=== PATIENT | male | born 1960 | race Caucasian/White ===

== ENCOUNTER 2016-07-15 20:49 | Emergency (ER) | payer OTHER ==
[~2016-07-15 20:49] MED LIST: /AMLO25TA PO; /PANT40TA PO; COUM7.5T PO; IBUPPOW25 PO; PERC5TAB PO; TYLE325T5 PO
[2016-07-15] MEDS ORDERED: ONDANSETRON 4MG/2ML VIAL (J2405) As Ordered ONE (22:12)
[2016-07-15] MEDS ORDERED: MORPHINE 4 MG/ML 1ML SYRINGE As Ordered ONE (22:13)
[2016-07-15 22:38] LABS: BASO % 0.6 % (0.0-1.0); EOS # 0.2 K/mm3 (0.0-0.50); EOS % 1.7 % (0.0-3.0); LARGE UNSTAINED CELL # 0.2 K/mm3 (0.0-0.4); LARGE UNSTAINED CELL % 1.6 % (0.0-4.0); LYMPH # 2.8 K/mm3 (1.5-4.5); LYMPH % 31.3 % (24.0-44.0); MEAN CORPUSCULAR HGB CONC 33.8 g/dl (32.0-36.5); MEAN CORPUSCULAR VOLUME 94.5 fl (80.0-96.0); MONO # 0.4 K/mm3 (0.0-0.8); MONO % 4.5 % (0.0-5.0); NEUTROPHILS # 5.5 K/mm3 (1.8-7.7); NEUTROPHILS % 60.3 % (36.0-66.0); PLATELET COUNT, AUTOMATED 193 k/mm3 (150-450); RED CELL DISTRIBUTION WIDTH 12.4 % (11.5-14.5)
[2016-07-15 22:55] LABS: ALBUMIN 3.6 GM/DL (3.2-5.2); ALKALINE PHOSPHATASE 98 U/L (45-117); ALT/SGPT 28 U/L (12-78); AMYLASE 31 U/L (25-115); ANION GAP 8 MEQ/L (8-16); AST/SGOT 20 U/L (15-37); BILIRUBIN,DIRECT < 0.1 MG/DL (0.0-0.2); BILIRUBIN,TOTAL 0.4 MG/DL (0.2-1.0); BLOOD UREA NITROGEN 12 MG/DL (7-18); CALCIUM LEVEL 8.2 MG/DL (8.5-10.1); CARBON DIOXIDE LEVEL 27 MEQ/L (21-32); CHLORIDE LEVEL 110 MEQ/L (98-107); CREATININE FOR GFR 0.86 MG/DL (0.70-1.30); GLOMERULAR FILTRATION RATE > 60.0 (>56); GLUCOSE, FASTING 102 MG/DL (70-105); POTASSIUM SERUM 3.9 MEQ/L (3.5-5.1); SODIUM LEVEL 145 MEQ/L (136-145); TOTAL PROTEIN 7.2 GM/DL (6.4-8.2)
[2016-07-15] MEDS ORDERED: ISOVUE-370 76% 100ML VIAL (Q9967) As Ordered ONE (22:58)
--- NOTE | 2016-07-15 23:40 | REPUSA ---
CT of the abdomen and pelvis with contrast Clinical statement: Pain. Technique: Multiple axial CT images were obtained from the base of the lungs through the floor of the pelvis utilizing 5 mm axial slices after administration of nonionic intravenous contrast. Coronal an d sagittal reconstructions were also obtained. Comparison: 03/09/2012. Findings: Chest: The visualized lung bases are clear. Abdomen: The liver, spleen, pancreas, left kidney, gallbladder, and adrenal glands are unremarkable. Multiple simple cysts are seen in the right kidney. There is a small duodenal diverticulum. The aorta demonstrates mild atherosclerotic disease but is within normal limits. There is no evidence of abdom inal lymphadenopathy or ascites. Pelvis: The bowel is unremarkable, with no obstructive or inflammatory changes. The appendix is ye l. The urinary bladder is within normal limits. The other pelvic structures appear grossly intact. Th ere is no evidence of pelvic lymphadenopathy or ascites. Bones: There are no suspicious osseous abnormalities seen. Impression: 1. No acute obstructive or inflammatory bowel changes. The appendix is normal. 2. Multiple simple right renal cysts.
--- NOTE | 2016-07-16 00:42 | EDDOCDS ---
Nurse's Notes [facility] Name: Domenico Hughes Age: 56 yrs Sex: Male : 1960 Arrival Date: 07/15/2016 Time: 20:49 Bed TR8 Private MD: Scott Navarrete Diagnosis: Lower abdominal pain, unspecified Presentation: 07/15 21:04 Presenting complaint: Patient states: Right lower abdomen pain since yesterday. pain rs3 unchanged with position change. Was seen at urgent care today. said if it get worse to go to ER. denies of diarrhea,nausea, vomiting. Adult Sepsis Screening: The patient does not have new or worsening altered mentation. Patient's respiratory rate is less than 22. Systolic blood pressure is greater than 100. Patient has a qSOFA score of 0- Negative Sepsis Screen. Suicide/Homicide risk assessment- the patient denies having any suicidal and/or homicidal ideations and does not present with any other emotional, behavioral or mental health complaints. Status: Patient is not a room service attendant or dependent. Transition of care: patient was not received from another setting of care. 21:04 Acuity: LIONEL Level 3 rs3 21:04 Method Of Arrival: Walkin/Carried/Asstd rs3 Triage Assessment: 21:04 General: Appears in no apparent distress. Pain: Location: right lower quadrant. Pt rs3 Declines HIV testing. GI: Reports lower abdominal pain. Historical: - Allergies: PENICILLINS (Rash); Aspirin (Rash); - Home Meds: 1. amlodipine 5 mg Oral tab 1 tab once daily 2. Xarelto 20 mg oral tab 1 tab once daily 3. Protonix 40 mg Oral TbEC 1 tab once daily 4. atorvastatin 80 mg oral tab 1 tab once daily - PMHx: Hypercholesterolemia; GERD; Hypertension; DVT; - PSHx: none; - Social history: Smoking status: Patient uses tobacco products, light tobacco smoker. No barriers to communication noted, The patient speaks fluent Ugandan. - Family history: Not pertinent. - : The pt / caregiver states he / she is on anticoagulants: Xarelto Home medication list is obtained from the patient. - Exposure Risk Screening:: None identified. Screenin:28 Screening information is obtained from the patient. Fall risk: No risks identified. cf2 Assistance ADL's: requires no assistance with activities of daily living. Abuse/DV Screen: The patient / caregiver reports he/she is: not in a situation that causes fear, pain or injury. Nutritional screening: No deficits noted. Advance Directives: Further advance directive information is declined. home support is adequate. Assessment: 22:28 Adult Sepsis Screening: The patient does not have new or worsening altered mentation. cf2 Patient's respiratory rate is less than 22. Systolic blood pressure is greater than 100. Patient has a qSOFA score of 0- Negative Sepsis Screen. General: Appears in no apparent distress, comfortable, Behavior is appropriate for age, cooperative. Pain: Location: abdomen. Neurological: No deficits noted. EENT: No deficits noted. Cardiovascular: No deficits noted. Respiratory: No deficits noted. GI: Abdomen is flat, non- distended Bowel sounds present X 4 quads. Abd is soft Abd is tender to palpation in right lower quadrant. : No deficits noted. Derm: No deficits noted. Musculoskeletal: No deficits noted. Injury Description: No known injury. Vital Signs: 20:51 BP 152 / 80; Pulse 88; Resp 18; Temp 97.7; Pulse Ox 95% ; Weight 86.18 kg; Height 5 ft. elp 9 in. (175.26 cm); 07/16 00:40 BP 124 / 75; Pulse 79; Resp 16; Temp 97.6(T); cz 07/15 20:51 Body Mass Index 28.06 (86.18 kg, 175.26 cm) elp Vitals: 07/15 20:51 Log In Time: July 15, 2016 at 20:49. elp ED Course: 20:50 Patient visited by Lana Trujillo PCA. elp 20:50 Scott Navarrete DO is Private Physician. elp 20:50 Scott Navarrete DO is Private Physician. elp 20:50 Patient moved to Waiting elp 20:51 Patient visited by Lana Trujillo PCA. elp 20:51 Patient moved to Pre RCE elp 21:07 Triage Initiated rs3 21:40 Patient moved to Triage 3 jo3 21:46 Marcos English [facility]-C [facility]. ck7 21:46 Jose Manuel Cabrera DO is Attending Physician. ck7 21:46 Patient visited by Marcos English RPA-C. ck7 22:05 Patient moved to I2 / M2 cz 22:26 Sandy Bartholomew,RN is Primary Nurse. cf2 22:26 Patient visited by Sandy Bartholomew,VIDHI. cf2 22:27 Amylase Sent. cf2 22:27 Basic Metabolic Profile Sent. cf2 22:27 CBC with Diff Sent. cf2 22:27 Lipase Sent. cf2 22:27 Liver Profile Sent. cf2 22:27 Urinalysis Sent. cf2 22:27 Urine Culture Sent. cf2 22:28 The patient / caregiver is instructed regarding the plan of care and ED course. Patient cf2 has correct armband on for positive identification. Placed in gown. Bed in low position. Call light in reach. Side rails up X 1. Side rails up X2. Property :Personal belongings accompany Pt. Door closed. Noise minimized. Visitors limited. Lights dimmed. Moved to private room. Verbal reassurance given. Warm blanket given. Pillow given. Head of bed elevated. Diet: Patient is NPO. 22:28 Inserted saline lock: 20 gauge in left antecubital area and blood collected. The cf2 patient tolerated the procedure well. No procedures done that require assistance. 23:07 Patient visited by Marcos English RPA-C. ck7 23:19 [facility] Payment Agreement was scanned into [email or web address] and attached to record. ks 23:38 Patient visited by Marcos English RPA-C. ck7 07/16 00:06 CT ABD & PELVIS: IV Contrast Only Returned. EDMS 00:25 Patient moved to [facility] Administered Medications: 07/15 22:26 Drug: NS 0.9% 1000 ml [sodium chloride 0.9 % intravenous solution] Route: IV; Rate: cf2 bolus; Site: left antecubital; 07/16 00:39 Follow up: IV Status: Completed infusion 07/15 22:27 Drug: morphine 4 mg [morphine 4 mg/mL intravenous cartridge (1 mL)] Route: IVP; Site: cf2 left antecubital; 22:27 Drug: Ondansetron 4 mg [ondansetron HCl 2 mg/mL intravenous solution (2 mL)] Route: cf2 IVP; Site: left antecubital; Order Results: Lab Order: Amylase; SPEC'M 07/15/16 22:23 Test: AMYLASE; Value: 31; Range: 25-115; Units: U/L; Status: F Lab Order: Basic Metabolic Profile; SPEC07/15/16 22:23 Test: GLUCOSE, FASTING; Value: 102; Range: 70-105; Units: MG/DL; Status: F Test: BLOOD UREA NITROGEN; Value: 12; Range: 7-18; Units: MG/DL; Status: F Test: CREATININE FOR GFR; Value: 0.86; Range: 0.70-1.30; Units: MG/DL; Status: F Test: GLOMERULAR FILTRATION RATE; Value: > 60.0; Range: >56; Status: F Test: SODIUM LEVEL; Value: 145; Range: 136-145; Units: MEQ/L; Status: F Test: POTASSIUM SERUM; Value: 3.9; Range: 3.5-5.1; Units: MEQ/L; Status: F Test: CHLORIDE LEVEL; Value: 110; Range: 98-107; Abnormal: Above high normal; Units: MEQ/L; Status: F Test: CARBON DIOXIDE LEVEL; Value: 27; Range: 21-32; Units: MEQ/L; Status: F Test: ANION GAP; Value: 8; Range: 8-16; Units: MEQ/L; Status: F Test: CALCIUM LEVEL; Value: 8.2; Range: 8.5-10.1; Abnormal: Below low normal; Units: MG/DL; Status: F Test Note: ; Units are mL/min/1.73 m2 Chronic Kidney Disease Staging per NKF: Stage I & II GFR >=60 Normal to Mildly Decreased Stage III GFR 30-59 Moderately Decreased Stage IV GFR 15-29 Severely Decreased Stage V GFR <15 Very Little GFR Left ESRD GFR <15 on [employer]ATER [employer]PER[employer] Lab Order: CBC with Diff; SPEC07/15/16 22:23 Test: WHITE BLOOD COUNT; Value: 9.0; Range: 4.0-10.0; Units: K/mm3; Status: F Test: RED BLOOD COUNT; Value: 5.05; Range: 4.30-6.10; Units: M/mm3; Status: F Test: HEMOGLOBIN; Value: 16.2; Range: 14.0-18.0; Units: g/dl; Status: F Test: HEMATOCRIT; Value: 47.8; Range: 42.0-52.0; Units: %; Status: F Test: MEAN CORPUSCULAR VOLUME; Value: 94.5; Range: 80.0-96.0; Units: fl; Status: F Test: MEAN CORPUSCULAR HEMOGLOBIN; Value: 32.0; Range: 27.0-33.0; Units: pg; Status: F Test: MEAN CORPUSCULAR HGB CONC; Value: 33.8; Range: 32.0-36.5; Units: g/dl; Status: F Test: RED CELL DISTRIBUTION WIDTH; Value: 12.4; Range: 11.5-14.5; Units: %; Status: F Test: PLATELET COUNT, AUTOMATED; Value: 193; Range: 150-450; Units: k/mm3; Status: F Test: NEUTROPHILS %; Value: 60.3; Range: 36.0-66.0; Units: %; Status: F Test: LYMPH %; Value: 31.3; Range: 24.0-44.0; Units: %; Status: F Test: MONO %; Value: 4.5; Range: 0.0-5.0; Units: %; Status: F Test: EOS %; Value: 1.7; Range: 0.0-3.0; Units: %; Status: F Test: BASO %; Value: 0.6; Range: 0.0-1.0; Units: %; Status: F Test: LARGE UNSTAINED CELL %; Value: 1.6; Range: 0.0-4.0; Units: %; Status: F Test: NEUTROPHILS #; Value: 5.5; Range: 1.8-7.7; Units: K/mm3; Status: F Test: LYMPH #; Value: 2.8; Range: 1.5-4.5; Units: K/mm3; Status: F Test: MONO #; Value: 0.4; Range: 0.0-0.8; Units: K/mm3; Status: F Test: EOS #; Value: 0.2; Range: 0.0-0.50; Units: K/mm3; Status: F Test: BASO #; Value: 0.0; Range: 0.0-0.2; Units: K/mm3; Status: F Test: LARGE UNSTAINED CELL #; Value: 0.2; Range: 0.0-0.4; Units: K/mm3; Status: F Lab Order: Lipase; [facility] 07/15/16 22:23 Test: LIPASE; Value: 199; Range: 73-393; Units: U/L; Status: F Lab Order: Liver Profile; [facility] 07/15/16 22:23 Test: AST/SGOT; Value: 20; Range: 15-37; Units: U/L; Status: F Test: ALT/SGPT; Value: 28; Range: 12-78; Units: U/L; Status: F Test: ALKALINE PHOSPHATASE; Value: 98; Range: 45-117; Units: U/L; Status: F Test: BILIRUBIN,TOTAL; Value: 0.4; Range: 0.2-1.0; Units: MG/DL; Status: F Test: BILIRUBIN,DIRECT; Value: < 0.1; Range: 0.0-0.2; Units: MG/DL; Status: F Test: TOTAL PROTEIN; Value: 7.2; Range: 6.4-8.2; Units: GM/DL; Status: F Test: ALBUMIN; Value: 3.6; Range: 3.2-5.2; Units: GM/DL; Status: F Test: ALBUMIN/GLOBULIN RATIO; Value: 1.00; Range: 1.00-1.93; Status: F Lab Order: Urinalysis; [facility] 07/15/16 22: Test: APPEARANCE, URINE; Value: CLEAR; Range: CLEAR; Status: F Test: COLOR, URINE; Value: YELLOW; Range: YELLOW; Status: F Test: PH,URINE; Value: 5.0; Range: 5.0-9.0; Units: UNITS; Status: F Test: SPECIFIC GRAVITY URINE AUTO; Value: 1.014; Range: 1.002-1.035; Status: F Test: PROTEIN, URINE AUTO; Value: NEGATIVE; Range: NEGATIVE; Units: mg/dL; Status: F Test: GLUCOSE, URINE (UA) AUTO; Value: NEGATIVE; Range: NEGATIVE; Units: mg/dL; Status: F Test: KETONE, URINE AUTO; Value: NEGATIVE; Range: NEGATIVE; Units: mg/dL; Status: F Test: UROBILINOGEN, URINE AUTO; Value: 0.2; Range: 0.0-2.0; Units: mg/dL; Status: F Test: BILIRUBIN, URINE AUTO; Value: NEGATIVE; Range: NEGATIVE; Status: F Test: NITRITE, URINE AUTO; Value: NEGATIVE; Range: NEGATIVE; Status: F Test: LEUKOCYTE ESTERASE, URINE AUTO; Value: NEGATIVE; Range: NEGATIVE; Status: F Test: BLOOD, URINE BLOOD; Value: 2+; Range: NEGATIVE; Abnormal: Above high normal; Status: F Test: WBC, URINE AUTO; Value: 1; Range: 0-3; Units: /HPF; Status: F Test: RBC, URINE AUTO; Value: 11; Range: 0-3; Abnormal: Above high normal; Units: /HPF; Status: F Test: BACTERIA, URINE AUTO; Value: NEGATIVE; Range: NEGATIVE; Status: F Test: SQUAMOUS EPITHELIAL CELL UR AU; Value: 0; Range: 0-6; Units: /HPF; Status: F Test: MUCUS, URINE; Value: SMALL; Range: NEGATIVE; Status: F Test: HYALINE CAST, URINE AUTO; Value: 0; Range: 0-1; Units: /LPF; Status: F Radiology Order: CT ABD & PELVIS: IV Contrast Only Test: CT ABD & PELVIS: IV Contrast Only REASON FOR EXAMINATION: Appendicitis; ; CT of the abdomen and pelvis with contrast; Clinical statement: Pain.; Technique: Multiple axial CT images were obtained from the base of the lungs through the floor of the; pelvis utilizing 5 mm axial slices after administration of nonionic intravenous contrast. Coronal an; d sagittal reconstructions were also obtained.; Comparison: 03/09/2012.; Findings:; Chest: The visualized lung bases are clear.; Abdomen: The liver, spleen, pancreas, left kidney, gallbladder, and adrenal glands are unremarkable.; Multiple simple cysts are seen in the right kidney. There is a small duodenal diverticulum. The aorta; demonstrates mild atherosclerotic disease but is within normal limits. There is no evidence of abdom; inal lymphadenopathy or ascites.; Pelvis: The bowel is unremarkable, with no obstructive or inflammatory changes. The appendix is ye; l. The urinary bladder is within normal limits. The other pelvic structures appear grossly intact. Th; ere is no evidence of pelvic lymphadenopathy or ascites.; Bones: There are no suspicious osseous abnormalities seen.; Impression:; 1. No acute obstructive or inflammatory bowel changes. The appendix is normal.; 2. Multiple simple right renal cysts.; ; Outcome: 07/16 00:00 Discharge ordered by Provider. ck7 00:41 Discharge Assessment: Patient awake, alert and oriented x 3. No cognitive and/or cz functional deficits noted. Patient verbalized understanding of disposition instructions. patient administered narcotics - no. The following High Risk Discharge criteria are identified: None. Discharged to home ambulatory, with family. Condition: stable. Discharge instructions given to patient, Instructed on discharge instructions, follow up and referral plans. medication usage, Demonstrated understanding of instructions, medications, Pt was receptive of discharge instructions/ teaching. Prescriptions given X 2. CT Study completed. 00:41 Patient left the ED. cz Signatures: Dispatcher [employer] EDMS Zachariah Giordano, RN RN cz Cassia BarbaRN RN ryan3 Erin ShepherdRN RN rs3 Marcos English, RPA-C RPA-Cck7 Lana Trujillo, UTILIZATION MANAGEMENT UM NURSE UTILIZATION MANAGEMENT UM NURSE Rosemarie Johnson, Reg Reg ks16 Sandy Bartholomew,RN RN cf2 MTDD
--- NOTE | 2016-07-16 00:42 | EDDOCDS ---
Physician Documentation [facility] Name: Domenico Hughes Age: 56 yrs Sex: Male : 1960 Arrival Date: 07/15/2016 Time: 20:49 Bed TR8 Private MD: Scott Navarrete Disposition: 07/16/16 00:00 Discharged to Home/Self Care. Impression: Lower abdominal pain, unspecified. - Condition is Stable. - Discharge Instructions: Abdominal Pain, Adult. - Prescriptions for ZOFRAN ODT 4 mg - dissolve 1 tablet by ORAL route 4 times per day As needed do not chew, do not swallow whole; 10 tablet. Simethicone 80 mg - chew 1 tablet by ORAL route after meals and before bedtime chewable tablet; 30 tablet. - Medication Reconciliation, Local Pharmacy Hours form. - Follow up: Private Physician; When: 1 - 2 days; Reason: Recheck today's complaints, Continuance of care. - Problem is new. - Symptoms have improved. - Notes: USE MEDICATIONS INSTRUCTED, FOLLOW UP WITH YOUR DOCTOR, RETURN TO THE ER IF THE SYMPTOMS WORSEN OR BECOME CONCERNING Historical: - Allergies: PENICILLINS (Rash); Aspirin (Rash); - Home Meds: 1. amlodipine 5 mg Oral tab 1 tab once daily 2. Xarelto 20 mg oral tab 1 tab once daily 3. Protonix 40 mg Oral TbEC 1 tab once daily 4. atorvastatin 80 mg oral tab 1 tab once daily - PMHx: Hypercholesterolemia; GERD; Hypertension; DVT; - PSHx: none; - Social history: Smoking status: Patient uses tobacco products, light tobacco smoker. No barriers to communication noted, The patient speaks fluent Maori. - Family history: Not pertinent. - : The pt / caregiver states he / she is on anticoagulants: Xarelto Home medication list is obtained from the patient. - Exposure Risk Screening:: None identified. Vital Signs: 07/15 20:51 BP 152 / 80; Pulse 88; Resp 18; Temp 97.7; Pulse Ox 95% ; Weight 86.18 kg / 189.99 lbs; elp Height 5 ft. 9 in. (175.26 cm); 07/16 00:40 BP 124 / 75; Pulse 79; Resp 16; Temp 97.6(T); cz 07/15 20:51 Body Mass Index 28.06 (86.18 kg, 175.26 cm) elp MDM: 07/15 22:05 Undress patient appropriately for examination ordered. ck7 22:05 IV Saline Lock ordered. ck7 22:05 morphine 4 mg IVP once ordered. ck7 22:05 Ondansetron 4 mg IVP once ordered. ck7 22:05 NS 0.9% 1000 ml IV at bolus once ordered. ck7 22:06 Amylase Ordered. EDMS 22:06 Basic Metabolic Profile Ordered. EDMS 22:06 CBC with Diff Ordered. EDMS 22:06 Lipase Ordered. EDMS 22:06 Liver Profile Ordered. EDMS 22:06 Urinalysis Ordered. EDMS 22:06 Urine Culture Ordered. EDMS 22:06 NOTHING BY MOUTH+DIET ordered. EDMS 22:06 CT ABD & PELVIS: IV Contrast Only Ordered. EDMS 23:04 Financial registration complete. [email or web address] 23:08 Basic Metabolic Profile Reviewed. ck7 23:08 Urinalysis Reviewed. ck7 23:08 Amylase Reviewed. ck7 23:08 CBC with Diff Reviewed. ck7 23:08 Lipase Reviewed. ck7 23:08 Liver Profile Reviewed. ck7 23:19 [facility] Payment Agreement was scanned into [employer] and attached to record. [email or web address] Administered Medications: 22:26 Drug: NS 0.9% 1000 ml [sodium chloride 0.9 % intravenous solution] Route: IV; Rate: cf2 bolus; Site: left antecubital; 07/16 00:39 Follow up: IV Status: Completed infusion 07/15 22:27 Drug: morphine 4 mg [morphine 4 mg/mL intravenous cartridge (1 mL)] Route: IVP; Site: cf2 left antecubital; 22:27 Drug: Ondansetron 4 mg [ondansetron HCl 2 mg/mL intravenous solution (2 mL)] Route: cf2 IVP; Site: left antecubital; Signatures: Dispatcher [employer] EDMS Zachariah Giordano RN RN cz Erin Shepherd RN RN rs3 Marcos English, RPA-C RPA-Cck7 Rosemarie Barakat, Reg Reg ks16 Sandy Bartholomew,RN RN cf2 The chart was reviewed and I authenticate all verbal orders and agree with the evaluation and treatment provided.Attachments: 23:19 [facility] Payment Agreement [email or web address] MTDD
--- NOTE | 2016-07-18 01:43 | EDDOCDS ---
Physician Documentation [facility] Name: Domenico Hughes Age: 56 yrs Sex: Male : 1960 Arrival Date: 07/15/2016 Time: 20:49 Bed TR8 Private MD: Scott Navarrete Disposition: 07/16/16 00:00 Discharged to Home/Self Care. Impression: Lower abdominal pain, unspecified. - Condition is Stable. - Discharge Instructions: Abdominal Pain, Adult. - Prescriptions for ZOFRAN ODT 4 mg - dissolve 1 tablet by ORAL route 4 times per day As needed do not chew, do not swallow whole; 10 tablet. Simethicone 80 mg - chew 1 tablet by ORAL route after meals and before bedtime chewable tablet; 30 tablet. - Medication Reconciliation, Local Pharmacy Hours form. - Follow up: Private Physician; When: 1 - 2 days; Reason: Recheck today's complaints, Continuance of care. - Problem is new. - Symptoms have improved. - Notes: USE MEDICATIONS INSTRUCTED, FOLLOW UP WITH YOUR DOCTOR, RETURN TO THE ER IF THE SYMPTOMS WORSEN OR BECOME CONCERNING Historical: - Allergies: PENICILLINS (Rash); Aspirin (Rash); - Home Meds: 1. amlodipine 5 mg Oral tab 1 tab once daily 2. Xarelto 20 mg oral tab 1 tab once daily 3. Protonix 40 mg Oral TbEC 1 tab once daily 4. atorvastatin 80 mg oral tab 1 tab once daily - PMHx: Hypercholesterolemia; GERD; Hypertension; DVT; - PSHx: none; - Social history: Smoking status: Patient uses tobacco products, light tobacco smoker. No barriers to communication noted, The patient speaks fluent Macedonian. - Family history: Not pertinent. - : The pt / caregiver states he / she is on anticoagulants: Xarelto Home medication list is obtained from the patient. - Exposure Risk Screening:: None identified. Vital Signs: 07/15 20:51 BP 152 / 80; Pulse 88; Resp 18; Temp 97.7; Pulse Ox 95% ; Weight 86.18 kg / 189.99 lbs; elp Height 5 ft. 9 in. (175.26 cm); 07/16 00:40 BP 124 / 75; Pulse 79; Resp 16; Temp 97.6(T); cz 07/15 20:51 Body Mass Index 28.06 (86.18 kg, 175.26 cm) elp MDM: 07/15 22:05 Undress patient appropriately for examination ordered. ck7 22:05 IV Saline Lock ordered. ck7 22:05 morphine 4 mg IVP once ordered. ck7 22:05 Ondansetron 4 mg IVP once ordered. ck7 22:05 NS 0.9% 1000 ml IV at bolus once ordered. ck7 22:06 Amylase Ordered. EDMS 22:06 Basic Metabolic Profile Ordered. EDMS 22:06 CBC with Diff Ordered. EDMS 22:06 Lipase Ordered. EDMS 22:06 Liver Profile Ordered. EDMS 22:06 Urinalysis Ordered. EDMS 22:06 Urine Culture Ordered. EDMS 22:06 NOTHING BY MOUTH+DIET ordered. EDMS 22:06 CT ABD & PELVIS: IV Contrast Only Ordered. EDMS 23:04 Financial registration complete. [email or web address] 23:08 Basic Metabolic Profile Reviewed. ck7 23:08 Urinalysis Reviewed. ck7 23:08 Amylase Reviewed. ck7 23:08 CBC with Diff Reviewed. ck7 23:08 Lipase Reviewed. ck7 23:08 Liver Profile Reviewed. ck7 23:19 [facility] Payment Agreement was scanned into [employer] and attached to record. [facility] 07/16 09:56 T-Sheet-- Draft Copy was scanned into [employer] and attached to record. gb Administered Medications: 07/15 22:26 Drug: NS 0.9% 1000 ml [sodium chloride 0.9 % intravenous solution] Route: IV; Rate: cf2 bolus; Site: left antecubital; 07/16 00:39 Follow up: IV Status: Completed infusion 07/15 22:27 Drug: morphine 4 mg [morphine 4 mg/mL intravenous cartridge (1 mL)] Route: IVP; Site: cf2 left antecubital; 22:27 Drug: Ondansetron 4 mg [ondansetron HCl 2 mg/mL intravenous solution (2 mL)] Route: cf2 IVP; Site: left antecubital; Signatures: Dispatcher [employer] EDZachariah Borges RN RN cz Cristy Mcarthur, Reg Reg gb Erin Shepherd RN RN rs3 Marcos English, RPA-C RPA-Cck7 Rosemarie Barakat, Reg Reg ks16 Familetti-Raheel,Sandy,RN RN cf2 The chart was reviewed and I authenticate all verbal orders and agree with the evaluation and treatment provided.Attachments: 23:19 [facility] Payment Agreement [email or web address] 07/16 09:56 T-Sheet-- Draft Copy gb Chart Complete MTDD
--- NOTE | 2016-07-18 01:43 | EDDOCDS ---
Physician Documentation [facility] Name: Domenico Hughes Age: 56 yrs Sex: Male : 1960 Arrival Date: 07/15/2016 Time: 20:49 Bed TR8 Private MD: Scott Navarrete Disposition: 07/16/16 00:00 Discharged to Home/Self Care. Impression: Lower abdominal pain, unspecified. - Condition is Stable. - Discharge Instructions: Abdominal Pain, Adult. - Prescriptions for ZOFRAN ODT 4 mg - dissolve 1 tablet by ORAL route 4 times per day As needed do not chew, do not swallow whole; 10 tablet. Simethicone 80 mg - chew 1 tablet by ORAL route after meals and before bedtime chewable tablet; 30 tablet. - Medication Reconciliation, Local Pharmacy Hours form. - Follow up: Private Physician; When: 1 - 2 days; Reason: Recheck today's complaints, Continuance of care. - Problem is new. - Symptoms have improved. - Notes: USE MEDICATIONS INSTRUCTED, FOLLOW UP WITH YOUR DOCTOR, RETURN TO THE ER IF THE SYMPTOMS WORSEN OR BECOME CONCERNING Historical: - Allergies: PENICILLINS (Rash); Aspirin (Rash); - Home Meds: 1. amlodipine 5 mg Oral tab 1 tab once daily 2. Xarelto 20 mg oral tab 1 tab once daily 3. Protonix 40 mg Oral TbEC 1 tab once daily 4. atorvastatin 80 mg oral tab 1 tab once daily - PMHx: Hypercholesterolemia; GERD; Hypertension; DVT; - PSHx: none; - Social history: Smoking status: Patient uses tobacco products, light tobacco smoker. No barriers to communication noted, The patient speaks fluent Slovak. - Family history: Not pertinent. - : The pt / caregiver states he / she is on anticoagulants: Xarelto Home medication list is obtained from the patient. - Exposure Risk Screening:: None identified. Vital Signs: 07/15 20:51 BP 152 / 80; Pulse 88; Resp 18; Temp 97.7; Pulse Ox 95% ; Weight 86.18 kg / 189.99 lbs; elp Height 5 ft. 9 in. (175.26 cm); 07/16 00:40 BP 124 / 75; Pulse 79; Resp 16; Temp 97.6(T); cz 07/15 20:51 Body Mass Index 28.06 (86.18 kg, 175.26 cm) elp MDM: 07/15 22:05 Undress patient appropriately for examination ordered. ck7 22:05 IV Saline Lock ordered. ck7 22:05 morphine 4 mg IVP once ordered. ck7 22:05 Ondansetron 4 mg IVP once ordered. ck7 22:05 NS 0.9% 1000 ml IV at bolus once ordered. ck7 22:06 Amylase Ordered. EDMS 22:06 Basic Metabolic Profile Ordered. EDMS 22:06 CBC with Diff Ordered. EDMS 22:06 Lipase Ordered. EDMS 22:06 Liver Profile Ordered. EDMS 22:06 Urinalysis Ordered. EDMS 22:06 Urine Culture Ordered. EDMS 22:06 NOTHING BY MOUTH+DIET ordered. EDMS 22:06 CT ABD & PELVIS: IV Contrast Only Ordered. EDMS 23:04 Financial registration complete. ks16 23:08 Basic Metabolic Profile Reviewed. ck7 23:08 Urinalysis Reviewed. ck7 23:08 Amylase Reviewed. ck7 23:08 CBC with Diff Reviewed. ck7 23:08 Lipase Reviewed. ck7 23:08 Liver Profile Reviewed. ck7 23:19 [facility] Payment Agreement was scanned into [employer] and attached to record. [facility] 07/16 09:56 T-Sheet-- Draft Copy was scanned into [employer] and attached to record. gb Administered Medications: 07/15 22:26 Drug: NS 0.9% 1000 ml [sodium chloride 0.9 % intravenous solution] Route: IV; Rate: cf2 bolus; Site: left antecubital; 07/16 00:39 Follow up: IV Status: Completed infusion 07/15 22:27 Drug: morphine 4 mg [morphine 4 mg/mL intravenous cartridge (1 mL)] Route: IVP; Site: cf2 left antecubital; 22:27 Drug: Ondansetron 4 mg [ondansetron HCl 2 mg/mL intravenous solution (2 mL)] Route: cf2 IVP; Site: left antecubital; Signatures: Dispatcher [employer] EDZachariah Borges RN RN cz Cristy Mcarthur, Reg Reg gb Erin Shepherd RN RN rs3 Marcos English, RPA-C RPA-Cck7 Rosemarie Barakat, Reg Reg ks16 Familetti-Raheel,Sandy,RN RN cf2 The chart was reviewed and I authenticate all verbal orders and agree with the evaluation and treatment provided.Attachments: 23:19 [facility] Payment Agreement ks16 07/16 09:56 T-Sheet-- Draft Copy gb Chart Complete MTDD
--- NOTE | 2016-07-18 01:43 | EDDOCDS ---
Nurse's Notes [facility] Name: Domenico Hughes Age: 56 yrs Sex: Male : 1960 Arrival Date: 07/15/2016 Time: 20:49 Bed TR8 Private MD: Scott Navarrete Diagnosis: Lower abdominal pain, unspecified Presentation: 07/15 21:04 Presenting complaint: Patient states: Right lower abdomen pain since yesterday. pain rs3 unchanged with position change. Was seen at urgent care today. said if it get worse to go to ER. denies of diarrhea,nausea, vomiting. Adult Sepsis Screening: The patient does not have new or worsening altered mentation. Patient's respiratory rate is less than 22. Systolic blood pressure is greater than 100. Patient has a qSOFA score of 0- Negative Sepsis Screen. Suicide/Homicide risk assessment- the patient denies having any suicidal and/or homicidal ideations and does not present with any other emotional, behavioral or mental health complaints. 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 Transition of care: patient was not received from another setting of care. 21:04 Acuity: LIONEL Level 3 rs3 21:04 Method Of Arrival: Walkin/Carried/Asstd rs3 Triage Assessment: 21:04 General: Appears in no apparent distress. Pain: Location: right lower quadrant. Pt rs3 Declines HIV testing. GI: Reports lower abdominal pain. Historical: - Allergies: PENICILLINS (Rash); Aspirin (Rash); - Home Meds: 1. amlodipine 5 mg Oral tab 1 tab once daily 2. Xarelto 20 mg oral tab 1 tab once daily 3. Protonix 40 mg Oral TbEC 1 tab once daily 4. atorvastatin 80 mg oral tab 1 tab once daily - PMHx: Hypercholesterolemia; GERD; Hypertension; DVT; - PSHx: none; - Social history: Smoking status: Patient uses tobacco products, light tobacco smoker. No barriers to communication noted, The patient speaks fluent Sri Lankan. - Family history: Not pertinent. - : The pt / caregiver states he / she is on anticoagulants: Xarelto Home medication list is obtained from the patient. - Exposure Risk Screening:: None identified. Screenin:28 Screening information is obtained from the patient. Fall risk: No risks identified. cf2 Assistance ADL's: requires no assistance with activities of daily living. Abuse/DV Screen: The patient / caregiver reports he/she is: not in a situation that causes fear, pain or injury. Nutritional screening: No deficits noted. Advance Directives: Further advance directive information is declined. home support is adequate. Assessment: 22:28 Adult Sepsis Screening: The patient does not have new or worsening altered mentation. cf2 Patient's respiratory rate is less than 22. Systolic blood pressure is greater than 100. Patient has a qSOFA score of 0- Negative Sepsis Screen. General: Appears in no apparent distress, comfortable, Behavior is appropriate for age, cooperative. Pain: Location: abdomen. Neurological: No deficits noted. EENT: No deficits noted. Cardiovascular: No deficits noted. Respiratory: No deficits noted. GI: Abdomen is flat, non- distended Bowel sounds present X 4 quads. Abd is soft Abd is tender to palpation in right lower quadrant. : No deficits noted. Derm: No deficits noted. Musculoskeletal: No deficits noted. Injury Description: No known injury. Vital Signs: 20:51 BP 152 / 80; Pulse 88; Resp 18; Temp 97.7; Pulse Ox 95% ; Weight 86.18 kg; Height 5 ft. elp 9 in. (175.26 cm); 07/16 00:40 BP 124 / 75; Pulse 79; Resp 16; Temp 97.6(T); cz 07/15 20:51 Body Mass Index 28.06 (86.18 kg, 175.26 cm) elp Vitals: 07/15 20:51 Log In Time: July 15, 2016 at 20:49. elp ED Course: 20:50 Patient visited by Lana Trujillo PCA. elp 20:50 Scott Navarrete DO is Private Physician. elp 20:50 Scott Navarrete DO is Private Physician. elp 20:50 Patient moved to Waiting elp 20:51 Patient visited by Lana Trujillo PCA. elp 20:51 Patient moved to Pre RCE elp 21:07 Triage Initiated rs3 21:40 Patient moved to Triage 3 jo3 21:46 Marcos English [facility]-C [facility]. ck7 21:46 Jose Manuel Cabrera DO is Attending Physician. ck7 21:46 Patient visited by Marcos English RPA-C. ck7 22:05 Patient moved to I2 / M2 cz 22:26 Sandy Bartholomew,RN is Primary Nurse. cf2 22:26 Patient visited by Sandy Bartholomew,VIDHI. cf2 22:27 Amylase Sent. cf2 22:27 Basic Metabolic Profile Sent. cf2 22:27 CBC with Diff Sent. cf2 22:27 Lipase Sent. cf2 22:27 Liver Profile Sent. cf2 22:27 Urinalysis Sent. cf2 22:27 Urine Culture Sent. cf2 22:28 The patient / caregiver is instructed regarding the plan of care and ED course. Patient cf2 has correct armband on for positive identification. Placed in gown. Bed in low position. Call light in reach. Side rails up X 1. Side rails up X2. Property :Personal belongings accompany Pt. Door closed. Noise minimized. Visitors limited. Lights dimmed. Moved to private room. Verbal reassurance given. Warm blanket given. Pillow given. Head of bed elevated. Diet: Patient is NPO. 22:28 Inserted saline lock: 20 gauge in left antecubital area and blood collected. The cf2 patient tolerated the procedure well. No procedures done that require assistance. 23:07 Patient visited by Marcos English RPA-C. ck7 23:19 [facility] Payment Agreement was scanned into [employer] and attached to record. ks16 23:38 Patient visited by Marcos English RPA-C. ck7 07/16 00:06 CT ABD & PELVIS: IV Contrast Only Returned. EDMS 00:25 Patient moved to [facility] 09:56 T-Sheet-- Draft Copy was scanned into [employer] and attached to record. gb Administered Medications: 07/15 22:26 Drug: NS 0.9% 1000 ml [sodium chloride 0.9 % intravenous solution] Route: IV; Rate: cf2 bolus; Site: left antecubital; 07/16 00:39 Follow up: IV Status: Completed infusion 07/15 22:27 Drug: morphine 4 mg [morphine 4 mg/mL intravenous cartridge (1 mL)] Route: IVP; Site: cf2 left antecubital; 22:27 Drug: Ondansetron 4 mg [ondansetron HCl 2 mg/mL intravenous solution (2 mL)] Route: cf2 IVP; Site: left antecubital; Order Results: Lab Order: Amylase; SPEC07/15/16 22: Test: AMYLASE; Value: 31; Range: 25-115; Units: U/L; Status: F Lab Order: Basic Metabolic Profile; 07/15/16 22:23 Test: GLUCOSE, FASTING; Value: 102; Range: 70-105; Units: MG/DL; Status: F Test: BLOOD UREA NITROGEN; Value: 12; Range: 7-18; Units: MG/DL; Status: F Test: CREATININE FOR GFR; Value: 0.86; Range: 0.70-1.30; Units: MG/DL; Status: F Test: GLOMERULAR FILTRATION RATE; Value: > 60.0; Range: >56; Status: F Test: SODIUM LEVEL; Value: 145; Range: 136-145; Units: MEQ/L; Status: F Test: POTASSIUM SERUM; Value: 3.9; Range: 3.5-5.1; Units: MEQ/L; Status: F Test: CHLORIDE LEVEL; Value: 110; Range: 98-107; Abnormal: Above high normal; Units: MEQ/L; Status: F Test: CARBON DIOXIDE LEVEL; Value: 27; Range: 21-32; Units: MEQ/L; Status: F Test: ANION GAP; Value: 8; Range: 8-16; Units: MEQ/L; Status: F Test: CALCIUM LEVEL; Value: 8.2; Range: 8.5-10.1; Abnormal: Below low normal; Units: MG/DL; Status: F Test Note: ; Units are mL/min/1.73 m2 Chronic Kidney Disease Staging per NKF: Stage I & II GFR >=60 Normal to Mildly Decreased Stage III GFR 30-59 Moderately Decreased Stage IV GFR 15-29 Severely Decreased Stage V GFR <15 Very Little GFR Left ESRD GFR <15 on TRANSPORTATION PLANNING ENGINEER Lab Order: CBC with Diff; 07/15/16 22:23 Test: WHITE BLOOD COUNT; Value: 9.0; Range: 4.0-10.0; Units: K/mm3; Status: F Test: RED BLOOD COUNT; Value: 5.05; Range: 4.30-6.10; Units: M/mm3; Status: F Test: HEMOGLOBIN; Value: 16.2; Range: 14.0-18.0; Units: g/dl; Status: F Test: HEMATOCRIT; Value: 47.8; Range: 42.0-52.0; Units: %; Status: F Test: MEAN CORPUSCULAR VOLUME; Value: 94.5; Range: 80.0-96.0; Units: fl; Status: F Test: MEAN CORPUSCULAR HEMOGLOBIN; Value: 32.0; Range: 27.0-33.0; Units: pg; Status: F Test: MEAN CORPUSCULAR HGB CONC; Value: 33.8; Range: 32.0-36.5; Units: g/dl; Status: F Test: RED CELL DISTRIBUTION WIDTH; Value: 12.4; Range: 11.5-14.5; Units: %; Status: F Test: PLATELET COUNT, AUTOMATED; Value: 193; Range: 150-450; Units: k/mm3; Status: F Test: NEUTROPHILS %; Value: 60.3; Range: 36.0-66.0; Units: %; Status: F Test: LYMPH %; Value: 31.3; Range: 24.0-44.0; Units: %; Status: F Test: MONO %; Value: 4.5; Range: 0.0-5.0; Units: %; Status: F Test: EOS %; Value: 1.7; Range: 0.0-3.0; Units: %; Status: F Test: BASO %; Value: 0.6; Range: 0.0-1.0; Units: %; Status: F Test: LARGE UNSTAINED CELL %; Value: 1.6; Range: 0.0-4.0; Units: %; Status: F Test: NEUTROPHILS #; Value: 5.5; Range: 1.8-7.7; Units: K/mm3; Status: F Test: LYMPH #; Value: 2.8; Range: 1.5-4.5; Units: K/mm3; Status: F Test: MONO #; Value: 0.4; Range: 0.0-0.8; Units: K/mm3; Status: F Test: EOS #; Value: 0.2; Range: 0.0-0.50; Units: K/mm3; Status: F Test: BASO #; Value: 0.0; Range: 0.0-0.2; Units: K/mm3; Status: F Test: LARGE UNSTAINED CELL #; Value: 0.2; Range: 0.0-0.4; Units: K/mm3; Status: F Lab Order: Lipase; [facility] 07/15/16 22:23 Test: LIPASE; Value: 199; Range: 73-393; Units: U/L; Status: F Lab Order: Liver Profile; [facility] 07/15/16 22: Test: AST/SGOT; Value: 20; Range: 15-37; Units: U/L; Status: F Test: ALT/SGPT; Value: 28; Range: 12-78; Units: U/L; Status: F Test: ALKALINE PHOSPHATASE; Value: 98; Range: 45-117; Units: U/L; Status: F Test: BILIRUBIN,TOTAL; Value: 0.4; Range: 0.2-1.0; Units: MG/DL; Status: F Test: BILIRUBIN,DIRECT; Value: < 0.1; Range: 0.0-0.2; Units: MG/DL; Status: F Test: TOTAL PROTEIN; Value: 7.2; Range: 6.4-8.2; Units: GM/DL; Status: F Test: ALBUMIN; Value: 3.6; Range: 3.2-5.2; Units: GM/DL; Status: F Test: ALBUMIN/GLOBULIN RATIO; Value: 1.00; Range: 1.00-1.93; Status: F Lab Order: Urinalysis; [facility] 07/15/16 22: Test: APPEARANCE, URINE; Value: CLEAR; Range: CLEAR; Status: F Test: COLOR, URINE; Value: YELLOW; Range: YELLOW; Status: F Test: PH,URINE; Value: 5.0; Range: 5.0-9.0; Units: UNITS; Status: F Test: SPECIFIC GRAVITY URINE AUTO; Value: 1.014; Range: 1.002-1.035; Status: F Test: PROTEIN, URINE AUTO; Value: NEGATIVE; Range: NEGATIVE; Units: mg/dL; Status: F Test: GLUCOSE, URINE (UA) AUTO; Value: NEGATIVE; Range: NEGATIVE; Units: mg/dL; Status: F Test: KETONE, URINE AUTO; Value: NEGATIVE; Range: NEGATIVE; Units: mg/dL; Status: F Test: UROBILINOGEN, URINE AUTO; Value: 0.2; Range: 0.0-2.0; Units: mg/dL; Status: F Test: BILIRUBIN, URINE AUTO; Value: NEGATIVE; Range: NEGATIVE; Status: F Test: NITRITE, URINE AUTO; Value: NEGATIVE; Range: NEGATIVE; Status: F Test: LEUKOCYTE ESTERASE, URINE AUTO; Value: NEGATIVE; Range: NEGATIVE; Status: F Test: BLOOD, URINE BLOOD; Value: 2+; Range: NEGATIVE; Abnormal: Above high normal; Status: F Test: WBC, URINE AUTO; Value: 1; Range: 0-3; Units: /HPF; Status: F Test: RBC, URINE AUTO; Value: 11; Range: 0-3; Abnormal: Above high normal; Units: /HPF; Status: F Test: BACTERIA, URINE AUTO; Value: NEGATIVE; Range: NEGATIVE; Status: F Test: SQUAMOUS EPITHELIAL CELL UR AU; Value: 0; Range: 0-6; Units: /HPF; Status: F Test: MUCUS, URINE; Value: SMALL; Range: NEGATIVE; Status: F Test: HYALINE CAST, URINE AUTO; Value: 0; Range: 0-1; Units: /LPF; Status: F Lab Order: Urine Culture; SPEC'M 07/15/16 22:23 Test: URINE CULTURE; Value: <EXTERNAL COMMENT eCWMed> FULL REPORT IN LAB NOTES (eCW and Medent).; Status: F Test: URINE CULTURE; Value: URINE CULTURE RESULT NO GROWTH; Status: F Radiology Order: CT ABD & PELVIS: IV Contrast Only Test: CT ABD & PELVIS: IV Contrast Only REASON FOR EXAMINATION: Appendicitis; ; CT of the abdomen and pelvis with contrast; Clinical statement: Pain.; Technique: Multiple axial CT images were obtained from the base of the lungs through the floor of the; pelvis utilizing 5 mm axial slices after administration of nonionic intravenous contrast. Coronal an; d sagittal reconstructions were also obtained.; Comparison: 03/09/2012.; Findings:; Chest: The visualized lung bases are clear.; Abdomen: The liver, spleen, pancreas, left kidney, gallbladder, and adrenal glands are unremarkable.; Multiple simple cysts are seen in the right kidney. There is a small duodenal diverticulum. The aorta; demonstrates mild atherosclerotic disease but is within normal limits. There is no evidence of abdom; inal lymphadenopathy or ascites.; Pelvis: The bowel is unremarkable, with no obstructive or inflammatory changes. The appendix is ye; l. The urinary bladder is within normal limits. The other pelvic structures appear grossly intact. Th; ere is no evidence of pelvic lymphadenopathy or ascites.; Bones: There are no suspicious osseous abnormalities seen.; Impression:; 1. No acute obstructive or inflammatory bowel changes. The appendix is normal.; 2. Multiple simple right renal cysts.; ; Outcome: 07/16 00:00 Discharge ordered by Provider. ck7 00:41 Discharge Assessment: Patient awake, alert and oriented x 3. No cognitive and/or cz functional deficits noted. Patient verbalized understanding of disposition instructions. patient administered narcotics - no. The following High Risk Discharge criteria are identified: None. Discharged to home ambulatory, with family. Condition: stable. Discharge instructions given to patient, Instructed on discharge instructions, follow up and referral plans. medication usage, Demonstrated understanding of instructions, medications, Pt was receptive of discharge instructions/ teaching. Prescriptions given X 2. CT Study completed. 00:41 Patient left the ED. cz Signatures: Dispatcher [employer] EDMS Zachariah Giordano, VIDHI RN cz Cristy Mcarthur, Reg Reg gb Cassia Barba,RN RN Erin Chavez,RN RN rs3 Marcos English, RPA-C RPA-Cck7 Lana Trujillo, CUT PLUG PACKER CUT PLUG PACKER Rosemarie Johnson, Reg Reg ks16 Sandy Bartholomew,RN RN cf2 Chart Complete MTDD
== END 2016-07-16 00:41 | disposition home or self-care (01) ==
LOC: M ED 20:49
DX: R10.30 Lower abdominal pain, unspecified (principal); I10 Essential (primary) hypertension; E78.5 Hyperlipidemia, unspecified; K21.9 Gastro-esophageal reflux disease without esophagitis; Z86.718 Personal history of other venous thrombosis and embolism; Z79.899 Other long term (current) drug therapy; Z79.01 Long term (current) use of anticoagulants; Z88.0 Allergy status to penicillin; Z88.6 Allergy status to analgesic agent; F17.210 Nicotine dependence, cigarettes, uncomplicated
CPT/HCPCS: 36415; 74177; 80048; 80076; 81001; 82150; 83690; 85025; 87086; 96361; 96374; 96375; 99284; J2405; Q9967

== ENCOUNTER → 2017-03-22 | Outpatient (REF) | payer OTHER | LOC: M SFHCPLAZ 16:18 | PROVIDERS: ATTEND Family Medicine | DX: E78.5 Hyperlipidemia, unspecified (principal) ==

== ENCOUNTER → 2017-03-30 | Outpatient (REF) | payer OTHER | LOC: M LABDRWAD 12:12 | PROVIDERS: ATTEND Student in an Organized Health Care Education/Training Program | DX: E78.5 Hyperlipidemia, unspecified (principal) ==

== ENCOUNTER → 2017-06-23 | Outpatient (CLI) | payer OTHER | LOC: M RAD 12:31 | DX: Z12.2 Encounter for screening for malignant neoplasm of respiratory organs (principal); R91.8 Other nonspecific abnormal finding of lung field; F17.210 Nicotine dependence, cigarettes, uncomplicated | CPT/HCPCS: G0297 ==

== ENCOUNTER → 2017-06-23 | Outpatient (CLI) | payer OTHER | LOC: M RAD 12:34 | DX: I82.412 Acute embolism and thrombosis of left femoral vein (principal) | CPT/HCPCS: 93970 ==

== ENCOUNTER → 2017-06-24 | Outpatient (REF) | payer OTHER | LOC: M LAB REF 18:31 | DX: C44.311 Basal cell carcinoma of skin of nose (principal) | CPT/HCPCS: 88305 ==

== ENCOUNTER → 2017-08-01 | Outpatient (REF) | payer OTHER ==
[2017-08-01 18:07] LABS: PLATELET COUNT, AUTOMATED 205 10^3/uL (150-450)
[2017-08-01 18:18] LABS: INR 1.22; PROTHROMBIN TIME 15.6 SECONDS (12.4-14.5)
[2017-08-01 18:19] LABS: PARTIAL THROMBOPLASTIN TIME 35.1 SECONDS (26.8-37.9)
== END ==
LOC: M LAB REF 17:06
DX: Z01.812 Encounter for preprocedural laboratory examination (principal)

== ENCOUNTER → 2017-08-15 | Outpatient (CLI) | payer OTHER ==
[~2017-08-15] MED LIST changes: -/AMLO25TA PO; -/PANT40TA PO; -COUM7.5T PO; -IBUPPOW25 PO; +LIDOCAINE 1% MDV 20ML VIAL As Ordered; -PERC5TAB PO; -TYLE325T5 PO
== END ==
LOC: M RADPRO 08:50
DX: R91.8 Other nonspecific abnormal finding of lung field (principal); C34.90 Malignant neoplasm of unspecified part of unspecified bronchus or lung; Z88.8 Allergy status to other drugs, medicaments and biological substances; Z88.0 Allergy status to penicillin; Z79.01 Long term (current) use of anticoagulants; Z79.899 Other long term (current) drug therapy
CPT/HCPCS: 32405

== ENCOUNTER → 2017-08-24 | Outpatient (REF) | payer OTHER ==
[2017-08-24 14:56] LABS: INR 1.28; PROTHROMBIN TIME 16.3 SECONDS (12.4-14.5)
[2017-08-24 14:57] LABS: PARTIAL THROMBOPLASTIN TIME 38.4 SECONDS (26.8-37.9)
== END ==
LOC: M LAB REF 14:36
DX: C34.90 Malignant neoplasm of unspecified part of unspecified bronchus or lung (principal)

== ENCOUNTER → 2017-08-30 | Outpatient (CLI) | payer OTHER | LOC: M PLARAD 08:55 | DX: C34.12 Malignant neoplasm of upper lobe, left bronchus or lung (principal); D43.4 Neoplasm of uncertain behavior of spinal cord; R91.8 Other nonspecific abnormal finding of lung field | CPT/HCPCS: 78815 ==

== ENCOUNTER 2017-09-19 08:41 | Outpatient (RCR) | payer OTHER | END 2017-10-03 | LOC: M ONCR 08:41 | DX: C34.11 Malignant neoplasm of upper lobe, right bronchus or lung (principal) | CPT/HCPCS: 77300 ==

== ENCOUNTER 2017-10-04 09:00 | Outpatient (RCR) | payer OTHER | END 2017-11-03 | LOC: M ONCR 09:00 | DX: C34.11 Malignant neoplasm of upper lobe, right bronchus or lung (principal) | CPT/HCPCS: 77336 ==

== ENCOUNTER → 2017-10-11 | Outpatient (REF) | payer OTHER ==
[2017-10-11 14:20] LABS: FREE T4 1.14 NG/DL (0.76-1.46); THYROID STIMULATING HORMONE 0.659 uIU/ML (0.358-3.740)
== END ==
LOC: M LAB REF 13:28
DX: Z79.899 Other long term (current) drug therapy (principal); C34.90 Malignant neoplasm of unspecified part of unspecified bronchus or lung

== ENCOUNTER → 2017-11-08 | Outpatient (REF) | payer OTHER ==
[2017-11-08 16:27] LABS: FREE T4 1.11 NG/DL (0.76-1.46); THYROID STIMULATING HORMONE 0.212 uIU/ML (0.358-3.740)
== END ==
LOC: M LAB REF 15:27
DX: Z79.899 Other long term (current) drug therapy (principal); C34.12 Malignant neoplasm of upper lobe, left bronchus or lung; C79.51 Secondary malignant neoplasm of bone
CPT/HCPCS: 84443

== ENCOUNTER → 2017-11-10 | Outpatient (CLI) | payer OTHER ==
[~2017-11-10] MED LIST changes: +GASTROGRAFIN SOLUTION 30ML (Q9963) As Ordered; +ISOVUE-370 76% 100ML VIAL (Q9967) As Ordered; -LIDOCAINE 1% MDV 20ML VIAL As Ordered
== END ==
LOC: M RAD 14:14
DX: C34.90 Malignant neoplasm of unspecified part of unspecified bronchus or lung (principal)
CPT/HCPCS: Q9963

== ENCOUNTER → 2017-11-29 | Outpatient (REF) | payer OTHER ==
[2017-11-29 20:04] LABS: FREE T4 1.06 NG/DL (0.76-1.46)
== END ==
LOC: M LAB REF 17:19
DX: Z79.899 Other long term (current) drug therapy (principal); C34.12 Malignant neoplasm of upper lobe, left bronchus or lung; C79.51 Secondary malignant neoplasm of bone

== ENCOUNTER → 2017-11-30 | Outpatient (CLI) | payer OTHER | LOC: M ONCR 14:40 | DX: C34.11 Malignant neoplasm of upper lobe, right bronchus or lung (principal) | CPT/HCPCS: 99211 ==

== ENCOUNTER → 2018-01-10 | Outpatient (REF) | payer OTHER ==
[2018-01-10 19:37] LABS: FREE T4 0.78 NG/DL (0.76-1.46); THYROID STIMULATING HORMONE 0.556 uIU/ML (0.358-3.740)
== END ==
LOC: M LAB REF 17:01
DX: Z79.899 Other long term (current) drug therapy (principal)

== ENCOUNTER 2018-02-17 13:40 | Emergency (ER) | payer OTHER ==
[2018-02-17 14:57] LABS: BASO # 0.1 10^3/uL (0.0-0.2); EOS # 0.3 10^3/uL (0.0-0.50); EOS % 5.2 % (0.0-3.0); HEMATOCRIT 40.8 % (42.0-52.0); HEMOGLOBIN 14.2 g/dl (13.5-17.5); IMMATURE GRANULOCYTE % 0.3 % (0-3.0); LYMPH # 1.5 10^3/uL (1.5-4.5); MEAN CORPUSCULAR HEMOGLOBIN 32.7 pg (27.0-33.0); MEAN CORPUSCULAR HGB CONC 34.8 g/dl (32.0-36.5); MONO # 0.6 10^3/uL (0.0-0.8); MONO % 9.6 % (0.0-5.0); NEUTROPHILS # 3.6 10^3/uL (1.8-7.7); NEUTROPHILS % 58.9 % (36.0-66.0); PLATELET COUNT, AUTOMATED 192 10^3/uL (150-450); RED BLOOD COUNT 4.34 10^6/uL (4.30-6.10); RED CELL DISTRIBUTION WIDTH 12.7 % (11.5-14.5); WHITE BLOOD COUNT 6.2 10^3/uL (4.0-10.0)
[2018-02-17 15:08] LABS: PROTHROMBIN TIME 20.3 SECONDS (12.1-14.4)
[2018-02-17] MEDS: ONDANSETRON 4MG/2ML VIAL (J2405) IV (15:08)
[2018-02-17] MEDS: NS 1,000 ML IV (15:08)
[2018-02-17 15:18] LABS: LACTIC ACID SEPSIS PROTOCOL 0.9 MMOL/L (0.4-2.0)
[2018-02-17 15:56] LABS: ALBUMIN 3.8 GM/DL (3.2-5.2); ALBUMIN/GLOBULIN RATIO 1.31 (1.00-1.93); ALKALINE PHOSPHATASE 73 U/L (45-117); ALT/SGPT 37 U/L (12-78); AMYLASE 19 U/L (25-115); ANION GAP 8 MEQ/L (8-16); AST/SGOT 33 U/L (7-37); BILIRUBIN,DIRECT 0.3 MG/DL (0.0-0.2); BILIRUBIN,TOTAL 0.9 MG/DL (0.2-1.0); BLOOD UREA NITROGEN 16 MG/DL (7-18); CARBON DIOXIDE LEVEL 22 MEQ/L (21-32); CHLORIDE LEVEL 104 MEQ/L (98-107); CPK CREATINE PHOSPHOKINASE 542 U/L (39-308); GLOMERULAR FILTRATION RATE > 60.0 (>56); GLUCOSE, FASTING 93 MG/DL (70-100); LIPASE 137 U/L (73-393); POTASSIUM SERUM 3.8 MEQ/L (3.5-5.1); SODIUM LEVEL 134 MEQ/L (136-145); TOTAL PROTEIN 6.7 GM/DL (6.4-8.2); TROPONIN I < 0.02 NG/ML (< 0.10)
[2018-02-17] MEDS ORDERED: ISOVUE-370 76% 100ML VIAL (Q9967) As Ordered (16:00)
[2018-02-17 17:28] LABS: KETONE, URINE AUTO RFX 1+ mg/dL (NEGATIVE); LEUKOCYTE ESTERASE UR AUTO RFX NEGATIVE (NEGATIVE); MUCUS, URINE RFX SMALL (NEGATIVE); NITRITE, URINE AUTO RFX NEGATIVE (NEGATIVE); RBC, URINE AUTO RFX 2 /HPF (0-3); SPECIFIC GRAVITY UR AUTO RFX 1.035 (1.002-1.035); SQUAM EPITHELIAL CELL UR AURFX 0 /HPF (0-6); WBC, URINE AUTO RFX 1 /HPF (0-3)
== END 2018-02-17 18:31 | disposition home or self-care (01) ==
LOC: M ED 13:40
DX: K52.9 Noninfective gastroenteritis and colitis, unspecified (principal); I10 Essential (primary) hypertension; E78.5 Hyperlipidemia, unspecified; C34.92 Malignant neoplasm of unspecified part of left bronchus or lung; Z86.718 Personal history of other venous thrombosis and embolism; F17.200 Nicotine dependence, unspecified, uncomplicated; Z82.49 Family history of ischemic heart disease and other diseases of the circulatory system; Z88.0 Allergy status to penicillin; Z88.6 Allergy status to analgesic agent
CPT/HCPCS: J2405

== ENCOUNTER → 2018-02-21 | Outpatient (REF) | payer OTHER ==
[2018-02-21 19:19] LABS: FREE T4 0.89 NG/DL (0.76-1.46)
== END ==
LOC: M LAB REF 17:28
DX: Z51.81 Encounter for therapeutic drug level monitoring (principal); Z79.899 Other long term (current) drug therapy; C34.12 Malignant neoplasm of upper lobe, left bronchus or lung; C79.51 Secondary malignant neoplasm of bone
CPT/HCPCS: 84443

== ENCOUNTER 2018-02-27 09:38 | Observation (INO) | payer OTHER ==
[2018-02-27] MEDS: NS 1,000 ML IV ×3 (10:45→16:21)
[2018-02-27] MEDS: ONDANSETRON 4MG/2ML VIAL (J2405) IV ×2 (10:45→14:00)
[2018-02-27 10:49] LABS: BASO # 0.1 10^3/uL (0.0-0.2); BASO % 1.2 % (0.0-1.0); EOS # 0.6 10^3/uL (0.0-0.50); EOS % 8.8 % (0.0-3.0); HEMATOCRIT 43.1 % (42.0-52.0); IMMATURE GRANULOCYTE % 0.3 % (0-3.0); LYMPH # 1.8 10^3/uL (1.5-4.5); LYMPH % 27.1 % (24.0-44.0); MEAN CORPUSCULAR HEMOGLOBIN 32.8 pg (27.0-33.0); MEAN CORPUSCULAR HGB CONC 34.8 g/dl (32.0-36.5); MEAN CORPUSCULAR VOLUME 94.1 fl (80.0-96.0); MONO # 0.6 10^3/uL (0.0-0.8); NEUTROPHILS # 3.5 10^3/uL (1.8-7.7); NEUTROPHILS % 53.6 % (36.0-66.0); PLATELET COUNT, AUTOMATED 254 10^3/uL (150-450); RED BLOOD COUNT 4.58 10^6/uL (4.30-6.10); RED CELL DISTRIBUTION WIDTH 12.8 % (11.5-14.5); WHITE BLOOD COUNT 6.6 10^3/uL (4.0-10.0)
[2018-02-27 10:56] LABS: INR 1.55; PARTIAL THROMBOPLASTIN TIME 39.8 SECONDS (25.4-37.6); PROTHROMBIN TIME 18.8 SECONDS (12.1-14.4)
[2018-02-27 11:01] LABS: LACTIC ACID SEPSIS PROTOCOL 1.3 MMOL/L (0.4-2.0)
[2018-02-27 11:03] LABS: ALBUMIN 3.6 GM/DL (3.2-5.2); ALBUMIN/GLOBULIN RATIO 0.97 (1.00-1.93); ALKALINE PHOSPHATASE 77 U/L (45-117); ALT/SGPT 39 U/L (12-78); ANION GAP 9 MEQ/L (8-16); AST/SGOT 34 U/L (7-37); BILIRUBIN,DIRECT 0.2 MG/DL (0.0-0.2); BILIRUBIN,TOTAL 0.7 MG/DL (0.2-1.0); BLOOD UREA NITROGEN 10 MG/DL (7-18); CALCIUM LEVEL 8.3 MG/DL (8.5-10.1); CARBON DIOXIDE LEVEL 24 MEQ/L (21-32); CHLORIDE LEVEL 105 MEQ/L (98-107); CPK CREATINE PHOSPHOKINASE 290 U/L (39-308); CREATININE FOR GFR 0.72 MG/DL (0.70-1.30); GLOMERULAR FILTRATION RATE > 60.0 (>56); GLUCOSE, FASTING 88 MG/DL (70-100); LIPASE 121 U/L (73-393); MB/CK RELATIVE INDEX 0.38 (< OR =4); POTASSIUM SERUM 3.6 MEQ/L (3.5-5.1); SODIUM LEVEL 138 MEQ/L (136-145); TOTAL PROTEIN 7.3 GM/DL (6.4-8.2); TROPONIN I < 0.02 NG/ML (< 0.10)
[2018-02-27] MEDS ORDERED: ISOVUE-370 76% 100ML VIAL (Q9967) As Ordered (12:05)
[2018-02-27] MEDS ORDERED: ACETAMINOPHEN TAB 650MG DOSE (2X325MG) PO (14:45)
[2018-02-27] MEDS ORDERED: ONDANSETRON 4MG/2ML VIAL (J2405) IV (14:45)
[2018-02-27] MEDS: PANTOPRAZOLE 40MG INJ (PROTONIX) (C9113) IV (16:21)
[2018-02-27] MEDS: metroNIDAZOLE 500 MG in APPROPRIATE DILUENT 1 EA IV (16:21)
[2018-02-27] MEDS: predniSONE 20 MG TAB PO (18:02)
[2018-02-28] MEDS: metroNIDAZOLE 500 MG in APPROPRIATE DILUENT 1 EA IV ×2 (00:12→08:53)
[2018-02-28] MEDS: NS 1,000 ML IV (06:19)
[2018-02-28 06:37] LABS: HEMATOCRIT 37.3 % (42.0-52.0); HEMOGLOBIN 13.1 g/dl (13.5-17.5); MEAN CORPUSCULAR HEMOGLOBIN 32.7 pg (27.0-33.0); MEAN CORPUSCULAR HGB CONC 35.1 g/dl (32.0-36.5); PLATELET COUNT, AUTOMATED 227 10^3/uL (150-450); RED BLOOD COUNT 4.01 10^6/uL (4.30-6.10); RED CELL DISTRIBUTION WIDTH 12.4 % (11.5-14.5)
[2018-02-28 07:03] LABS: ANION GAP 9 MEQ/L (8-16); BLOOD UREA NITROGEN 7 MG/DL (7-18); CALCIUM LEVEL 7.8 MG/DL (8.5-10.1); CARBON DIOXIDE LEVEL 21 MEQ/L (21-32); CHLORIDE LEVEL 110 MEQ/L (98-107); CREATININE FOR GFR 0.61 MG/DL (0.70-1.30); GLOMERULAR FILTRATION RATE > 60.0 (>56); GLUCOSE, FASTING 122 MG/DL (70-100); POTASSIUM SERUM 3.8 MEQ/L (3.5-5.1); SODIUM LEVEL 140 MEQ/L (136-145)
[2018-02-28] MEDS: PANTOPRAZOLE 40MG INJ (PROTONIX) (C9113) IV (08:53)
[2018-02-28] MEDS: predniSONE 20 MG TAB PO (08:53)
== END 2018-02-28 10:35 | disposition home or self-care (01) ==
LOC: M ED 09:38 → M ED INP 14:40 → M MSPAV 21:29
DX: A07.1 Giardiasis [lambliasis] (principal); R42 Dizziness and giddiness; E86.0 Dehydration; J70.0 Acute pulmonary manifestations due to radiation; C34.92 Malignant neoplasm of unspecified part of left bronchus or lung; C79.51 Secondary malignant neoplasm of bone; Z86.73 Personal history of transient ischemic attack (TIA), and cerebral infarction without residual deficits; Z79.02 Long term (current) use of antithrombotics/antiplatelets; Z79.899 Other long term (current) drug therapy; Z88.0 Allergy status to penicillin; Z88.8 Allergy status to other drugs, medicaments and biological substances; F17.210 Nicotine dependence, cigarettes, uncomplicated
CPT/HCPCS: C9113

== ENCOUNTER → 2018-03-08 | Outpatient (REF) | payer OTHER ==
[2018-03-08 11:04] LABS: BASO # 0.1 10^3/uL (0.0-0.2); BASO % 1.1 % (0.0-1.0); EOS # 0.9 10^3/uL (0.0-0.50); EOS % 9.4 % (0.0-3.0); HEMATOCRIT 43.2 % (42.0-52.0); IMMATURE GRANULOCYTE % 0.4 % (0-3.0); LYMPH # 2.4 10^3/uL (1.5-4.5); LYMPH % 25.1 % (24.0-44.0); MEAN CORPUSCULAR HEMOGLOBIN 32.6 pg (27.0-33.0); MEAN CORPUSCULAR HGB CONC 34.7 g/dl (32.0-36.5); MEAN CORPUSCULAR VOLUME 93.9 fl (80.0-96.0); MONO # 1.1 10^3/uL (0.0-0.8); MONO % 11.2 % (0.0-5.0); NEUTROPHILS % 52.8 % (36.0-66.0); PLATELET COUNT, AUTOMATED 281 10^3/uL (150-450); RED CELL DISTRIBUTION WIDTH 12.8 % (11.5-14.5); WHITE BLOOD COUNT 9.4 10^3/uL (4.0-10.0)
== END ==
LOC: M SFHCPLAZ 09:23
DX: A07.1 Giardiasis [lambliasis] (principal)

== ENCOUNTER 2018-03-10 18:08 | Inpatient (IN) | payer OTHER ==
[2018-03-10 19:52] LABS: BASO # 0.1 10^3/uL (0.0-0.2); BASO % 0.9 % (0.0-1.0); EOS # 0.7 10^3/uL (0.0-0.50); EOS % 9.4 % (0.0-3.0); HEMATOCRIT 43.1 % (42.0-52.0); HEMOGLOBIN 14.9 g/dl (13.5-17.5); IMMATURE GRANULOCYTE % 0.3 % (0-3.0); LYMPH # 1.7 10^3/uL (1.5-4.5); LYMPH % 23.2 % (24.0-44.0); MEAN CORPUSCULAR HEMOGLOBIN 32.5 pg (27.0-33.0); MEAN CORPUSCULAR HGB CONC 34.6 g/dl (32.0-36.5); MEAN CORPUSCULAR VOLUME 93.9 fl (80.0-96.0); MONO # 0.7 10^3/uL (0.0-0.8); NEUTROPHILS # 4.2 10^3/uL (1.8-7.7); NEUTROPHILS % 56.2 % (36.0-66.0); PLATELET COUNT, AUTOMATED 218 10^3/uL (150-450); RED BLOOD COUNT 4.59 10^6/uL (4.30-6.10); RED CELL DISTRIBUTION WIDTH 12.7 % (11.5-14.5); WHITE BLOOD COUNT 7.4 10^3/uL (4.0-10.0)
[2018-03-10] MEDS: NS 500 ML IV ×2 (20:05→21:53)
[2018-03-10 20:41] LABS: ALBUMIN 3.5 GM/DL (3.2-5.2); ALBUMIN/GLOBULIN RATIO 1.25 (1.00-1.93); ALKALINE PHOSPHATASE 51 U/L (45-117); ALT/SGPT 30 U/L (12-78); ANION GAP 12 MEQ/L (8-16); AST/SGOT 28 U/L (7-37); BILIRUBIN,DIRECT 0.2 MG/DL (0.0-0.2); BILIRUBIN,TOTAL 0.7 MG/DL (0.2-1.0); BLOOD UREA NITROGEN 31 MG/DL (7-18); CALCIUM LEVEL 7.8 MG/DL (8.5-10.1); CARBON DIOXIDE LEVEL 24 MEQ/L (21-32); CHLORIDE LEVEL 100 MEQ/L (98-107); CREATININE FOR GFR 0.91 MG/DL (0.70-1.30); GLOMERULAR FILTRATION RATE > 60.0 (>56); GLUCOSE, FASTING 87 MG/DL (70-100); LIPASE 132 U/L (73-393); POTASSIUM SERUM 3.9 MEQ/L (3.5-5.1); SODIUM LEVEL 136 MEQ/L (136-145); TOTAL PROTEIN 6.3 GM/DL (6.4-8.2)
[2018-03-10] MEDS ORDERED: ONDANSETRON 4MG/2ML VIAL (J2405) IV (22:30)
[2018-03-11] MEDS: NS 1,000 ML IV ×4 (00:10→17:19)
[2018-03-11] MEDS: NYSTATIN 500,000 U/5 ML SUSP UDC PO ×5 (01:33→20:15)
[2018-03-11] MEDS: RIVAROXABAN 20 MG TAB (XARELTO) PO ×2 (01:33→20:15)
[2018-03-11] MEDS: PANTOPRAZOLE 40MG INJ (PROTONIX) (C9113) IV ×2 (01:34→20:15)
[2018-03-11 04:34] LABS: APPEARANCE, URINE CLEAR (CLEAR); BACTERIA, URINE AUTO NEGATIVE (NEGATIVE); BILIRUBIN, URINE AUTO NEGATIVE (NEGATIVE); BLOOD, URINE BLOOD 1+ (NEGATIVE); COLOR, URINE YELLOW (YELLOW); GLUCOSE, URINE (UA) AUTO NEGATIVE (NEGATIVE); KETONE, URINE AUTO 2+ mg/dL (NEGATIVE); LEUKOCYTE ESTERASE, URINE AUTO TRACE (NEGATIVE); NITRITE, URINE AUTO NEGATIVE (NEGATIVE); PROTEIN, URINE AUTO 1+ mg/dL (NEGATIVE); RBC, URINE AUTO 4 /HPF (0-3); SPECIFIC GRAVITY URINE AUTO 1.014 (1.002-1.035); SQUAMOUS EPITHELIAL CELL UR AU 0 /HPF (0-6); UROBILINOGEN, URINE AUTO 0.2 mg/dL (0.0-2.0); WBC, URINE AUTO 2 /HPF (0-3)
[2018-03-11 10:19] LABS: HEMATOCRIT 36.8 % (42.0-52.0); MEAN CORPUSCULAR HEMOGLOBIN 32.3 pg (27.0-33.0); MEAN CORPUSCULAR VOLUME 95.1 fl (80.0-96.0); PLATELET COUNT, AUTOMATED 194 10^3/uL (150-450); RED BLOOD COUNT 3.87 10^6/uL (4.30-6.10); RED CELL DISTRIBUTION WIDTH 12.8 % (11.5-14.5); WHITE BLOOD COUNT 5.7 10^3/uL (4.0-10.0)
[2018-03-11 10:26] LABS: HEMOGLOBIN 12.5 g/dl (13.5-17.5)
[2018-03-11 10:49] LABS: ANION GAP 9 MEQ/L (8-16); BLOOD UREA NITROGEN 17 MG/DL (7-18); CALCIUM LEVEL 7.2 MG/DL (8.5-10.1); CARBON DIOXIDE LEVEL 24 MEQ/L (21-32); CHLORIDE LEVEL 106 MEQ/L (98-107); GLOMERULAR FILTRATION RATE > 60.0 (>56); GLUCOSE, FASTING 97 MG/DL (70-100); POTASSIUM SERUM 3.6 MEQ/L (3.5-5.1); SODIUM LEVEL 139 MEQ/L (136-145)
[2018-03-11] MEDS: ACETAMINOPHEN TAB 650MG DOSE (2X325MG) PO (21:52)
[2018-03-11 23:21] LABS: ALBUMIN 2.6 GM/DL (3.2-5.2); ALBUMIN/GLOBULIN RATIO 1.08 (1.00-1.93); ALKALINE PHOSPHATASE 42 U/L (45-117); ALT/SGPT 25 U/L (12-78); ANION GAP 9 MEQ/L (8-16); AST/SGOT 26 U/L (7-37); BILIRUBIN,TOTAL 0.3 MG/DL (0.2-1.0); BLOOD UREA NITROGEN 11 MG/DL (7-18); CALCIUM LEVEL 7.5 MG/DL (8.5-10.1); CARBON DIOXIDE LEVEL 23 MEQ/L (21-32); CHLORIDE LEVEL 109 MEQ/L (98-107); CREATININE FOR GFR 0.64 MG/DL (0.70-1.30); GLOMERULAR FILTRATION RATE > 60.0 (>56); GLUCOSE, FASTING 123 MG/DL (70-100); POTASSIUM SERUM 3.6 MEQ/L (3.5-5.1); SODIUM LEVEL 141 MEQ/L (136-145)
[2018-03-12] MEDS: NS 1,000 ML IV (05:04)
[2018-03-12 05:59] LABS: HEMATOCRIT 34.8 % (42.0-52.0); HEMOGLOBIN 12.3 g/dl (13.5-17.5); MEAN CORPUSCULAR HGB CONC 35.3 g/dl (32.0-36.5); MEAN CORPUSCULAR VOLUME 93.3 fl (80.0-96.0); PLATELET COUNT, AUTOMATED 182 10^3/uL (150-450); RED BLOOD COUNT 3.73 10^6/uL (4.30-6.10); RED CELL DISTRIBUTION WIDTH 12.7 % (11.5-14.5); WHITE BLOOD COUNT 4.9 10^3/uL (4.0-10.0)
[2018-03-12 06:26] LABS: ANION GAP 6 MEQ/L (8-16); BLOOD UREA NITROGEN 9 MG/DL (7-18); CALCIUM LEVEL 7.5 MG/DL (8.5-10.1); CARBON DIOXIDE LEVEL 25 MEQ/L (21-32); CHLORIDE LEVEL 110 MEQ/L (98-107); CREATININE FOR GFR 0.57 MG/DL (0.70-1.30); GLOMERULAR FILTRATION RATE > 60.0 (>56); GLUCOSE, FASTING 100 MG/DL (70-100); POTASSIUM SERUM 3.7 MEQ/L (3.5-5.1); SODIUM LEVEL 141 MEQ/L (136-145)
[2018-03-13 10:55] LABS: CORTISOL BASELINE 1.6 UG/DL (4.3-22.4)
== END 2018-03-12 09:49 | disposition home or self-care (01) | DRG 861 ==
LOC: M MSPAV 03-11 00:48 → M ED 18:08 → M ED INP 22:29
DX: R53.81 Other malaise (principal); B37.0 Candidal stomatitis; C79.51 Secondary malignant neoplasm of bone; C78.2 Secondary malignant neoplasm of pleura; C34.92 Malignant neoplasm of unspecified part of left bronchus or lung; F17.210 Nicotine dependence, cigarettes, uncomplicated; I10 Essential (primary) hypertension; K21.9 Gastro-esophageal reflux disease without esophagitis; Z66 Do not resuscitate; Z79.01 Long term (current) use of anticoagulants; Z88.0 Allergy status to penicillin; Z88.6 Allergy status to analgesic agent; Z86.718 Personal history of other venous thrombosis and embolism; Z92.3 Personal history of irradiation; Z92.21 Personal history of antineoplastic chemotherapy; R53.1 Weakness

== ENCOUNTER → 2018-03-22 | Outpatient (CLI) | payer OTHER ==
[2018-03-22 10:11] LABS: CORTISOL AM < 0.5 UG/DL (4.3-22.4)
== END ==
LOC: M LAB 06:04
DX: Z51.81 Encounter for therapeutic drug level monitoring (principal); Z79.899 Other long term (current) drug therapy
CPT/HCPCS: 82533

== ENCOUNTER → 2018-04-03 | Outpatient (CLI) | payer OTHER ==
[2018-04-06 00:06] LABS: ADRENOCORTICOTROPHIC HORMONE < 1.1 pg/mL (7.2-63.3)
== END ==
LOC: M LAB 15:56
DX: E27.49 Other adrenocortical insufficiency (principal)
CPT/HCPCS: 82024

== ENCOUNTER → 2018-06-12 | Outpatient (CLI) | payer OTHER ==
[~2018-06-12] MED LIST changes: +/AMLO25TA PO; +/PANT40TA PO; +AMLO10TA5 PO; +ATOR80TA59 PO; +COUM7.5T PO; +FLAG500T PO; +FOLI1TAB11 PO; -GASTROGRAFIN SOLUTION 30ML (Q9963) As Ordered; +GASTROGRAFIN SOLUTION 30ML (Q9963) As Ordered ONE; +HYDR2.5C54 TOP; +IBUP1TAB7 PO; +IBUPPOW25 PO; -ISOVUE-370 76% 100ML VIAL (Q9967) As Ordered; +ISOVUE-370 76% 100ML VIAL (Q9967) As Ordered ONE; +KEYT1INJ IV; +LISI40TA PO; +NORCOTAB PO; +PANT40TA3 PO; +PERC5TAB PO; +PRED5PAK PO; +TYLE325T5 PO; +XARE20TA PO; +XGEVINJ SC; +ZOFR4TAB14 SL
--- NOTE | 2018-06-14 08:07 | REP ---
Clinical: History of lung cancer for follow up. Technique: Axial contrast enhanced images from the thoracic inlet to the upper abdomen with coronal and sagittal re-formations using 100 ml Isovue 370 intravenous contrast material. Comparison: 02/27/2018. Findings: Chronic emphysematous changes with scattered scarring and interstitial disease as well as few scattered nodules remains stable. Small areas of opacity intermingled with chronic post radiation type changes along the anterior left upper lung zone has improved / decreased. No new acute consolidation, significant nodule or mass lesion appreciated. No effusion. No pneumothorax. Tracheobronchial tree is patent. No obvious axillary, hilar, or mediastinal adenopathy. Mediastinum demonstrates stable thoracic aorta, pulmonary vasculature and heart/pericardium. No evidence for aortic aneurysm/dissection, cardiomegaly or pericardial effusion. Atherosclerotic changes to the coronary arteries again identified. Surrounding musculoskeletal structures including nonacute left rib fractures are unchanged. Limited evaluation of the upper abdomen again demonstrates renal hypodensities (right greater than left) which may reflect cysts and/or hydronephrosis. Normal bilateral adrenal glands identified. 2.5 cm cyst in the lateral left hepatic lobe remains stable. Impression: 1. Chronic changes as described above including postradiation scarring along the anterior subpleural left upper lung zone. Small areas of opacity intermingled with the post radiation type changes are again noted but decreased compared to prior examination. 2. No new acute mediastinal or pleuroparenchymal process appreciated. Electronically Signed by Clay Gómez MD 06/14/2018 07:59 A
--- NOTE | 2018-06-14 08:11 | REP ---
Clinical: Lung cancer for follow up. Technique: Axial contrast enhanced images through the abdomen with coronal and sagittal re-formations as well as delayed images of the abdomen. Comparison: 02/27/2018. Findings: Lung bases demonstrate stable changes. Visualized heart and pericardium normal. Liver includes stable 2.5 cm hepatic cyst in the lateral segment left lobe. Spleen, pancreas, gallbladder, and bilateral adrenal glands are normal. Kidneys demonstrate stable bilateral cysts (right greater than left) including right peripelvic cyst measuring approximately 6.5 cm diameter. No obvious ascites. No free air. No adenopathy. Atherosclerotic changes of the aorta noted without aneurysm or dissection. Musculoskeletal structures without focal osseous abnormality identified. Impression: 1. Stable hepatic and renal cysts. 2. No acute abdominal pathology otherwise appreciated. Electronically Signed by Clay Gómez MD 06/14/2018 08:03 A
== END ==
LOC: M RAD 10:52
PROVIDERS: ATTEND Internal Medicine Medical Oncology
DX: C34.90 Malignant neoplasm of unspecified part of unspecified bronchus or lung (principal)
CPT/HCPCS: 71260; 74160; Q9963; Q9967

== ENCOUNTER 2018-06-29 08:00 | Day surgery (SDC) | payer OTHER ==
[~2018-06-29] VITALS: Ht 177.8 cm; Wt 79.8 kg
[~2018-06-29 08:00] MED LIST changes: -GASTROGRAFIN SOLUTION 30ML (Q9963) As Ordered ONE; -ISOVUE-370 76% 100ML VIAL (Q9967) As Ordered ONE; +LIDOCAINE 2% INJ 100 MG/5 ML SDV (FOR ANES.) As Ordered ONE; +PROPOFOL 200 MG/20 ML VIAL As Ordered ONE
[2018-06-29] MEDS ORDERED: NS 1,000 ML IV ONE (08:30)
--- NOTE | 2018-06-29 09:20 | ROOR ---
Patient Name: Domenico Hughes Procedure Date: 06/29/2018 8:54 AM Date of : 1960 Age: 58 Room: [facility] Gender: Male Note Status: Finalized Procedure: Colonoscopy Indications: Surveillance: Piecemeal removal of large sessile adenoma last colonoscopy (< 3 yrs) Providers: Duong JOVEL MD Referring MD: [facility] MANDY Ian [facility] Kian Requesting Provider: Medicines: Monitored Anesthesia Care Complications: No immediate complications. Procedure: Pre-Anesthesia Assessment: - The heart rate, respiratory rate, oxygen saturations, blood pressure, adequacy of pulmonary ventilation, and response to care were monitored throughout the procedure. The Colonoscope was introduced through the anus and advanced to the cecum, identified by appendiceal orifice and ileocecal valve. The colonoscopy was performed without difficulty. The patient tolerated the procedure well. The quality of the bowel preparation was good. Findings: The perianal and digital rectal examinations were normal. A diminutive polyp was found in the splenic flexure. The polyp was sessile. The polyp was removed with a cold snare. Resection and retrieval were complete. Multiple small-mouthed diverticula were found in the sigmoid colon. Small Internal Hemorrhoids. A tattoo was seen in the recto-sigmoid colon. A post-polypectomy scar was found at the tattoo site. There was no evidence of residual polyp tissue. The exam was otherwise without abnormality on direct and retroflexion views. A post polypectomy scar was found at the ileocecal valve. There was no residual polypoid tissue. Impression: - One diminutive polyp at the splenic flexure, removed with a cold snare. Resected and retrieved. - Diverticulosis in the sigmoid colon. - Small Internal Hemorrhoids. - A post polypectomy scar was found at the ileocecal valve. There was no residual polypoid tissue - A post polypectomy tattoo/scar was seen in the recto-sigmoid colon. There was no evidence of residual polyp tissue. - The examination was otherwise normal on direct and retroflexion views. Recommendation: - Repeat colonoscopy in 3 years for surveillance. - (depending on health status) Duong Jovel MD Duong JOVEL MD 06/29/2018 9:19:37 AM This report has been signed electronically. Number of Addenda: 0 Note Initiated On: 06/29/2018 8:54 AM Estimated Blood Loss: Estimated blood loss: none. Estimated blood loss: none.
[2018-06-29 09:47] VITALS: BP 117/69
== END 2018-06-29 10:45 | disposition home or self-care (01) ==
LOC: M OPP 08:00
PROVIDERS: ATTEND Internal Medicine Gastroenterology
DX: Z86.010 Personal history of colon polyps (principal); D12.3 Benign neoplasm of transverse colon; K57.30 Diverticulosis of large intestine without perforation or abscess without bleeding; Z09 Encounter for follow-up examination after completed treatment for conditions other than malignant neoplasm; Z79.899 Other long term (current) drug therapy; F17.210 Nicotine dependence, cigarettes, uncomplicated; Z88.6 Allergy status to analgesic agent; Z88.0 Allergy status to penicillin; Z85.118 Personal history of other malignant neoplasm of bronchus and lung; Z86.718 Personal history of other venous thrombosis and embolism

== ENCOUNTER → 2018-09-25 | Outpatient (CLI) | payer OTHER ==
[~2018-09-25] MED LIST changes: -/AMLO25TA PO; -/PANT40TA PO; +GASTROGRAFIN SOLUTION 30ML (Q9963) As Ordered ONE; +HYDR-3715 PO; +ISOVUE-370 76% 100ML VIAL (Q9967) As Ordered ONE; -LIDOCAINE 2% INJ 100 MG/5 ML SDV (FOR ANES.) As Ordered ONE; -NORCOTAB PO; +NORV2TAB PO; -PROPOFOL 200 MG/20 ML VIAL As Ordered ONE; +PROT1TAB2 PO
--- NOTE | 2018-09-25 17:50 | REP ---
CT chest with IV contrast: History: Restaging left upper lobe adenocarcinoma . Comparison CT study June 12, 2018. CT contrast dose: 100 ml of intravenous Isovue [address] findings: Emphysematous changes are noted in the upper lobes bilaterally. There is focal subpleural or pleuroparenchymal scarring in the left upper lobe anteriorly unchanged from the June 12, 2018 study. No acute infiltrate is noted. There are stable peripheral tiny nodular opacities in the right upper lobe posteriorly. On today's CT study, there is a subtle infiltrate in the superior segment left lower lobe consistent with inflammatory change. There is similar ground-glass opacity densities in the right lower lobe superior segment only less pronounced. There is a 5 mm nodular opacity in the right lower lobe on page 78 of 122 in series 204 today's exam. This appears to be unchanged. In addition, there is a stable carol fissural nodule measuring 9 mm in diameter along the minor fissure on the right also unchanged. There is a stable 5 mm nodule in the right upper lobe on page 49. These nodules are unchanged from comparison CT study June 23, 2017. Impression: Postradiation changes left anterior chest as before. Ground-glass opacities are seen in the superior segments of both lower lobes today which may be inflammatory changes. Otherwise no acute disease. Electronically Signed by Kendall Mireles MD 09/26/2018 08:57 A
--- NOTE | 2018-09-25 17:57 | REP ---
CT abdomen pelvis with IV and oral contrast: History: Restaging left upper lobe carcinoma. Comparison studies are reviewed. The most recent is from June 12, 2018. The most remote is from August 30, 2017. CT contrast dose: 100 ml of intravenous Isovue 370. CT findings: There is a stable cyst in the left lobe of the liver measuring 2.6 cm in greatest diameter. No other focal liver lesion is appreciated. The adrenal glands are normal bilaterally. No pancreatic lesion is seen. A descending duodenal diverticulum containing air is noted. No abnormality is noted in the pancreas. There are parapelvic and cortical cysts affecting the right kidney. The largest of these is a parapelvic cyst measuring 6.7 x 5.9 x 4.7 cm. No hydronephrosis is seen. Small cysts are noted affecting the left kidney. The right renal artery is duplicated. Vascular calcification is noted in a normal caliber aorta. Normal appendix is seen. Small and large intestinal bowel loops are normal in the upper abdomen. No retroperitoneal mass or adenopathy is seen. Seminal vesicles, prostate, and urinary bladder are unremarkable. Impression: Stable hepatic and renal cysts. No active intra-abdominal disease. Electronically Signed by Kendall Mireles MD 09/26/2018 08:57 A
== END ==
LOC: M RAD 13:56
PROVIDERS: ATTEND Nurse Practitioner Family
DX: C34.90 Malignant neoplasm of unspecified part of unspecified bronchus or lung (principal); N28.1 Cyst of kidney, acquired
CPT/HCPCS: 71260; 74177; Q9963; Q9967

== ENCOUNTER → 2018-11-06 | Outpatient (CLI) | payer OTHER ==
[~2018-11-06] MED LIST changes: +B-12100011 SL; -GASTROGRAFIN SOLUTION 30ML (Q9963) As Ordered ONE; -ISOVUE-370 76% 100ML VIAL (Q9967) As Ordered ONE
--- NOTE | 2018-11-06 18:30 | REP ---
WHOLE BODY BONE SCAN: Following the intravenous administration of 21.8 millicuries of technetium 99M MDP, patient's whole body was imaged in the anterior and posterior projections. Additional oblique and lateral views were obtained. Focal increased uptake is seen in the anterior left 2nd, 4th, and 5th ribs at the site of prior chest wall surgery. Focal increased uptake is seen on the distal right humerus which is of uncertain significance. There is focal increased uptake in the left transverse process of T10 at the site of prior increased uptake on PET scan 08/30/2017. No other significant abnormal uptake is seen in the axial appendicular skeleton. Dilated right renal pelvis as seen on prior CT exams. Bladder activity is seen. IMPRESSION: Focal increased uptake in the distal right humerus. Recommend correlation with plain films. There is postsurgical uptake in the anterior left ribs, specifically the left 2nd, 4th and 5th ribs. There is increased uptake in the left transverse process of T10 as seen on prior PET scan 08/30/2017. Electronically Signed by Robson Mancuso MD 11/07/2018 12:28 P
--- NOTE | 2018-11-07 03:15 | REP ---
Clinical: Follow up infiltrates. Technique: PA and lateral. Comparison: 03/10/2018. Findings: Cardiac silhouette is normal. The lung juan demonstrate diffuse chronic interstitial changes. Subtle alveolar infiltrates involving the left mid to lower lung zone cannot be excluded. No effusion. No pneumothorax. Skeletal structures intact. Impression: Chronic interstitial changes. Very subtle superimposed left mid to lower lung zone infiltrates are suspected. Electronically Signed by Clay Gómez MD 11/07/2018 03:07 A
== END ==
LOC: M RAD 07:32
PROVIDERS: ATTEND Nurse Practitioner Family
DX: C34.12 Malignant neoplasm of upper lobe, left bronchus or lung (principal); M89.9 Disorder of bone, unspecified
CPT/HCPCS: 71046; 78306; A9503

== ENCOUNTER → 2018-11-15 | Outpatient (CLI) | payer OTHER ==
[~2018-11-15] MED LIST changes: +ISOVUE-370 76% 100ML VIAL (Q9967) As Ordered ONE
--- NOTE | 2018-11-15 10:37 | REP ---
CT CHEST WITH IV CONTRAST: TECHNIQUE: Axial contrast enhanced images from the thoracic inlet to the upper abdomen using 100 mL Isovue 370 intravenous contrast material with multiplanar reformations. COMPARISON: 09/25/2018 There is stable emphysematous changes bilaterally as well as scattered fibroatelectatic changes. Scattered ill-defined nodular opacities are stable. There is focal parenchymal opacity anteriorly in the left upper lobe representing focal post radiation fibrosis, unchanged. No new abnormal opacities are seen. Mild ground-glass opacities in the superior segments of both lower lobes are improved with very mild residual ground-glass opacity remaining. Stable subcentimeter mediastinal and hilar lymph nodes are noted. The heart is normal in size. There is no pleural or pericardial effusion. Cysts are again seen in the left lobe of the liver and in the right kidney. IMPRESSION: Improvement of mild patchy ground-glass opacities in the superior segment of lower lobes particularly on the left, with very mild residual. Examination is otherwise stable compared to a prior study of 09/25/2108. Electronically Signed by Robson Mancuso MD 11/15/2018 04:49 P
== END ==
LOC: M RAD 09:24
PROVIDERS: ATTEND Nurse Practitioner Family
DX: R91.8 Other nonspecific abnormal finding of lung field (principal)
CPT/HCPCS: 71260; Q9967

== ENCOUNTER → 2018-11-29 | Outpatient (CLI) | payer OTHER ==
[~2018-11-29] MED LIST changes: -ISOVUE-370 76% 100ML VIAL (Q9967) As Ordered ONE; +PROHANCE 279.3MG/ML 15ML VIAL (A9576) As Ordered ONE; +PROHANCE 279.3MG/ML 5ML VIAL (A9576) As Ordered ONE
--- NOTE | 2018-11-29 09:44 | REP ---
MRI thoracic spine without and with intravenous contrast: History: Lung carcinoma with metastasis. Increased uptake at T10. Abnormal bone scan. Comparison bone scan study November 06, 2018. Comparison chest CT study November 15, 2018. Technique: Sagittal and axial T1 and T2-weighted scans are acquired in the usual fashion with and without fat saturation. Sequences include spin echo, turbo spin-echo, and STIR imaging sequences. The contrast enhancement dose is 16 ml of intravenous ProHance MRI findings: There is a 14 mm lesion in the left transverse process at the T10 vertebral body level corresponding with the previous PET CT and bone scan images. This is characterized by increased signal intensity on STIR, decreased signal intensity on T1-weighted scans and some decreased signal intensity on T2-weighted images. There is contrast enhancement. It is compatible with a small metastatic site. No visible bone destruction is seen on recent chest CT in this region. The possibility of a benign but metabolically active lesion is not excluded. No other skeletal metastatic sites are appreciated on MR. There is a small hemangioma in the T10 vertebral body. There is no evidence of cord compression or intraspinal epidural metastasis. Thoracic cord is normal in coarse caliber and signal intensity. There is diffuse mild degenerative disc disease in the thoracic spine. There is a small right paracentral focal disc protrusion at T7-8 indenting the ventral margin of the thecal sac but not compressing the cord. No other thoracic disc herniation is appreciated. No paravertebral soft-tissue mass is appreciated. There are parapelvic cysts suspected at the bottom of the imaging field of view in both kidneys. Impression: Focal lesion in the left transverse process at T10 shows low T1 signal intensity and contrast enhancement consistent with, although not specific for, a skeletal metastatic site. Electronically Signed by Kendall Mireles MD 11/29/2018 09:36 A
--- NOTE | 2018-11-29 11:24 | REP ---
Clinical: Lung cancer with increased area of uptake on nuclear medicine bone scan. Technique: AP and lateral views of the right humerus. Findings: The right humerus appears normal by radiographic evaluation. No focal obvious abnormalities appreciated at the site of increased radiotracer uptake from recent nuclear medicine scan. No acute fracture dislocation. No periosteal reaction. Joint spaces are intact and normal. Impression: No obvious abnormality by radiographic evaluation. Electronically Signed by Clay Gómez MD 11/29/2018 09:25 A
== END ==
LOC: M RAD 08:01
PROVIDERS: ATTEND Nurse Practitioner Family
DX: R93.7 Abnormal findings on diagnostic imaging of other parts of musculoskeletal system (principal); C34.90 Malignant neoplasm of unspecified part of unspecified bronchus or lung
CPT/HCPCS: 72157; 73060; A9576

== ENCOUNTER 2018-12-29 11:07 | Emergency (ER) | payer OTHER ==
[~2018-12-29] VITALS: Ht 182.9 cm; Wt 82.0 kg
[~2018-12-29 11:07] MED LIST changes: -PROHANCE 279.3MG/ML 15ML VIAL (A9576) As Ordered ONE; -PROHANCE 279.3MG/ML 5ML VIAL (A9576) As Ordered ONE
[2018-12-29] MEDS ORDERED: NS 500 ML IV ONE (11:30)
[2018-12-29 11:42] LABS: BASO % 0.6 % (0.0-1.0); EOS # 0.1 10^3/uL (0.0-0.50); EOS % 1.3 % (0.0-3.0); HEMATOCRIT 41.1 % (42.0-52.0); LYMPH # 1.1 10^3/uL (1.5-4.5); LYMPH % 16.9 % (24.0-44.0); MEAN CORPUSCULAR HEMOGLOBIN 31.5 pg (27.0-33.0); MEAN CORPUSCULAR HGB CONC 34.1 g/dl (32.0-36.5); MEAN CORPUSCULAR VOLUME 92.6 fl (80.0-96.0); MONO # 0.3 10^3/uL (0.0-0.8); MONO % 5.5 % (0.0-5.0); NEUTROPHILS # 4.7 10^3/uL (1.8-7.7); NEUTROPHILS % 75.4 % (36.0-66.0); PLATELET COUNT, AUTOMATED 189 10^3/uL (150-450); RED BLOOD COUNT 4.44 10^6/uL (4.30-6.10); WHITE BLOOD COUNT 6.2 10^3/uL (4.0-10.0)
--- NOTE | 2018-12-29 12:00 | REP ---
CHEST, SINGLE VIEW: Single view of the chest is performed. COMPARISON: 11/06/2018 as well as other prior exams. Bibasilar fibroatelectatic changes are again noted. No consolidating infiltrate is seen. The heart is normal in size. Mediastinal silhouette is unchanged. Electronically Signed by Robson Mancuso MD 01/02/2019 05:26 P
[2018-12-29 12:07] LABS: BLOOD UREA NITROGEN 11 MG/DL (7-18); CALCIUM LEVEL 8.6 MG/DL (8.5-10.1); CARBON DIOXIDE LEVEL 25 MEQ/L (21-32); CHLORIDE LEVEL 107 MEQ/L (98-107); CK-MB VALUE MASS 1.5 NG/ML (<3.6); CPK CREATINE PHOSPHOKINASE 171 U/L (39-308); CREATININE FOR GFR 0.76 MG/DL (0.70-1.30); GLOMERULAR FILTRATION RATE > 60.0 (>56); GLUCOSE, FASTING 112 MG/DL (70-100); MB/CK RELATIVE INDEX 0.88 (< OR =4); POTASSIUM SERUM 3.8 MEQ/L (3.5-5.1); SODIUM LEVEL 138 MEQ/L (136-145); TROPONIN I < 0.02 NG/ML (< 0.10)
[2018-12-29] MEDS ORDERED: ISOVUE-370 76% 100ML VIAL (Q9967) As Ordered ONE (12:22)
--- NOTE | 2018-12-29 14:02 | REP ---
REASON FOR EXAM: History of lung carcinoma now having shortness of breath. COMPARISON EXAMINATIONS: 06/12/2018, 09/25/2018, and 11/15/2018, all standard contrast enhanced exams, while today's exam is a CT angio chest to rule out pulmonary embolus. There is excellent visualization of the pulmonary arterial vasculature. There are no focal filling defects present that would be considered consistent with pulmonary emboli. There are no pleural or pericardial effusions. The mediastinum and pulmonary hilar are unchanged. No mass or adenopathy has developed since the last exam. The imaged upper abdomen and imaged osseous structures are unchanged. Evaluation of the lung juan again shows lung field hyperexpansion and emphysematous changes status quo. Scattered parenchymal nodules are again noted status quo. Small pleural blebs and parenchymal bulla are noted with biapical predominance status quo. No new abnormal nodules, masses, or opacities have developed since the last prior exam. Chronic post radiation changes are again seen in the left lung status quo. IMPRESSION: 1. There is no evidence of a pulmonary embolus. 2. There is no evidence of acute disease. There are chronic changes which appear stable as described above. Electronically Signed by Iglesia Hernandez DO 12/29/2018 02:15 P
[2018-12-29 17:11] LABS: CK-MB VALUE MASS 1.5 NG/ML (<3.6); CPK CREATINE PHOSPHOKINASE 166 U/L (39-308); TROPONIN I < 0.02 NG/ML (< 0.10)
[2018-12-29 17:30] VITALS: BP 136/70
--- NOTE | 2018-12-30 09:31 | ECGEPIP ---
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
--- NOTE | 2018-12-30 09:36 | ECGEPIP ---
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
== END 2018-12-29 17:49 | disposition home or self-care (01) ==
LOC: M ED 11:07
DX: C34.90 Malignant neoplasm of unspecified part of unspecified bronchus or lung (principal); C79.51 Secondary malignant neoplasm of bone; I10 Essential (primary) hypertension; E78.5 Hyperlipidemia, unspecified; Z86.718 Personal history of other venous thrombosis and embolism; Z79.899 Other long term (current) drug therapy; Z79.01 Long term (current) use of anticoagulants; Z88.0 Allergy status to penicillin; Z88.8 Allergy status to other drugs, medicaments and biological substances; F17.210 Nicotine dependence, cigarettes, uncomplicated
CPT/HCPCS: 36415; 71045; 71275; 80048; 82550; 82553; 85025; 93005; 93041; 94760; 96360; 96361; 99285; Q9967

== ENCOUNTER → 2019-07-04 | Outpatient (CLI) | payer OTHER ==
[~2019-07-04] MED LIST changes: +FLUC10TA PO; +GASTROGRAFIN SOLUTION 30ML (Q9963) As Ordered ONE; +ISOVUE-370 76% 100ML VIAL (Q9967) As Ordered ONE
--- NOTE | 2019-07-05 05:59 | REP ---
Clinical: Lung cancer. Restaging. Technique: Axial contrast enhanced images from the lung bases to the pubic symphysis using oral (per protocol) and 100 ml Isovue 370 intravenous contrast material with coronal and sagittal re-formations. Delayed images obtained. Comparison: 09/25/2018 Findings: Stable 2 cm hepatic cyst in the left lateral segment and stable bilateral renal cysts again noted. Liver, spleen, pancreas, gallbladder, and bilateral adrenal glands are otherwise normal. The enteric system is without obstruction or acute inflammatory process. Normal terminal ileum and appendix are identified in the right lower quadrant. Few scattered sigmoid diverticula noted without acute diverticulitis. Pelvis demonstrates normal bladder and mildly prominent heterogeneous prostate gland measuring approximately 5.3 cm maximal transverse diameter. No ascites. No free air. No adenopathy. Atherosclerotic changes to the aorta and vasculature noted without aneurysm or dissection. Osseous structures demonstrate age-related changes without focal abnormality. Impression: 1. Stable hepatic and renal cysts. 2. No acute abdominopelvic pathology appreciated. No evidence for metastatic disease. Electronically Signed by Clay Gómez MD 07/05/2019 05:50 A
--- NOTE | 2019-07-06 07:03 | REP ---
Clinical: Lung cancer. Restaging. Technique: Axial contrast enhanced images from the thoracic inlet to the upper abdomen with coronal and sagittal re-formations using 100 ml Isovue 370 intravenous contrast material. Comparison: 11/15/2018. Findings: Enlarged pathologic prevascular mediastinal lymph nodes measure up to 4 cm maximal diameter. The lung juan themselves demonstrate chronic emphysematous changes along with subpleural fibrosis and mild irregular opacities along the anterior left upper lobe which appear essentially unchanged. There is a 6 mm stable density inseparable from the right minor fissure (image 63). No new acute consolidation or pulmonary mass is appreciated. No effusion. No pneumothorax. Thoracic aorta, pulmonary vasculature and heart/pericardium appear relatively normal / stable. Surrounding musculoskeletal structures are intact without focal abnormality. Impression: 1. Enlarged pathologic prevascular mediastinal lymph nodes measure up to 4 cm and represent an obvious change as compared to 12/29/2018. Electronically Signed by Clay Gómez MD 07/06/2019 06:56 A
== END ==
LOC: M RAD 08:07
PROVIDERS: ATTEND Internal Medicine Medical Oncology
DX: R59.0 Localized enlarged lymph nodes (principal); N28.1 Cyst of kidney, acquired; K76.89 Other specified diseases of liver; C34.92 Malignant neoplasm of unspecified part of left bronchus or lung
CPT/HCPCS: 71260; 74177; Q9963; Q9967

== ENCOUNTER → 2019-07-16 | Outpatient (REF) | payer OTHER ==
[~2019-07-16] MED LIST changes: -GASTROGRAFIN SOLUTION 30ML (Q9963) As Ordered ONE; -ISOVUE-370 76% 100ML VIAL (Q9967) As Ordered ONE
== END ==
LOC: M SFHCPLAZ 14:45
PROVIDERS: ATTEND Family Medicine
DX: Z13.1 Encounter for screening for diabetes mellitus (principal)

== ENCOUNTER → 2019-07-31 | Outpatient (CLI) | payer OTHER ==
[~2019-07-31] MED LIST changes: +ONDA8TAB10 PO; +PROC10TA4 PO
--- NOTE | 2019-07-31 17:57 | REP ---
Whole body PET CT scan for restaging lung carcinoma: Comparison is 12/26/2018. Whole-body scanning is performed from skull base to the upper thighs. Neck and supraclavicular areas: There are no hypermetabolic foci. This is unchanged. Chest: On the prior study there was an hypermetabolic focus in the left hilus. This has increased in size and uptake. Standard uptake value today is 14.5, previously it was 6.0. In addition, there are at least two other foci in the left hilus, not present previously with a standard uptake values of 13.1 and 12.1. Additionally, there is a new small focus in the anterior mediastinum with a standard uptake value of 9.4. There are no other foci in the chest. Abdomen, pelvis and upper thighs: There are no hypermetabolic foci. This is unchanged. Specifically there are no adrenal or hepatic foci. Impression: The single hypermetabolic focus identified in the left lung hilus previously has increased in size and uptake. In addition, there are two new foci in the left hilus and a single new focus in the anterior mediastinum. The study is performed with 8.89 mCi of F 18 FDG. Electronically Signed by Robson Chase MD 07/31/2019 05:48 P
== END ==
LOC: M PLARAD 14:02
PROVIDERS: ATTEND Internal Medicine Medical Oncology
DX: C34.12 Malignant neoplasm of upper lobe, left bronchus or lung (principal)
CPT/HCPCS: 78815; A9552

== ENCOUNTER → 2019-08-14 | Outpatient (CLI) | payer OTHER ==
[~2019-08-14] MED LIST changes: +PROHANCE 279.3MG/ML 15ML VIAL (A9576) As Ordered ONE; +PROHANCE 279.3MG/ML 5ML VIAL (A9576) As Ordered ONE
--- NOTE | 2019-08-14 13:18 | REPVR ---
PROCEDURE INFORMATION: Exam: MR Head Without and With Contrast Exam date and time: 08/14/2019 12:53 PM Age: 59 years old Clinical indication: Pain and condition or disease; Primary brain cancer; Headache not specified; Additional info: [facility] eval mets TECHNIQUE: Imaging protocol: MR of the head without and with intravenous contrast. Contrast material: PROHANCE; Contrast volume: 16 ml; Contrast route: 22G; COMPARISON: MRI-Brain without Contrast 02/27/2018 3:37 PM The report from the previous exam was not immediately available. FINDINGS: Brain: No restricted diffusion is seen to suggest acute infarction. There is no acute intracranial hemorrhage, cerebral edema, or midline shift. Numerous small foci of increased T2 and FLAIR signal within the periventricular and subcortical white matter are again noted. This is nonspecific but could represent early chronic microangiopathic ischemic changes, the sequela of migraine headaches, demyelinating disease, prior trauma, vasculitis, or Lyme disease. Clinical correlation is recommended. No enhancing lesions were identified after the administration of contrast. Ventricles: No hydrocephalus. Bones/joints: Unremarkable. Soft tissues: Unremarkable. Sinuses: There is mild mucosal thickening noted within the paranasal sinuses. Mastoid air cells: The mastoid air cells are clear. Orbits: Unremarkable. IMPRESSION: 1. No acute intracranial abnormality. 2. Chronic findings as discussed above. Electronically signed by: Pelon Fonseca On 08/14/2019 13:18:07 PM
== END ==
LOC: M RAD 10:45
PROVIDERS: ATTEND Internal Medicine Medical Oncology
DX: C34.90 Malignant neoplasm of unspecified part of unspecified bronchus or lung (principal)
CPT/HCPCS: 70553; A9576

== ENCOUNTER 2019-08-25 10:49 | Emergency (ER) | payer OTHER ==
[~2019-08-25] VITALS: Ht 182.9 cm; Wt 83.3 kg
[~2019-08-25 10:49] MED LIST changes: -PROHANCE 279.3MG/ML 15ML VIAL (A9576) As Ordered ONE; -PROHANCE 279.3MG/ML 5ML VIAL (A9576) As Ordered ONE
[2019-08-25 11:45] LABS: BASO % 0.5 % (0.0-1.0); EOS % 0.5 % (0.0-3.0); HEMATOCRIT 39.2 % (42.0-52.0); HEMOGLOBIN 13.3 g/dl (13.5-17.5); LYMPH # 0.9 10^3/uL (1.5-5.0); MEAN CORPUSCULAR HEMOGLOBIN 31.4 pg (27.0-33.0); MEAN CORPUSCULAR HGB CONC 33.9 g/dl (32.0-36.5); MEAN CORPUSCULAR VOLUME 92.5 fl (80.0-96.0); MONO # 0.5 10^3/uL (0.0-0.8); NEUTROPHILS # 2.8 10^3/uL (1.5-8.5); NEUTROPHILS % 66.5 % (36.0-66.0); RED BLOOD COUNT 4.24 10^6/uL (4.30-6.10); WHITE BLOOD COUNT 4.2 10^3/uL (4.0-10.0)
[2019-08-25 12:08] LABS: PLATELET COUNT, AUTOMATED 99 10^3/uL (150-450)
[2019-08-25] MEDS ORDERED: KETO2CR TOP (12:24)
[2019-08-25] MEDS ORDERED: KETOCONAZOLE 2% CREAM TOP STA (12:49)
[2019-08-25 13:26] VITALS: BP 140/69
== END 2019-08-25 13:31 | disposition home or self-care (01) ==
LOC: M ED 10:49
DX: B35.6 Tinea cruris (principal); I10 Essential (primary) hypertension; K21.9 Gastro-esophageal reflux disease without esophagitis; C34.90 Malignant neoplasm of unspecified part of unspecified bronchus or lung; C79.51 Secondary malignant neoplasm of bone; K76.0 Fatty (change of) liver, not elsewhere classified; Z87.442 Personal history of urinary calculi; Z85.828 Personal history of other malignant neoplasm of skin; Z87.891 Personal history of nicotine dependence; Z79.02 Long term (current) use of antithrombotics/antiplatelets; Z79.899 Other long term (current) drug therapy; Z88.0 Allergy status to penicillin; Z88.8 Allergy status to other drugs, medicaments and biological substances

== ENCOUNTER 2019-10-01 11:14 | Inpatient (IN) | payer OTHER ==
[~2019-10-01] VITALS: Ht 175.3 cm; Wt 82.0 kg
[~2019-10-01 11:14] MED LIST changes: +KETO2CR TOP
[2019-10-01] MEDS ORDERED: CALC-218 PO (11:37)
[2019-10-01] MEDS ORDERED: NS 1,000 ML IV ONE ×2 (12:00→14:00)
[2019-10-01 12:24] LABS: HEMATOCRIT 38.1 % (42.0-52.0); HEMOGLOBIN 13.3 g/dl (13.5-17.5); MEAN CORPUSCULAR HEMOGLOBIN 32.8 pg (27.0-33.0); MEAN CORPUSCULAR HGB CONC 34.9 g/dl (32.0-36.5); MEAN CORPUSCULAR VOLUME 94.1 fl (80.0-96.0); RED BLOOD COUNT 4.05 10^6/uL (4.30-6.10)
[2019-10-01 12:46] LABS: ALBUMIN 3.6 GM/DL (3.2-5.2); ALT/SGPT 29 U/L (12-78); BILIRUBIN,DIRECT 0.5 MG/DL (0.0-0.2); BILIRUBIN,TOTAL 1.3 MG/DL (0.2-1.0); BLOOD UREA NITROGEN 20 MG/DL (7-18); CALCIUM LEVEL 7.6 MG/DL (8.5-10.1); CARBON DIOXIDE LEVEL 26 MEQ/L (21-32); CHLORIDE LEVEL 98 MEQ/L (98-107); GLOMERULAR FILTRATION RATE > 60.0 (>56); GLUCOSE, FASTING 100 MG/DL (70-100); POTASSIUM SERUM 3.1 MEQ/L (3.5-5.1); SODIUM LEVEL 133 MEQ/L (136-145); TOTAL PROTEIN 6.8 GM/DL (6.4-8.2)
[2019-10-01 12:49] LABS: PLATELET COUNT, AUTOMATED 75 10^3/uL (150-450)
[2019-10-01 13:09] LABS: ATYPICAL LYMPH 5 % (0-5); BASOPHILS 1 % (0-1); EOSINOPHILS 2 % (0-3); LYMPHOCYTES 14 % (16-44); MONOCYTES 3 % (0-5); NEUTROPHILS 74 % (28-66)
[2019-10-01 13:10] LABS: ANISOCYTOSIS 1+; PLATELET ESTIMATE DECREASED (NORMAL)
[2019-10-01] MEDS ORDERED: POTASSIUM CHLORIDE 10 MEQ SR TABLET PO ONE (13:30)
--- NOTE | 2019-10-01 15:40 | REP ---
REASON FOR EXAM: History of carcinoma of the lung with weakness. The technique utilized in obtaining the radiograph has magnified the cardiac silhouette and accentuated the interstitial markings. There has been no significant change from the prior exam. Chronic fibrotic changes, status quo. No acute patchy parenchymal opacities or pleural effusions have developed. The cardiac silhouette is magnified by technique, however, there is no evidence of cardiomegaly. There is no significant change in appearance of the imaged osseous structures. Stable-appearing chronic changes without evidence of acute cardiopulmonary disease. Electronically Signed by Iglesia Hernandez DO 10/01/2019 04:01 P
[2019-10-01] MEDS ORDERED: ISOVUE-370 76% 100ML VIAL As Ordered ONE (16:59)
--- NOTE | 2019-10-01 17:31 | REPVR ---
PROCEDURE INFORMATION: Exam: CT Abdomen And Pelvis With Contrast Exam date and time: 10/01/2019 5:05 PM Age: 59 years old Clinical indication: Abdominal pain; Additional info: Persistent vomiting TECHNIQUE: Imaging protocol: Computed tomography of the abdomen and pelvis with intravenous contrast. Radiation optimization: All CT scans at this facility use at least one of these dose optimization techniques: automated exposure control; mA and/or kV adjustment per patient size (includes targeted exams where dose is matched to clinical indication); or iterative reconstruction. Contrast material: ISO 370; Contrast volume: 100 ml; Contrast route: IV; COMPARISON: CT ABD PELVIS WITH CONTRAST 07/04/2019 9:42 AM FINDINGS: Lungs: Stable small nodules in the lung bases, largest on the right measuring 0.4 cm, to which no further follow-up is necessary (Rabia et al., Fleischner Society, 2017). Liver: 2.3 cm fluid density cyst in the left hepatic lobe. Gallbladder and bile ducts: Unremarkable. No ductal dilation. Pancreas: Unremarkable. No ductal dilation. Spleen: Unremarkable. Adrenals: Unremarkable. Kidneys and ureters: Multiple large fluid density cyst throughout the kidneys, largest parapelvic cyst in the right kidney measuring 5.9 cm, to which no further follow-up is necessary. No hydronephrosis or stones. Stomach and bowel: Stomach is unremarkable. No small bowel obstruction. Large bowel is unremarkable. Appendix: No evidence of appendicitis. Intraperitoneal space: No pneumoperitoneum. No significant fluid collection. Vasculature: Atherosclerotic calcifications of the aorta and major branches. Lymph nodes: No enlarged lymph nodes. Bladder: Unremarkable. Reproductive: Mild enlargement of the prostate gland. Bones/joints: Multilevel mild degenerative changes of the visualized spine. No acute osseous lesion or fracture. Soft tissues: Unremarkable. IMPRESSION: 1. No acute intra-abdominal findings. 2. Other chronic findings, as above. Electronically signed by: Umang Colon On 10/01/2019 17:30:46 PM
[2019-10-01] MEDS ORDERED: ONDA4TAB6 PO (18:47)
[2019-10-01] MEDS ORDERED: METOCLOPRAMIDE INJ 10MG/2ML VIAL (J2765 PER 1) As Ordered ONE (20:11)
[2019-10-01] MEDS ORDERED: METOCLOPRAMIDE INJ 10MG/2ML VIAL (J2765 PER 1) IV ONE (20:15)
[2019-10-01 20:23] LABS: LIPASE 83 U/L (73-393)
[2019-10-01] MEDS ORDERED: B-12100021 PO (20:31)
[2019-10-01] MEDS ORDERED: FOLI1TAB11 PO (20:31)
--- NOTE | 2019-10-01 20:31 | HPEPDOC ---
[facility] Medical History & Physical History and Physical CHIEF COMPLAINT: HISTORY OF PRESENT ILLNESS: PAST MEDICAL HISTORY: 1. . 2. . 3. . PAST SURGICAL HISTORY: 1. . 2. . 3. . SOCIAL HISTORY: Marital status: . Resides in: Children: Employment: Tobacco use: ETOH: Illicit drug use: Tattoos done unprofessionally: . IV drug use: Other relevant social factors: FAMILY HISTORY: Father: Mother: Siblings: Children: Hereditary Diseases: Unexpected deaths due to medical reasons: ALLERGIES: Please see below. REVIEW OF SYSTEMS: CONSTITUTIONAL: . HEENT: . CARDIOVASCULAR: . RESPIRATORY: . GASTROINTESTINAL: . GENITOURINARY: . SKIN: . MUSCULOSKELETAL: . NEUROLOGICAL: . PSYCHIATRIC: . ENDOCRINE: . HEMATOLOGIC/LYMPHATIC: . HOME MEDICATIONS: Please see below. PHYSICAL EXAMINATION: VITAL SIGNS: Temperature , pulse , respiratory rate , blood pressure , pulse oximetry % on room air. GENERAL APPEARANCE: . HEENT: . CARDIOVASCULAR: . LUNGS: . ABDOMEN: . MUSCULOSKELETAL: . EXTREMITIES: . NEUROLOGICAL: . PSYCHIATRIC: . LABORATORY DATA: See below. IMAGING: MICROBIOLOGY: Please see below. ASSESSMENT: . . PLAN: 1. . Vital Signs Vital Signs Date Time Temp Pulse Resp B/P (MAP) Pulse Ox O2 Delivery O2 Flow Rate FiO2 10/01/19 20:15 127 18 135/72 (93) 96 10/01/19 16:31 Room Air 10/01/19 11:31 97.6 Laboratory Data Labs 24H Laboratory Tests 2 10/01/19 12:02: Neutrophils (%) (Auto) , Nucleated Red Blood Cells % (auto) 0.0, Neutrophils 74H, Band Neutrophils 1, Lymphocytes (Manual) 14L, Monocytes (Manual) 3, Eosinophils (Manual) 2, Basophils (Manual) 1, Atypical Lymphocytes 5, Anisocytosis 1+, Platelet Estimate DECREASED, Immature Platelet Fraction 2.6, Anion Gap 9, Glomerular Filtration Rate > 60.0, Lactic Acid Level 1.7, Calcium Level 7.6L, Total Bilirubin 1.3H, Direct Bilirubin 0.5H, Aspartate Amino Transf (AST/SGOT) 24, Alanine Aminotransferase (ALT/SGPT) 29, Alkaline Phosphatase 111, Total Protein 6.8, Albumin 3.6, Albumin/Globulin Ratio 1.13, Lipase 83 10/01/19 15:35: Urine Color YELLOW, Urine Appearance CLEAR, Urine pH 6.0, Urine Specific [place] 1.013, Urine Protein 1+H, Urine Glucose (UA) NEGATIVE, Urine Ketones 1+H, Urine Blood 1+H, Urine Nitrite NEGATIVE, Urine Bilirubin NEGATIVE, Urine Urobilinogen 4.0H, Urine Leukocyte Esterase NEGATIVE, Urine WBC (Auto) 0, Urine RBC (Auto) 9H, Urine Hyaline Casts (Auto) 0, Urine Bacteria (Auto) NEGATIVE, Urine Squamous Epithelial Cells 0, Urine Mucus (Auto) SMALL, Urine Sperm (Auto) CBC/BMP Laboratory Tests 10/01/19 12:02 Microbiology Microbiology 10/01/19 Blood Culture, Received Pending 10/01/19 Blood Culture, Received Pending Home Medications Scheduled Amlodipine Besylate (Amlodipine Besylate) 10 Mg Tab, 10 MG PO DAILY Atorvastatin Calcium (Atorvastatin Calcium) 80 Mg Tab, 80 MG PO QHS Calcium Carb, Citrate/Vit D3 (Calcium + D3 ER Tablet) 1 Each Tablet.er, 2 TAB PO DAILY Cyanocobalamin (Vitamin B-12) (B-12) 1,000 Mcg Tablet, 1,000 MCG PO DAILY Folic Acid (Folic Acid) 1 Mg Tablet, 1 MG PO DAILY Hydrocortisone (Hydrocortisone) 2.5 % Cre, 1 APLCT TOP BID Ketoconazole (Ketoconazole) 15 Gm Cream..g., 1 APLCT TOP DAILY apply to affected area(s) Lisinopril (Lisinopril) 40 Mg Tab, 40 MG PO DAILY Pantoprazole Sodium (Pantoprazole Sodium) 40 Mg Tab, 40 MG PO DAILY Rivaroxaban (Xarelto) 20 Mg Tab, 20 MG PO QHS Scheduled PRN Ondansetron (Ondansetron Odt) 4 Mg Tab.rapdis, 1 TAB PO Q6-8HP PRN for nausea/vomiting Ondansetron HCl (Ondansetron HCl) 8 Mg Tablet, 8 MG PO Q6H PRN for NAUSEA OR VOMITING Prochlorperazine Maleate (Prochlorperazine Maleate) 10 Mg Tablet, 10 MG PO Q8HP PRN for NAUSEA OR VOMITING Miscellaneous Medications Prednisone (Prednisone) 5 Mg Theo, 5 MG PO Allergies Coded Allergies: Penicillins (Verified Allergy, Intermediate, RASH, 10/01/19) aspirin (Verified Allergy, Unknown, 10/01/19) RAIZA BERGERON MD Oct 01, 2019 20:31
[2019-10-01] MEDS ORDERED: KETO2CR TOP (20:33)
[2019-10-01] MEDS ORDERED: HYDR25OI TOP (20:33)
[2019-10-01] MEDS ORDERED: ONDA8TAB10 PO (20:37)
[2019-10-01] MEDS ORDERED: PRED5TA PO (20:37)
[2019-10-01] MEDS ORDERED: PROC10TA4 PO (20:38)
[2019-10-01] MEDS ORDERED: ACETAMINOPHEN TAB 650MG DOSE (2X325MG) PO PRN (21:15)
[2019-10-01] MEDS ORDERED: MOM 30ML SUSPENSION UDC PO PRN (21:15)
[2019-10-01] MEDS ORDERED: KCL 20MEQ in NS 1000ML 1,000 ML IV SCH (21:15)
[2019-10-01] MEDS ORDERED: ONDANSETRON 4MG/2ML VIAL IV PRN (21:15)
[2019-10-01] MEDS ORDERED: METOCLOPRAMIDE INJ 10MG/2ML VIAL (J2765 PER 1) IV PRN (21:15)
--- NOTE | 2019-10-01 21:47 | HPEPDOC ---
[facility] Medical History & Physical Date of Admission Oct 01, 2019 Date of Service: Oct 01, 2019 History and Physical CHIEF COMPLAINT: Persistent vomiting HISTORY OF PRESENT ILLNESS: This is a 59-year-old male with a pertinent past medical history of metastatic adenocarcinoma of the lungs currently on chemotherapy and chronic left lower leg DVT on long-term anticoagulation medication presenting here for persistent vomiting for the last 3 days. He was brought in via EMS. He states he is unable to tolerate anything by mouth including liquids. He describes the vomiting as bilious non-bloody that occurs at random times. He denies food stuck in his throat, nausea, diarrhea, abdominal pain, fevers, chills, night sweats, or worsening weight loss. He endorses he is currently on chemotherapy for his adenocarcinoma of the lungs and his drug regimen was changed a couple months prior for he was having persistent neutropenia. He does endorse his last chemotherapy was 1 week prior and had Pegfilgrastim on 09/27 and noticed the symptoms started right after. He has no other complaints at this time, and did not want to talk anymore during the exam. PAST MEDICAL HISTORY: 1. Metastatic PD-L1 high adenocarcinoma with skeletal involvement on palliative single agent checkpoint inhibitor now with progression 2. Chronic left lower leg DVT on long term care social worker anticoagulation (Xarelto) 3. Basal carcinoma the right nose s/p fully resected 06/2017 4. Adrenal insufficiency on chronic prednisone (5mg daily) 5. Peripheral vascular disease PAST SURGICAL HISTORY: 1. Basal carcinoma the right nose resection HOME MEDICATIONS: Please see below. ALLERGIES: Please see below SOCIAL HISTORY: Lives with: in [place],Employment: Disabled, Tobacco use: Current Smoker 5 ciggs daily. ETOH: Denies, Illicit drug use: Denies, CODE STATUS: [place] of CPR with NO intubation FAMILY HISTORY: Reviewed. Mother: [place], siblings: Brother: cardiac, PVD, DVT Sister: miscarriages, Sister: Aneurysm REVIEW OF SYSTEMS: 10 systems reviewed. Constitutional: Denies fever, chills, night sweats, weight loss HEENT: Denies headache, dysphagia Skin: Denies any rashes or lesions Pulmonary: Denies dyspnea, cough, wheezing Cardiac: Denies chest pain, palpitations, orthopnea, PND, edema, lightheadedness GI: Denies nausea, abdominal pain, diarrhea, constipation, melena, hematochezia. Admits bilious non bloody vomiting, : Denies dysuria, hematuria, retention MSK: Denies new pains or weakness Neurologic: Denies new numbness/tingling PHYSICAL EXAMINATION: VITAL SIGNS: See below GENERAL: Pleasant 59 year old male laying up in bed awake alert oriented speaking in complete sentences no acute distress. HEENT: Atraumatic normocephalic, moist mucous membranes, No JVD CARDIOVASCULAR: S1 S2 regular no additional heart sounds appreciated. RESPIRATORY: Clear to auscultation bilaterally, highly diminished breath sounds in the left side with no dullness to percussion no wheezing rhonchi or rales. ABDOMINAL: Soft abdomen non-tender positive bowel sounds in all 4 quadrants EXTREMITIES: No calf tenderness no lower extremity edema noted. Chronic left lower leg DVT NEUROLOGICAL: No gross focal deficits appreciated PSYCHOLOGICAL: Appropriate LABORATORY DATA: See below. MICROBIOLOGY: Please see below. IMAGIN10/01/2019 CXR There has been no significant change from the prior exam. Chronic fibrotic changes, status quo. No acute patchy parenchymal opacities or pleural effusions have developed. The cardiac silhouette is magnified by technique, however, there is no evidence of cardiomegaly. There is no significant change in appearance of the imaged osseous structures. Stable-appearing chronic changes without evidence of acute cardiopulmonary disease. Gallbladder U/S Official report pending CT abdomen/Pelvis with IV contrast only IMPRESSION: 1. No acute intra-abdominal findings. 2. Other chronic findings, as above. ASSESSMENT & PLAN: This is a This is a 59-year-old male with a pertinent past medical history of metastatic adenocarcinoma of the lungs currently on chemotherapy and chronic left lower leg DVT on long-term anticoagulation medication presenting here for persistent vomiting. PROBLEMS: 1. Persistent vomiting with hypokalemia. Possibly, secondary to Pegfilgrastim given on 09/28/2019. Symptoms started after this was given. No nausea, abdominal pain, fevers. CT of the abdomen was negative for any acute abdominal changes. He does have some tachycardia, increased RR, with normotensive blood pressure, highly elevated BUN and hypokalemia. s/p 2L NS in the ER. Zofran and Reglan on board PRN for nausea and vomiting. Does no appear infectious so no antibiotics. c/w 75CC/hr 20mEq KCl with NS for 1L and reassess PO tolerance. 2. Adenocarcinoma of the lungs with metastases- currently in chemotherapy, second-line carboplatin/pemetrexed/bevacizumab b q. 21 days, day 1, 08/15/2019 with reduced Pegfilgrastim last given on 09/28/2019 due to persistent grade [address] Bonilla, follow up as scheduled. 3. Chronic lower extremity DVT. Continue with Xarelto as prescribed. 4. Hyperlipidemia. c/w atorvastatin 5. Hypertension c/w amlodipine and lisinopril 6.GERD c/w pantoprazole 7. Adrenal insufficiency. Compliant and blood pressure is adequate . C/w prednisone 5mg DVT PROPHYLAXIS: Xarelto DISPOSITION: Admit to [facility] expect 2 midnight Vital Signs Vital Signs Date Time Temp Pulse Resp B/P (MAP) Pulse Ox O2 Delivery O2 Flow Rate FiO2 10/01/19 20:15 127 18 135/72 (93) 96 10/01/19 16:31 Room Air 10/01/19 11:31 97.6 Laboratory Data Labs 24H Laboratory Tests 2 10/01/19 12:02: Neutrophils (%) (Auto) , Nucleated Red Blood Cells % (auto) 0.0, Neutrophils 74H, Band Neutrophils 1, Lymphocytes (Manual) 14L, Monocytes (Manual) 3, Eosinophils (Manual) 2, Basophils (Manual) 1, Atypical Lymphocytes 5, Anisocytosis 1+, Platelet Estimate DECREASED, Immature Platelet Fraction 2.6, Anion Gap 9, Glomerular Filtration Rate > 60.0, Lactic Acid Level 1.7, Calcium Level 7.6L, Total Bilirubin 1.3H, Direct Bilirubin 0.5H, Aspartate Amino Transf (AST/SGOT) 24, Alanine Aminotransferase (ALT/SGPT) 29, Alkaline Phosphatase 111, Total Protein 6.8, Albumin 3.6, Albumin/Globulin Ratio 1.13, Lipase 83 10/01/19 15:35: Urine Color YELLOW, Urine Appearance CLEAR, Urine pH 6.0, Urine Specific [place] 1.013, Urine Protein 1+H, Urine Glucose (UA) NEGATIVE, Urine Ketones 1+H, Urine Blood 1+H, Urine Nitrite NEGATIVE, Urine Bilirubin NEGATIVE, Urine Urobilinogen 4.0H, Urine Leukocyte Esterase NEGATIVE, Urine WBC (Auto) 0, Urine RBC (Auto) 9H, Urine Hyaline Casts (Auto) 0, Urine Bacteria (Auto) NEGATIVE, Urine Squamous Epithelial Cells 0, Urine Mucus (Auto) SMALL, Urine Sperm (Auto) CBC/BMP Laboratory Tests 10/01/19 12:02 Microbiology Microbiology 10/01/19 Blood Culture, Received Pending 10/01/19 Blood Culture, Received Pending Home Medications Scheduled Amlodipine Besylate (Amlodipine Besylate) 10 Mg Tab, 10 MG PO DAILY Atorvastatin Calcium (Atorvastatin Calcium) 80 Mg Tab, 80 MG PO QHS Calcium Carb, Citrate/Vit D3 (Calcium + D3 ER Tablet) 1 Each Tablet.er, 2 TAB PO DAILY Cyanocobalamin (Vitamin B-12) (B-12) 1,000 Mcg Tablet, 1,000 MCG PO DAILY Folic Acid (Folic Acid) 1 Mg Tablet, 1 MG PO DAILY Hydrocortisone (Hydrocortisone 2.5%) 28.35 Gm Oint...g., 1 APLCT TOP BID Ketoconazole (Ketoconazole) 15 Gm Cream..g., 1 APLCT TOP DAILY Lisinopril (Lisinopril) 40 Mg Tab, 40 MG PO DAILY Pantoprazole Sodium (Pantoprazole Sodium) 40 Mg Tab, 40 MG PO DAILY Prednisone (Prednisone) 5 Mg Tablet, 5 MG PO ASDIRECTED TAKE ONE AND ONE-HALF TABS PO FOR ADRENAL INSUFFICIENCY. MAY DOUBLE FOR ACUTE ILLNESS. Rivaroxaban (Xarelto) 20 Mg Tab, 20 MG PO QHS Scheduled PRN Ondansetron HCl (Ondansetron HCl) 8 Mg Tablet, 8 MG PO Q6H PRN for NAUSEA OR VOMITING Prochlorperazine Maleate (Prochlorperazine Maleate) 10 Mg Tablet, 10 MG PO Q8H PRN for NAUSEA OR VOMITING Allergies Coded Allergies: Penicillins (Verified Allergy, Intermediate, RASH, 10/01/19) aspirin (Verified Allergy, Unknown, 10/01/19) GME ATTESTATION GME ATTESTATION My faculty preceptor for this patient encounter was physically present during the encounter and was fully available. All aspects of the patient interview, examination, medical decision making process, and medical care plan development were reviewed and approved by the faculty preceptor. The faculty preceptor is aware and concurs with the plan as stated in the body of this note and will attest to such by his/her cosignature. ATTENDING NOTE Time of service 900PM I reviewed the note and agree with the findings as documented by Dr.Jacob- Lo. EUGENE MACHADO DO Oct 01, 2019 21:47 RAIZA BERGERON MD Oct 01, 2019 23:33
[2019-10-01 22:10] VITALS: BP 115/79
[2019-10-01] MEDS: RIVAROXABAN 20 MG TAB (XARELTO) PO SCH (22:32)
[2019-10-01] MEDS: ATORVASTATIN 20 MG TAB PO SCH (22:33)
[2019-10-02] MEDS ORDERED: KETOCONAZOLE 2% CREAM TOP PRN
[2019-10-02 00:55] LABS: MAGNESIUM LEVEL 2.1 MG/DL (1.8-2.4)
--- NOTE | 2019-10-02 01:41 | REP ---
REASON FOR EXAM: Nausea and vomiting. There are no prior ultrasound examinations for comparison. Prior CT obtained 3 months ago showed renal cysts and a hepatic cyst. The gallbladder is normal. The common bile duct measures 4 mm. There is a cyst in the liver, seen on the prior CT. The hepatic parenchymal echo pattern is otherwise normal. There is no intrahepatic ductal dilatation. There is no solid mass. The imaged portion of right kidney shows right renal cysts, known by CT. There is also a large right renal pelvis, also known and unchanged when compared to the CT. No free fluid is seen in the abdomen. IMPRESSION: Hepatic and renal cysts with dilated right renal pelvis, all known by prior CT. There is no gallbladder abnormality. There is no ductal dilatation. Electronically Signed by Iglesia Hernandez DO 10/02/2019 07:58 A
[2019-10-02 05:55] LABS: HEMATOCRIT 34.1 % (42.0-52.0); HEMOGLOBIN 11.8 g/dl (13.5-17.5); MEAN CORPUSCULAR HGB CONC 34.6 g/dl (32.0-36.5); MEAN CORPUSCULAR VOLUME 95.3 fl (80.0-96.0); RED BLOOD COUNT 3.58 10^6/uL (4.30-6.10); WHITE BLOOD COUNT 7.1 10^3/uL (4.0-10.0)
[2019-10-02 06:00] VITALS: BP 112/77
[2019-10-02 06:15] LABS: PLATELET COUNT, AUTOMATED 56 10^3/uL (150-450)
[2019-10-02 06:16] LABS: ALBUMIN 3.2 GM/DL (3.2-5.2); ALT/SGPT 29 U/L (12-78); BILIRUBIN,TOTAL 0.9 MG/DL (0.2-1.0); BLOOD UREA NITROGEN 13 MG/DL (7-18); CALCIUM LEVEL 6.8 MG/DL (8.5-10.1); CARBON DIOXIDE LEVEL 23 MEQ/L (21-32); CHLORIDE LEVEL 104 MEQ/L (98-107); CREATININE FOR GFR 0.74 MG/DL (0.70-1.30); GLOMERULAR FILTRATION RATE > 60.0 (>56); GLUCOSE, FASTING 109 MG/DL (70-100); MAGNESIUM LEVEL 2.1 MG/DL (1.8-2.4); POTASSIUM SERUM 3.4 MEQ/L (3.5-5.1); SODIUM LEVEL 135 MEQ/L (136-145); TOTAL PROTEIN 6.1 GM/DL (6.4-8.2)
[2019-10-02] MEDS: predniSONE 2.5 MG TAB PO SCH (08:37)
[2019-10-02] MEDS: PANTOPRAZOLE 40MG TAB (PROTONIX) PO SCH (08:37)
[2019-10-02] MEDS: FOLIC ACID 1 MG TAB PO SCH (08:37)
[2019-10-02] MEDS: KCL 10MEQ/100ML SWI (KRUN) 10 MEQ in IV 1 EA IV SCH ×2 (08:38→10:11)
[2019-10-02] MEDS: lisinopriL 40 MG TAB PO SCH (08:39)
[2019-10-02] MEDS: amLODIPine 10 MG TAB PO SCH (08:40)
--- NOTE | 2019-10-02 12:58 | IPNPDOC ---
Subjective Date Seen The patient was seen on 10/02/19. Subjective Chief Complaint/HPI Patient feeling much better. He is hungry now, which is to eat General: Denies: ROS Unobtainable, Chills, Night Sweats, Fatigue, Malaise, Normal Appetite, Other Symptoms Constitutional: Denies: Chills, Fever, Malaise, Night Sweats, Weakness, Fatigue, Weight Loss, Lethargy, Other Pulmonary: Denies: Dyspnea, Cough, Pleuritic Chest Pain, Other Symptoms Cardiovascular: Denies: Chest Pain, Palpitations, Orthopnea, Paroxysmal Noc. Dyspnea, Edema, Lt Headedness, Other Symptoms Musculoskeletal: Denies: Neck Pain, Back Pain, Shoulder Pain, Arm Pain, Hand Pain, Leg Pain, Foot Pain, Joint Pain, Muscle Pain, Spasms, Other Symptoms Neurological: Denies: Weakness, Numbness, Change in speech, Confusion Objective Physical Examination General Exam: Positive: Alert, Cooperative Eye Exam: Positive: PERRLA, Conjunctiva & lids normal ENT Exam: Positive: Atraumatic Neck Exam: Positive: Supple Chest Exam: Positive: Clear to auscultation, Normal air movement Heart Exam: Positive: Rate Normal, Normal S1, Normal S2 Abdomen Exam: Positive: Normal bowel sounds, Soft Extremity Exam: Positive: Normal pulses Skin Exam: Positive: Nl turgor and temperature Neuro Exam: Positive: Strength at 5/5 X4 ext, Cranial Nerves 3-12 NL Psych Exam: Positive: Mood NL, Oriented x 3 Assessment /Plan Problems (1) Nausea and vomiting Status: Acute Problem Text: Patient admitted with the diagnosis of intractable nausea, vomiting and hypokalemia, most likely secondary to chemotherapy. Patient was started on normal saline. Potassium supplement. Zofran and Reglan which he has responded very well so far. His nausea, vomiting has completely resolved and he is requesting food Will restart feeding him again as tolerated and hopefully will discharge home tomorrow (2) Hypokalemia Status: Acute Problem Text: Secondary to intractable vomiting Potassium has been supplemented again this morning. Repeat levels in a.m. (3) Lung cancer metastatic to bone Status: Acute Problem Text: Adenocarcinoma of lung with distant metastases by history. He is currently receiving chemotherapy Follow with Dr. Bonilla as an outpatient Plan/VTE VTE Prophylaxis Ordered?: Yes VS, I&O, 24H, Fishbone Vital Signs/I&O Vital Signs Date Time Temp Pulse Resp B/P (MAP) Pulse Ox O2 Delivery O2 Flow Rate FiO2 10/02/19 08:40 97 119/78 10/02/19 06:00 99.0 19 96 Room Air I&O- Last 24 Hours up to 6 AM 10/02/19 05:59 Intake Total 2180 ml Output Total 550 ml Balance 1630 ml Laboratory Data 24H LABS Laboratory Tests 2 10/01/19 15:35: Urine Color YELLOW, Urine Appearance CLEAR, Urine pH 6.0, Urine Specific [place] 1.013, Urine Protein 1+H, Urine Glucose (UA) NEGATIVE, Urine Ketones 1+H, Urine Blood 1+H, Urine Nitrite NEGATIVE, Urine Bilirubin NEGATIVE, Urine Urobilinogen 4.0H, Urine Leukocyte Esterase NEGATIVE, Urine WBC (Auto) 0, Urine RBC (Auto) 9H, Urine Hyaline Casts (Auto) 0, Urine Bacteria (Auto) NEGATIVE, Urine Squamous Epithelial Cells 0, Urine Mucus (Auto) SMALL, Urine Sperm (Auto) 10/02/19 05:25: Nucleated Red Blood Cells % (auto) 0.0, Anion Gap 8, Glomerular Filtration Rate > 60.0, Calcium Level 6.8L, Magnesium Level 2.1, Total Bilirubin 0.9, Aspartate Amino Transf (AST/SGOT) 27, Alanine Aminotransferase (ALT/SGPT) 29, Alkaline Phosphatase 110, Total Protein 6.1L, Albumin 3.2, Albumin/Globulin Ratio 1.10 CBC/BMP Laboratory Tests 10/02/19 05:25 Microbiology Microbiology 10/01/19 Blood Culture - Preliminary, Resulted No growth after 24 hours . All specim... 10/01/19 Blood Culture - Preliminary, Resulted No growth after 24 hours . All specim... JAIRON RINALDI MD Oct 02, 2019 12:58
[2019-10-02 14:00] VITALS: BP 118/79
[2019-10-02] MEDS: RIVAROXABAN 20 MG TAB (XARELTO) PO SCH (21:01)
[2019-10-02] MEDS: ATORVASTATIN 20 MG TAB PO SCH (21:01)
[2019-10-02 22:00] VITALS: BP 115/68
[2019-10-03 06:00] VITALS: BP 116/66
[2019-10-03 06:14] LABS: HEMATOCRIT 31.6 % (42.0-52.0); HEMOGLOBIN 10.9 g/dl (13.5-17.5); MEAN CORPUSCULAR HEMOGLOBIN 32.9 pg (27.0-33.0); MEAN CORPUSCULAR HGB CONC 34.5 g/dl (32.0-36.5); MEAN CORPUSCULAR VOLUME 95.5 fl (80.0-96.0); RED BLOOD COUNT 3.31 10^6/uL (4.30-6.10); WHITE BLOOD COUNT 5.8 10^3/uL (4.0-10.0)
[2019-10-03 06:35] LABS: ALT/SGPT 26 U/L (12-78); BILIRUBIN,TOTAL 0.6 MG/DL (0.2-1.0); BLOOD UREA NITROGEN 12 MG/DL (7-18); CALCIUM LEVEL 7.1 MG/DL (8.5-10.1); CARBON DIOXIDE LEVEL 26 MEQ/L (21-32); CHLORIDE LEVEL 103 MEQ/L (98-107); GLOMERULAR FILTRATION RATE > 60.0 (>56); GLUCOSE, FASTING 99 MG/DL (70-100); MAGNESIUM LEVEL 2.1 MG/DL (1.8-2.4); POTASSIUM SERUM 3.2 MEQ/L (3.5-5.1); SODIUM LEVEL 135 MEQ/L (136-145)
[2019-10-03 07:05] LABS: PLATELET COUNT, AUTOMATED 46 10^3/uL (150-450)
[2019-10-03] MEDS ORDERED: POTASSIUM CHLORIDE 10 MEQ SR TABLET PO ONE (08:00)
[2019-10-03 08:26] VITALS: BP 118/67
[2019-10-03] MEDS: FOLIC ACID 1 MG TAB PO SCH (08:26)
[2019-10-03] MEDS: amLODIPine 10 MG TAB PO SCH (08:26)
[2019-10-03] MEDS: lisinopriL 40 MG TAB PO SCH (08:26)
[2019-10-03] MEDS: predniSONE 2.5 MG TAB PO SCH (08:26)
[2019-10-03] MEDS: PANTOPRAZOLE 40MG TAB (PROTONIX) PO SCH (08:27)
[2019-10-03] MEDS ORDERED: POTA10TA16 PO (11:11)
--- NOTE | 2019-10-03 17:02 | DS.PDOC ---
Discharge Summary General Date of Admission Oct 01, 2019 at 20:28 Date of Discharge 10/03/19 Discharge Summary PROCEDURES PERFORMED DURING STAY: None. ADMITTING DIAGNOSES: 1. Hypokalemia, nausea and vomiting. DISCHARGE DIAGNOSES: 1. Hypokalemia, nausea and vomiting, metastatic adenocarcinoma of lungs, DVT. COMPLICATIONS/CHIEF COMPLAINT: Hypokalemia,Nausea And Vomiting,Sirs. HISTORY OF PRESENT ILLNESS: This is a 59-year-old male with a pertinent past medical history of metastatic adenocarcinoma of the lungs currently on chemotherapy and chronic left lower leg DVT on long-term anticoagulation medic ation presenting here for persistent vomiting for the last 3 days. He was brought in via EMS. He states he is unable to tolerate anything by mouth including liquids. He describes the vomiting as bilious non-bloody that occurs at random times. He denies food stuck in his throat, nausea, diarrhea, abdominal pain, fevers, chills, night sweats, or worsening weight loss. He endorses he is currently on chemotherapy for his adenocarcinoma of the lungs and his drug regimen was changed a couple months prior for he was having persistent neutropenia. He does endorse his last chemotherapy was 1 week prior and had Pegfilgrastim on 09/27 and noticed the symptoms started right after. He has no other complaints at this time, and did not want to talk anymore during the exam. HOSPITAL COURSE: Patient admitted with the diagnosis of intractable nausea, vomiting and hypokalemia, most likely secondary to chemotherapy. Patient was started on normal saline. Potassium supplement. Zofran and Reglan which he has responded very well so far. His nausea, vomiting has completely resolved and he is requesting food Patient was restarted feeding. He tolerated very well. His repeat laboratory work also came out within normal range and he will be discharged home today Patient also was found to hypokalemia Secondary to intractable vomiting POTASSIUM supplements were given with correction of his potassium also. He is been prescribed KCl 10 mg by mouth daily for 7 days Regarding lung cancer. Patient will follow-up with Dr. Bonilla for chemotherapy . DISCHARGE MEDICATIONS: Please see below. ALLERGIES: Please see below. PHYSICAL EXAMINATION ON DISCHARGE: VITAL SIGNS: Please see below. GENERAL: Within normal limits HEENT: PERRLA, extraocular muscles intact NECK: Supple CARDIOVASCULAR EXAMINATION: S1, S2, regular RESPIRATORY EXAMINATION: Clear to A&P ABDOMINAL EXAMINATION: Benign EXTREMITIES: No clubbing, cyanosis, edema SKIN: Normal NEUROLOGICAL EXAMINATION: . No focal motor sensory deficit PSYCHIATRIC EXAMINATION: Normal LABORATORY DATA: Please see below. IMAGING: CT abdomen and pelvis: IMPRESSION: 1. No acute intra-abdominal findings. 2. Other chronic findings, as above. PROGNOSIS: Unknown ACTIVITY: As tolerated. DIET: As tolerated DISCHARGE PLAN: Discharge home DISPOSITION: 01 Home, Self-Care. DISCHARGE INSTRUCTIONS: 1. As per discharge instruction. ITEMS TO FOLLOWUP ON ON OUTPATIENT: 1. Follow with oncology as an outpatient. DISCHARGE CONDITION: Stable. TIME SPENT ON DISCHARGE: 35 minutes. Vital Signs/I&Os Vital Signs Date Time Temp Pulse Resp B/P (MAP) Pulse Ox O2 Delivery O2 Flow Rate FiO2 10/03/19 08:26 90 118/67 10/03/19 06:00 98.2 17 95 Room Air I&O- Last 24 Hours up to 6 AM 10/03/19 06:00 Intake Total 2855 ml Output Total 0 ml Balance 2855 ml Laboratory Data Labs 24H Laboratory Tests 2 10/03/19 05:39: Nucleated Red Blood Cells % (auto) 0.0, Immature Platelet Fraction 2.7, Anion Gap 6L, Glomerular Filtration Rate > 60.0, Calcium Level 7.1L, Magnesium Level 2.1, Total Bilirubin 0.6, Aspartate Amino Transf (AST/SGOT) 22, Alanine Aminotransferase (ALT/SGPT) 26, Alkaline Phosphatase 94, Total Protein 6.0L, Albumin 3.0L, Albumin/Globulin Ratio 1.00 CBC/BMP Laboratory Tests 10/03/19 05:39 Microbiology Microbiology 10/01/19 Blood Culture - Preliminary, Resulted No Growth after 48 hours. All Specime... 10/01/19 Blood Culture - Preliminary, Resulted No Growth after 48 hours. All Specime... Discharge Medications Scheduled Amlodipine Besylate (Amlodipine Besylate) 10 Mg Tab, 10 MG PO DAILY, (Reported) Atorvastatin Calcium (Atorvastatin Calcium) 80 Mg Tab, 80 MG PO QHS, (Reported) Calcium Carb, Citrate/Vit D3 (Calcium + D3 ER Tablet) 1 Each Tablet.er, 2 TAB PO DAILY, (Reported) Cyanocobalamin (Vitamin B-12) (B-12) 1,000 Mcg Tablet, 1,000 MCG PO DAILY, (Reported) Folic Acid (Folic Acid) 1 Mg Tablet, 1 MG PO DAILY, (Reported) Hydrocortisone (Hydrocortisone 2.5%) 28.35 Gm Oint...g., 1 APLCT TOP BID, (Reported) Ketoconazole (Ketoconazole) 15 Gm Cream..g., 1 APLCT TOP DAILY, (Reported) Lisinopril (Lisinopril) 40 Mg Tab, 40 MG PO DAILY, (Reported) Pantoprazole Sodium (Pantoprazole Sodium) 40 Mg Tab, 40 MG PO DAILY, (Reported) Potassium Chloride (Potassium Chloride) 10 Meq Tab.er.prt, 10 MEQ PO DAILY Prednisone (Prednisone) 5 Mg Tablet, 5 MG PO ASDIRECTED, (Reported) TAKE ONE AND ONE-HALF TABS PO FOR ADRENAL INSUFFICIENCY. MAY DOUBLE FOR ACUTE ILLNESS. Rivaroxaban (Xarelto) 20 Mg Tab, 20 MG PO QHS, (Reported) Scheduled PRN Ondansetron HCl (Ondansetron HCl) 8 Mg Tablet, 8 MG PO Q6H PRN for NAUSEA OR VOMITING, (Reported) Prochlorperazine Maleate (Prochlorperazine Maleate) 10 Mg Tablet, 10 MG PO Q8H PRN for NAUSEA OR VOMITING, (Reported) Allergies Coded Allergies: Penicillins (Verified Allergy, Intermediate, RASH, 10/01/19) aspirin (Verified Allergy, Unknown, 10/01/19) JAIRON RINALDI MD Oct 03, 2019 17:02
== END 2019-10-03 13:29 | disposition home or self-care (01) | DRG 249 ==
LOC: EDBD 11:14 → M ED 11:14 → M ED INP 20:28 → ENRESERV 21:17 → M MSPAV 22:09
PROVIDERS: ADMIT Internal Medicine; ATTEND Internal Medicine
DX: R11.15 Cyclical vomiting syndrome unrelated to migraine (principal); C79.51 Secondary malignant neoplasm of bone; C34.90 Malignant neoplasm of unspecified part of unspecified bronchus or lung; E27.40 Unspecified adrenocortical insufficiency; I82.509 Chronic embolism and thrombosis of unspecified deep veins of unspecified lower extremity; I10 Essential (primary) hypertension; K21.9 Gastro-esophageal reflux disease without esophagitis; I73.9 Peripheral vascular disease, unspecified; E78.5 Hyperlipidemia, unspecified; F17.210 Nicotine dependence, cigarettes, uncomplicated; T45.1X5A Adverse effect of antineoplastic and immunosuppressive drugs, initial encounter; E87.6 Hypokalemia; Z79.52 Long term (current) use of systemic steroids; Z79.899 Other long term (current) drug therapy; Z79.01 Long term (current) use of anticoagulants; Z85.828 Personal history of other malignant neoplasm of skin

== ENCOUNTER → 2019-10-09 | Outpatient (REF) | payer OTHER ==
[~2019-10-09] MED LIST changes: +B-12100021 PO; +CALC-218 PO; +HYDR25OI TOP; +ONDA4TAB6 PO; +POTA10TA16 PO; +PRED5TA PO
[2019-10-09 14:49] LABS: BLOOD UREA NITROGEN 21 MG/DL (7-18); CALCIUM LEVEL 9.1 MG/DL (8.5-10.1); CARBON DIOXIDE LEVEL 27 MEQ/L (21-32); CHLORIDE LEVEL 102 MEQ/L (98-107); CREATININE FOR GFR 0.92 MG/DL (0.70-1.30); GLOMERULAR FILTRATION RATE > 60.0 (>56); GLUCOSE, FASTING 109 MG/DL (70-100); MAGNESIUM LEVEL 1.1 MG/DL (1.8-2.4); POTASSIUM SERUM 4.4 MEQ/L (3.5-5.1); SODIUM LEVEL 137 MEQ/L (136-145)
== END ==
LOC: M SFHCPLAZ 11:41
PROVIDERS: ATTEND Internal Medicine
DX: E87.6 Hypokalemia (principal); R11.14 Bilious vomiting

== ENCOUNTER → 2019-11-02 | Outpatient (CLI) | payer OTHER ==
[~2019-11-02] MED LIST changes: +GASTROGRAFIN SOLUTION 30ML (Q9963) As Ordered ONE; +ISOVUE-370 76% 100ML VIAL As Ordered ONE; +MAGN250T7 PO
--- NOTE | 2019-11-03 08:54 | REP ---
CT CHEST WITH IV CONTRAST: TECHNIQUE: Axial contrast-enhanced images from the thoracic inlet to the upper abdomen using 100 mL Isovue-370 intravenous contrast material with multiplanar reformations. COMPARISON: 07/04/2019 Diffuse fibrotic changes in the lungs are stable. There is some mild thickening along the right minor fissure which is stable. There is some parenchymal fibrosis and mild pleural thickening anterolaterally on the left, which is stable. There are adjacent old nondisplaced left rib fractures. No new pulmonary nodule is seen. No axillary adenopathy is seen. No significantly enlarged hilar lymph nodes are seen. 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 It now measures about 2.7 x 1.5 cm. Another lymph node more anteriorly has decreased in size, measuring 1.4 x 1.1 cm. However, an intervening lymph node at this location has mildly increased in size, measuring 2.0 x 1.3 cm. A more anterior-superior lymph node along the anterior aspect of the aortic arch has mildly increased in size measuring 1.4 x 1.3 cm. This is bilobed. There is a new superior mediastinal lymph node to the right of midline 1.3 cm in diameter best seen on image 22. Other adjacent small superior mediastinal lymph nodes appear stable. Heart is normal in size. There is no pleural or pericardial effusion. There are mild degenerative changes of the spine. 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 However, there is one lymph node in this region which has increased in size. Another lymph node more superiorly at the anterior margin of the aortic arch has mildly increased in size. There is a new mildly enlarged lymph node in the superior mediastinum. Electronically Signed by Robson Mancuso MD 11/03/2019 09:33 P
--- NOTE | 2019-11-03 08:57 | REP ---
CT ABDOMEN AND PELVIS WITH ORAL AND IV CONTRAST: TECHNIQUE: Axial contrast-enhanced images from the lung bases to the pubic symphysis using 100 mL Isovue-370 intravenous contrast material with multiplanar reformations. COMPARISON STUDIES: 10/01/2019 and 07/04/2019. Stable cyst is seen in the left lobe of the liver. The spleen demonstrates no abnormality. The adrenal glands are normal. Pancreas demonstrates no mass. There is no pancreatic duct dilatation. Gallbladder is grossly unremarkable. Bilateral renal cysts are benign and stable. Largest is in the mid right kidney and has a maximum diameter of 6 cm. There is moderate atherosclerotic calcification of the abdominal aorta without aneurysm. There is no evidence of lymphadenopathy in the abdomen or pelvis. There is no free air or free fluid. There is no bowel thickening. The appendix is normal. Urinary bladder is mildly distended and grossly unremarkable. Prostate is mildly enlarged. There are degenerative changes of the spine. IMPRESSION: Stable liver cyst. Stable renal cysts. No adenopathy or suspicious mass. No acute abnormalities. Electronically Signed by Robson Mancuso MD 11/03/2019 09:33 P
== END ==
LOC: M RAD 12:54
PROVIDERS: ATTEND Internal Medicine Medical Oncology
DX: C34.92 Malignant neoplasm of unspecified part of left bronchus or lung (principal); J84.10 Pulmonary fibrosis, unspecified; R59.0 Localized enlarged lymph nodes
CPT/HCPCS: 71260; 74177; Q9963; Q9967

== ENCOUNTER → 2019-11-06 | Outpatient (CLI) | payer OTHER ==
[~2019-11-06] MED LIST changes: -GASTROGRAFIN SOLUTION 30ML (Q9963) As Ordered ONE; -ISOVUE-370 76% 100ML VIAL As Ordered ONE
== END ==
LOC: M LABSMTC 11:02
PROVIDERS: ATTEND Anesthesiology
DX: Z01.818 Encounter for other preprocedural examination (principal); Z11.59 Encounter for screening for other viral diseases
CPT/HCPCS: C9803; U0003

== ENCOUNTER 2019-11-09 09:59 | Day surgery (SDC) | payer OTHER ==
[~2019-11-09] VITALS: Ht 175.3 cm; Wt 73.0 kg
[~2019-11-09 09:59] MED LIST changes: +NS 1,000 ML IV ONE; -POTA10TA16
[2019-11-09 10:53] LABS: HEMATOCRIT 32.4 % (42.0-52.0); HEMOGLOBIN 11.1 g/dl (13.5-17.5); MEAN CORPUSCULAR HEMOGLOBIN 35.8 pg (27.0-33.0); MEAN CORPUSCULAR HGB CONC 34.3 g/dl (32.0-36.5); MEAN CORPUSCULAR VOLUME 104.5 fl (80.0-96.0); WHITE BLOOD COUNT 5.3 10^3/uL (4.0-10.0)
[2019-11-09 10:54] LABS: PLATELET COUNT, AUTOMATED 73 10^3/uL (150-450)
[2019-11-09] MEDS ORDERED: LIDOCAINE 2% 100MG/5ML SDV (FOR ANES.) As Ordered ONE (11:12)
[2019-11-09] MEDS ORDERED: propofoL 200 MG/20 ML VIAL As Ordered ONE ×3 (11:12→12:24)
--- NOTE | 2019-11-09 11:40 | ROOR ---
Patient Name: Domenico Hughes Procedure Date: 11/09/2019 11:24 AM Date of : 1960 Age: 59 Room: [facility] Gender: Male Note Status: Finalized Procedure: Upper GI endoscopy Indications: Iron deficiency anemia Providers: Duong JOVEL MD Referring MD: Yudy Bonilla MD, [facility] [place] Requesting Provider: Medicines: Monitored Anesthesia Care Complications: No immediate complications. Procedure: Pre-Anesthesia Assessment: - The heart rate, respiratory rate, oxygen saturations, blood pressure, adequacy of pulmonary ventilation, and response to care were monitored throughout the procedure. The Endoscope was introduced through the mouth, and advanced to the second part of duodenum. The upper GI endoscopy was accomplished without difficulty. The patient tolerated the procedure well. Findings: The esophagus was normal. The stomach was normal. with a very small hiatal hernia The examined duodenum was normal. Impression: - Normal esophagus. - Normal stomach with a small hiatal hernia. - Normal examined duodenum. - No specimens collected. Recommendation: - Observe patient's clinical course. - Return to referring physician as previously scheduled. Duong Jovel MD Duong JOVEL MD 11/09/2019 11:40:02 AM Electronically signed by Duong JOVEL MD Number of Addenda: 0 Note Initiated On: 11/09/2019 11:24 AM Estimated Blood Loss: Estimated blood loss: none.
--- NOTE | 2019-11-09 11:57 | ROOR ---
Patient Name: Domenico Hughes Procedure Date: 11/09/2019 11:26 AM Date of : 1960 Age: 59 Room: [facility] Gender: Male Note Status: Finalized Procedure: Colonoscopy Indications: Hematochezia Providers: Duong JOVEL MD Referring MD: [facility] MANDY [facility] Yudy Langston Md Requesting Provider: Medicines: Monitored Anesthesia Care Complications: No immediate complications. Procedure: Pre-Anesthesia Assessment: - The heart rate, respiratory rate, oxygen saturations, blood pressure, adequacy of pulmonary ventilation, and response to care were monitored throughout the procedure. The Colonoscope was introduced through the anus and advanced to the cecum, identified by appendiceal orifice and ileocecal valve. The colonoscopy was performed without difficulty. The patient tolerated the procedure well. The quality of the bowel preparation was adequate. Findings: The perianal and digital rectal examinations were normal. Internal hemorrhoids were found during retroflexion. The hemorrhoids were small. Multiple medium-mouthed diverticula were found in the sigmoid colon. A tattoo was seen in the recto-sigmoid colon. A post-polypectomy scar was found at the tattoo site. There was no evidence of residual polyp tissue. The exam was otherwise without abnormality on direct and retroflexion views. Impression: - Internal hemorrhoids. - Diverticulosis in the sigmoid colon. - A tattoo was seen in the recto-sigmoid colon. A post-polypectomy scar was found at the tattoo site. There was no evidence of residual polyp tissue. - The colon examination was otherwise normal on direct and retroflexion views. - No specimens collected. Recommendation: - Repeat colonoscopy in 3 years for surveillance. - (as previously scheduled for previous adenoma surveillance) Duong Jovel MD Duong JOVEL MD 11/09/2019 11:57:09 AM Electronically signed by Duong JOVEL MD Number of Addenda: 0 Note Initiated On: 11/09/2019 11:26 AM Estimated Blood Loss: Estimated blood loss: none.
[2019-11-09 12:20] VITALS: BP 115/58
[2019-11-09] MEDS ORDERED: ePHEDrine SULFATE 25 MG/5 ML(5MG/ML) SYRINGE As Ordered ONE (12:27)
== END 2019-11-09 12:21 | disposition home or self-care (01) ==
LOC: M OPP 09:59
PROVIDERS: ATTEND Internal Medicine Gastroenterology
DX: K64.8 Other hemorrhoids (principal); K92.1 Melena; K57.30 Diverticulosis of large intestine without perforation or abscess without bleeding; D50.9 Iron deficiency anemia, unspecified; Z79.899 Other long term (current) drug therapy; Z88.0 Allergy status to penicillin; Z88.6 Allergy status to analgesic agent

== ENCOUNTER → 2019-11-09 | Outpatient (REF) | payer OTHER ==
[~2019-11-09] MED LIST changes: +POTA10TA16
[2019-11-09 18:38] LABS: BLOOD UREA NITROGEN 12 MG/DL (7-18); CALCIUM LEVEL 7.9 MG/DL (8.5-10.1); CARBON DIOXIDE LEVEL 23 MEQ/L (21-32); CHLORIDE LEVEL 102 MEQ/L (98-107); CREATININE FOR GFR 0.71 MG/DL (0.70-1.30); GLOMERULAR FILTRATION RATE > 60.0 (>56); GLUCOSE, FASTING 123 MG/DL (70-100); POTASSIUM SERUM 3.6 MEQ/L (3.5-5.1); SODIUM LEVEL 134 MEQ/L (136-145)
== END ==
LOC: M LABDRWAD 17:13
PROVIDERS: ATTEND Nurse Practitioner Family
DX: E27.49 Other adrenocortical insufficiency (principal)

== ENCOUNTER 2019-11-17 08:17 | Emergency (ER) | payer OTHER ==
[~2019-11-17] VITALS: Ht 175.3 cm; Wt 70.8 kg
[~2019-11-17 08:17] MED LIST changes: -NS 1,000 ML IV ONE
[2019-11-17] MEDS ORDERED: ONDANSETRON 4MG/2ML VIAL IV ONE (09:00)
[2019-11-17] MEDS ORDERED: NS 1,000 ML IV ONE ×2 (09:00→11:00)
[2019-11-17 09:38] LABS: BASO % 0.6 % (0.0-1.0); EOS # 0.1 10^3/uL (0.0-0.5); EOS % 2.6 % (0.0-3.0); HEMATOCRIT 32.4 % (42.0-52.0); HEMOGLOBIN 11.1 g/dl (13.5-17.5); LYMPH # 0.9 10^3/uL (1.5-5.0); MEAN CORPUSCULAR HEMOGLOBIN 35.2 pg (27.0-33.0); MEAN CORPUSCULAR HGB CONC 34.3 g/dl (32.0-36.5); MEAN CORPUSCULAR VOLUME 102.9 fl (80.0-96.0); MONO # 0.6 10^3/uL (0.0-0.8); MONO % 12.6 % (0.0-5.0); NEUTROPHILS # 3.2 10^3/uL (1.5-8.5); RED BLOOD COUNT 3.15 10^6/uL (4.30-6.10)
[2019-11-17 09:40] LABS: PLATELET COUNT, AUTOMATED 80 10^3/uL (150-450)
[2019-11-17 10:14] LABS: ALBUMIN 3.5 GM/DL (3.2-5.2); BILIRUBIN,DIRECT 0.4 MG/DL (0.0-0.2); BILIRUBIN,TOTAL 1.3 MG/DL (0.2-1.0); MAGNESIUM LEVEL 1.7 MG/DL (1.8-2.4); TOTAL PROTEIN 7.4 GM/DL (6.4-8.2)
[2019-11-17 12:00] VITALS: BP 127/77
--- NOTE | 2019-11-17 15:33 | REP ---
Single view chest: 11/17/2019. Indication: Emesis. Comparison: 10/01/2019. Findings: Chronic pleuroparenchymal changes are redemonstrated. The lungs are free of consolidation. There is no pleural effusion or pneumothorax. The cardiac silhouette is normal in size. Impression: Clear lungs. Stable chronic fibrotic changes. Electronically Signed by Leonid Camara DO 11/17/2019 03:25 P
--- NOTE | 2019-11-18 16:00 | ECGEPIP ---
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
== END 2019-11-17 12:34 | disposition home or self-care (01) ==
LOC: M ED 08:17
DX: R11.10 Vomiting, unspecified (principal); R00.0 Tachycardia, unspecified; C34.90 Malignant neoplasm of unspecified part of unspecified bronchus or lung; C79.49 Secondary malignant neoplasm of other parts of nervous system; I10 Essential (primary) hypertension; K21.9 Gastro-esophageal reflux disease without esophagitis; E78.9 Disorder of lipoprotein metabolism, unspecified; Z86.19 Personal history of other infectious and parasitic diseases; Z87.891 Personal history of nicotine dependence; Z88.0 Allergy status to penicillin; Z88.6 Allergy status to analgesic agent; Z79.899 Other long term (current) drug therapy; Z79.01 Long term (current) use of anticoagulants; Z79.52 Long term (current) use of systemic steroids
CPT/HCPCS: 71045; 80047; 80076; 83605; 83690; 83735; 85025; 85049; 85055; 87040; 93005; 93041; 96361; 96374; 99284; J2405

== ENCOUNTER 2019-11-19 10:49 | Emergency (ER) | payer OTHER ==
[~2019-11-19] VITALS: Ht 175.3 cm; Wt 75.0 kg
[~2019-11-19 10:49] MED LIST changes: -AMLO10TA5 PO; +AMLO1TAB25 PO; +PANT40TA29 PO; -PANT40TA3 PO
[2019-11-19] MEDS ORDERED: POTA10TA16 (11:06)
[2019-11-19] MEDS ORDERED: ONDANSETRON 4MG/2ML VIAL IV ONE (11:30)
[2019-11-19] MEDS ORDERED: NS 1,000 ML IV ONE (11:30)
[2019-11-19 12:02] LABS: BASO % 0.5 % (0.0-1.0); EOS # 0.1 10^3/uL (0.0-0.5); EOS % 2.2 % (0.0-3.0); HEMATOCRIT 27.5 % (42.0-52.0); HEMOGLOBIN 9.5 g/dl (13.5-17.5); LYMPH # 0.7 10^3/uL (1.5-5.0); LYMPH % 15.7 % (24.0-44.0); MEAN CORPUSCULAR HEMOGLOBIN 35.3 pg (27.0-33.0); MEAN CORPUSCULAR HGB CONC 34.5 g/dl (32.0-36.5); MEAN CORPUSCULAR VOLUME 102.2 fl (80.0-96.0); MONO # 0.4 10^3/uL (0.0-0.8); MONO % 10.4 % (0.0-5.0); NEUTROPHILS # 2.9 10^3/uL (1.5-8.5); NEUTROPHILS % 69.3 % (36.0-66.0); RED BLOOD COUNT 2.69 10^6/uL (4.30-6.10); WHITE BLOOD COUNT 4.1 10^3/uL (4.0-10.0)
[2019-11-19 12:03] LABS: PLATELET COUNT, AUTOMATED 78 10^3/uL (150-450)
[2019-11-19 12:28] LABS: BLOOD UREA NITROGEN 13 MG/DL (7-18); CARBON DIOXIDE LEVEL 21 MEQ/L (21-32); CHLORIDE LEVEL 109 MEQ/L (98-107); CREATININE FOR GFR 0.49 MG/DL (0.70-1.30); GLOMERULAR FILTRATION RATE > 60.0 (>56); GLUCOSE, FASTING 91 MG/DL (70-100); POTASSIUM SERUM 2.7 MEQ/L (3.5-5.1); SODIUM LEVEL 139 MEQ/L (136-145)
[2019-11-19] MEDS ORDERED: ISOVUE-370 76% 100ML VIAL As Ordered ONE (12:47)
[2019-11-19] MEDS ORDERED: KCL 10MEQ/100ML SWI (KRUN) 10 MEQ in IV 1 EA IV ONE (13:15)
[2019-11-19] MEDS ORDERED: POTASSIUM CHLORIDE 10 MEQ SR TABLET PO ONE (13:15)
--- NOTE | 2019-11-19 13:21 | REPVR ---
PROCEDURE INFORMATION: Exam: CT Head Without And With Contrast Exam date and time: 11/19/2019 12:53 PM Age: 59 years old Clinical indication: Pain; Headache; Additional info: Vomiting, headache, met lung CA, R/O brain mets TECHNIQUE: Imaging protocol: Computed tomography of the head without and with intravenous contrast. Radiation optimization: All CT scans at this facility use at least one of these dose optimization techniques: automated exposure control; mA and/or kV adjustment per patient size (includes targeted exams where dose is matched to clinical indication); or iterative reconstruction. Contrast material: ISOVUE 370; Contrast volume: 75 ml; Contrast route: IV; COMPARISON: CT Head without contrast 02/17/2018 4:06 PM FINDINGS: Brain: There is no acute intracranial hemorrhage, cerebral edema, or midline shift. No enhancing lesions were identified after the administration of contrast. Ventricles: Normal. No ventriculomegaly. Bones/joints: Unremarkable. No acute fracture. Sinuses: Visualized sinuses are unremarkable. No fluid levels. Mastoid air cells: Visualized mastoid air cells are well aerated. Soft tissues: Unremarkable. IMPRESSION: No acute intracranial abnormality. Electronically signed by: Pelon Fonseca On 11/19/2019 13:21:31 PM
[2019-11-19 14:03] LABS: ALBUMIN 2.6 GM/DL (3.2-5.2); ALT/SGPT 40 U/L (12-78); BILIRUBIN,DIRECT 0.4 MG/DL (0.0-0.2); MAGNESIUM LEVEL 1.4 MG/DL (1.8-2.4); TOTAL PROTEIN 5.3 GM/DL (6.4-8.2)
[2019-11-19 14:11] LABS: APPEARANCE, URINE CLEAR (CLEAR); BACTERIA, URINE AUTO NEGATIVE (NEGATIVE); BILIRUBIN, URINE AUTO NEGATIVE (NEGATIVE); BLOOD, URINE BLOOD 1+ (NEGATIVE); COLOR, URINE YELLOW (YELLOW); GLUCOSE, URINE (UA) AUTO NEGATIVE (NEGATIVE); KETONE, URINE AUTO 1+ mg/dL (NEGATIVE); LEUKOCYTE ESTERASE, URINE AUTO NEGATIVE (NEGATIVE); MUCUS, URINE SMALL (NEGATIVE); NITRITE, URINE AUTO NEGATIVE (NEGATIVE); PROTEIN, URINE AUTO NEGATIVE (NEGATIVE); RBC, URINE AUTO 1 /HPF (0-3); SPECIFIC GRAVITY URINE AUTO 1.048 (1.002-1.035); SQUAMOUS EPITHELIAL CELL UR AU 0 /HPF (0-6); WBC, URINE AUTO 1 /HPF (0-3)
[2019-11-19] MEDS ORDERED: methylPREDNISolone 125MG 2ML VIAL IV ONE (15:00)
[2019-11-19 16:11] VITALS: BP 110/56
--- NOTE | 2019-11-19 21:41 | ECGEPIP ---
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 Order Number: [id number] Reading MD: Leonardo Chavez Measurements Intervals [place] Rate: 85 P: 63 HI: 192 QRS: 60 QRSD: 109 T: 44 QT: 361 QTc: 431 Interpretive Statements SINUS RHYTHM NSTTW ABNORMALITIES SIMILAR TO 11/17/19 Electronically Signed on 11-19-2019 21:40:43 EDT by Leonardo Chavez
== END 2019-11-19 16:50 | disposition home or self-care (01) ==
LOC: EDBD 10:49 → M ED 10:49
DX: R11.2 Nausea with vomiting, unspecified (principal); E87.6 Hypokalemia; E27.40 Unspecified adrenocortical insufficiency; C34.90 Malignant neoplasm of unspecified part of unspecified bronchus or lung; K76.0 Fatty (change of) liver, not elsewhere classified; Z86.718 Personal history of other venous thrombosis and embolism; Z88.0 Allergy status to penicillin; Z88.6 Allergy status to analgesic agent; Z79.899 Other long term (current) drug therapy; Z79.01 Long term (current) use of anticoagulants; Z79.52 Long term (current) use of systemic steroids
CPT/HCPCS: 36415; 70470; 80048; 80076; 81001; 83735; 85025; 85049; 85055; 93005; 96361; 96365; 96375; 99284; J2405; J2930; Q9967

== ENCOUNTER 2019-11-28 09:15 | Inpatient (IN) | payer OTHER ==
[~2019-11-28] VITALS: Ht 175.3 cm; Wt 65.8 kg
[~2019-11-28 09:15] MED LIST changes: +AMLO10TA5 PO; -AMLO1TAB25 PO; -PANT40TA29 PO; +PANT40TA3 PO; +POTA10TA16
[2019-11-28] MEDS ORDERED: NS 1,000 ML IV ONE ×2 (09:45)
[2019-11-28] MEDS ORDERED: HYDROCORTISONE 100 MG/2 ML VIAL (J1720 PER 1) IV ONE (10:00)
[2019-11-28] MEDS ORDERED: ONDA4TAB6 PO (10:29)
--- NOTE | 2019-11-28 10:44 | REP ---
CHEST, SINGLE VIEW: Single view of the chest is performed and compared to a prior study of 11/17/2019. There are chronic fibrotic changes bilaterally which are stable. There is no acute infiltrate. The heart and mediastinum are unchanged. IMPRESSION: Stable chronic changes with no superimposed acute infiltrate. Electronically Signed by Robson Mancuso MD 11/28/2019 07:33 P
[2019-11-28] MEDS ORDERED: ISOVUE-370 76% 100ML VIAL As Ordered ONE (10:47)
--- NOTE | 2019-11-28 11:38 | HPEPDOC ---
[facility] Medical History & Physical Date of Admission Nov 28, 2019 Date of Service: Nov 28, 2019 History and Physical CHIEF COMPLAINT: WEAKNESS HISTORY OF PRESENT ILLNESS: Patient is 59 year old male with metastatic adenocarcinoma of the lung, LLE DVT on Xarelto, PVD, and chronic adrenal insufficiency and daily prednisone was sent in from Oncolgist Dr. Mack's office for persistent weakness and hypercalcemia of malignancy. He was reportedly quite lethargic when he came in but improved after receiving 2L IVF boluses. He states that he has not been able to keep anything down for the past one week and feels weak with lack of appetite. Otherwise denies any other complaints including any pain/discomfort, fever, chills, chest pain or SOB. Found to have a serum Ca 14.4 in ER, corrected 14.8. Received a stress dose steroids in additional to 2L IVF bolus. PAST MEDICAL HISTORY: Refer to HPI PAST SURGICAL HISTORY: Basal cell ca of the nose resection SOCIAL HISTORY: Former smoker. Denies alcohol or drug use. FAMILY HISTORY: Reviewed and noncontributory. ALLERGIES: Please see below. REVIEW OF SYSTEMS: 10 point review of system negative except as stated in HPI HOME MEDICATIONS: Please see below. PHYSICAL EXAMINATION: General: cachectic, severe lethargy but improving Eyes: Normal sclera, EOMI HENT: Atraumatic Cardiovascular: Normal rate Pulmonary: Clear to auscultation b/l, no wheezing GI: Soft, nontender, nondistended Skin: Warm and dry Neuro: CN grossly intact. No focal deficits. Generalized weakness. Psych: oriented x 3 LABORATORY DATA: See below. IMAGING: CT chest-Pending CT abdomen/pelvis- Pending MICROBIOLOGY: Please see below. ASSESSMENT AND PLAN: 1. Hypercalcemia of malignancy - In setting of lung adenocarcinoma. - Ca initial corrected 14.8 with increased lethargy. s/p 2L IVF bolus, to continue with maintenance at 200cc/hr for now. - Calcitonin and zoledronic acid trial initiated. - Repeat and monitor BMPs. 2. Adenocarcinoma of the lung with metastasis - Follows with Dr. Yudy Bonilla and undergoing treatment. - Repeating CTs for staging per Onc's request. 3. LLE DVT - Will resume home dose Xarelto. 4. PVD - c/w statin. 5. Adrenal insufficiency - Received stress dose steroids in ER. - Would continue daily home dose from here on. DVT ppx: JENNIFER and on Xarelto Code status: DNR/DNI Vital Signs Vital Signs Date Time Temp Pulse Resp B/P (MAP) Pulse Ox O2 Delivery O2 Flow Rate FiO2 11/28/19 10:30 98 131/73 (92) 97 Room Air 11/28/19 09:32 26 11/28/19 09:19 96.8 Home Medications Scheduled Amlodipine Besylate (Amlodipine Besylate) 10 Mg Tab, 10 MG PO QHS Atorvastatin Calcium (Atorvastatin Calcium) 80 Mg Tab, 80 MG PO QHS Cyanocobalamin (Vitamin B-12) (B-12) 1,000 Mcg Tablet, 1,000 MCG PO DAILY Folic Acid (Folic Acid) 1 Mg Tablet, 1 MG PO QHS Pantoprazole Sodium (Pantoprazole Sodium) 40 Mg Tab, 40 MG PO DAILY Prednisone (Prednisone) 5 Mg Tablet, 10 MG PO QAM FOR ADRENAL INSUFFICIENCY. MAY DOUBLE FOR ACUTE ILLNESS. Rivaroxaban (Xarelto) 20 Mg Tab, 20 MG PO QHS Scheduled PRN Ondansetron (Ondansetron Odt) 4 Mg Tab.rapdis, 4 MG PO Q6H PRN for NAUSEA OR VOMITING Allergies Coded Allergies: Penicillins (Verified Allergy, Intermediate, RASH, 11/02/19) aspirin (Verified Allergy, Intermediate, RASH, 11/02/19) A-FIB/CHADSVASC A-FIB History Current/History of A-Fib/PAF?: No ROSIBEL MARIA MD Nov 28, 2019 11:38
--- NOTE | 2019-11-28 12:05 | REP ---
CT CHEST WITH IV CONTRAST: TECHNIQUE: Axial contrast-enhanced images from the thoracic inlet to the upper abdomen using 100 mL Isovue-370 intravenous contrast material with multiplanar reformations. COMPARISON: 11/02/2019 There are a few small superior mediastinal lymph nodes, which are unchanged. There are faviola masses along the lateral aspect of the aortic arch and in the aortopulmonic window, which are unchanged. No new adenopathy is seen. Pleural and parenchymal fibrotic changes are seen anteriorly on the left with other scattered fibrotic changes noted diffusely bilaterally. There is no change since the prior study. There are mild diffuse degenerative changes of the spine. There are multiple old left rib fractures again noted. There is no pleural or pericardial effusion. IMPRESSION: Stable adenopathy in the left mediastinal region and superior mediastinum. No change since the prior study of 11/02/2019. Electronically Signed by Rosbon Mancuso MD 11/28/2019 07:34 P
--- NOTE | 2019-11-28 12:09 | REP ---
CT ABDOMEN AND PELVIS WITH IV CONTRAST: TECHNIQUE: Axial contrast-enhanced images from the lung bases to the pubic symphysis using 100 mL Isovue-370 intravenous contrast material with multiplanar reformations. COMPARISON: 11/02/2019 There is no change in the cyst in the left lobe of the liver. The spleen is unremarkable. The adrenals and pancreas demonstrate no mass. There are bilateral renal cysts unchanged. There is no new adenopathy in the abdomen or pelvis. There is no free air or free fluid. There is no bowel wall thickening. The appendix is normal. There is no pelvic mass. Urinary bladder is mildly distended and grossly unremarkable. There are degenerative changes of the spine. IMPRESSION: No change since the prior study 11/02/2019. No new mass or adenopathy. Electronically Signed by Robson Mancuso MD 11/28/2019 07:34 P
[2019-11-28 12:20] VITALS: BP 139/76
[2019-11-28] MEDS ORDERED: ONDANSETRON 4MG/2ML VIAL IV PRN (12:30)
[2019-11-28] MEDS: PANTOPRAZOLE 40MG TAB (PROTONIX) PO SCH (13:09)
[2019-11-28] MEDS: NS 1,000 ML IV SCH ×4 (13:10→23:58)
[2019-11-28 13:44] LABS: ALBUMIN 2.9 GM/DL (3.2-5.2); ALT/SGPT 28 U/L (12-78); BILIRUBIN,TOTAL 1.1 MG/DL (0.2-1.0); BLOOD UREA NITROGEN 33 MG/DL (7-18); CALCIUM LEVEL 13.2 MG/DL (8.5-10.1); CARBON DIOXIDE LEVEL 25 MEQ/L (21-32); CHLORIDE LEVEL 99 MEQ/L (98-107); GLOMERULAR FILTRATION RATE > 60.0 (>56); GLUCOSE, FASTING 119 MG/DL (70-100); POTASSIUM SERUM 3.6 MEQ/L (3.5-5.1); SODIUM LEVEL 133 MEQ/L (136-145); TOTAL PROTEIN 7.2 GM/DL (6.4-8.2)
[2019-11-28] MEDS ORDERED: ZOLEDRONIC ACID 4 MG in IV 1 EA IV ONE (14:00)
[2019-11-28] MEDS: CALCITONIN SALMON (MIACALCIN) 400INTERNATIONAL UNITS/2ML INJ (J0630) SQ SCH ×2 (15:09→23:03)
[2019-11-28] MEDS: RIVAROXABAN 20 MG TAB (XARELTO) PO SCH (17:29)
[2019-11-28 17:30] LABS: ALBUMIN 2.8 GM/DL (3.2-5.2); ALT/SGPT 28 U/L (12-78); BLOOD UREA NITROGEN 29 MG/DL (7-18); CALCIUM LEVEL 12.4 MG/DL (8.5-10.1); CARBON DIOXIDE LEVEL 25 MEQ/L (21-32); CHLORIDE LEVEL 101 MEQ/L (98-107); CREATININE FOR GFR 0.65 MG/DL (0.70-1.30); GLOMERULAR FILTRATION RATE > 60.0 (>56); GLUCOSE, FASTING 124 MG/DL (70-100); POTASSIUM SERUM 3.7 MEQ/L (3.5-5.1); SODIUM LEVEL 132 MEQ/L (136-145); TOTAL PROTEIN 6.2 GM/DL (6.4-8.2)
--- NOTE | 2019-11-28 20:21 | ECGEPIP ---
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
[2019-11-28] MEDS: ATORVASTATIN 20 MG TAB PO SCH (20:23)
[2019-11-28] MEDS: FOLIC ACID 1 MG TAB PO SCH (20:23)
[2019-11-28] MEDS: amLODIPine 10 MG TAB PO SCH (20:24)
[2019-11-28 21:50] LABS: ALBUMIN 2.6 GM/DL (3.2-5.2); ALT/SGPT 26 U/L (12-78); BILIRUBIN,TOTAL 0.8 MG/DL (0.2-1.0); BLOOD UREA NITROGEN 25 MG/DL (7-18); CALCIUM LEVEL 11.3 MG/DL (8.5-10.1); CARBON DIOXIDE LEVEL 25 MEQ/L (21-32); CHLORIDE LEVEL 104 MEQ/L (98-107); GLOMERULAR FILTRATION RATE > 60.0 (>56); GLUCOSE, FASTING 112 MG/DL (70-100); POTASSIUM SERUM 3.2 MEQ/L (3.5-5.1); SODIUM LEVEL 138 MEQ/L (136-145); TOTAL PROTEIN 5.9 GM/DL (6.4-8.2)
[2019-11-28 22:00] VITALS: BP 105/63
[2019-11-29 06:00] VITALS: BP 124/66
[2019-11-29 06:08] LABS: HEMATOCRIT 28.7 % (42.0-52.0); MEAN CORPUSCULAR HGB CONC 33.4 g/dl (32.0-36.5); MEAN CORPUSCULAR VOLUME 101.8 fl (80.0-96.0); RED BLOOD COUNT 2.82 10^6/uL (4.30-6.10); WHITE BLOOD COUNT 6.9 10^3/uL (4.0-10.0)
[2019-11-29 06:12] LABS: HEMOGLOBIN 9.6 g/dl (13.5-17.5); PLATELET COUNT, AUTOMATED 91 10^3/uL (150-450)
[2019-11-29 06:34] LABS: ALBUMIN 2.6 GM/DL (3.2-5.2); ALT/SGPT 26 U/L (12-78); BILIRUBIN,TOTAL 0.9 MG/DL (0.2-1.0); BLOOD UREA NITROGEN 17 MG/DL (7-18); CALCIUM LEVEL 11.2 MG/DL (8.5-10.1); CARBON DIOXIDE LEVEL 24 MEQ/L (21-32); CHLORIDE LEVEL 106 MEQ/L (98-107); CREATININE FOR GFR 0.54 MG/DL (0.70-1.30); GLOMERULAR FILTRATION RATE > 60.0 (>56); GLUCOSE, FASTING 86 MG/DL (70-100); SODIUM LEVEL 139 MEQ/L (136-145); TOTAL PROTEIN 6.4 GM/DL (6.4-8.2)
--- NOTE | 2019-11-29 07:34 | IPNPDOC ---
Subjective Date Seen The patient was seen on 11/29/19. Subjective Chief Complaint/HPI Patient is examined at bedside. He denies any abdominal pain, fever, chills, confusion, nausea, vomiting. It was noted that patient does not have any confusion. Pt can answer his own name and place but is unable to answer the year. Reported mild abdominal pain in RLQ which had resolved after BM. Pt is noted to have incontinent stooling while in the exam room. Pt said last BM was 2-3 days ago but is unable to answer if he usually has constipation/incontinence problem. Pt is a poor historian and seems to think that he is here for the lawson's disease. He is unable to report much detail/avoidant about talking his lung malignancy treatment. Pt answers questions incoherently. It was noted that patient had mild/questionable disorientation at times without delirium, agitation, or combative behavior. Pt is A&O to name and place only General: Denies: Chills Pulmonary: Denies: Dyspnea Cardiovascular: Denies: Chest Pain, Palpitations Gastrointestinal: Reports: Other Symptoms (stool incontinence); Denies: Nausea, Vomiting, Abdominal Pain, Constipation Neurological: Reports: Confusion (reported mild/questionable disoriented at times) Objective Physical Examination General Exam: Positive: Alert, Mild Distress, Other (tired, layon preethi bed) Eye Exam: Positive: Conjunctiva & lids normal ENT Exam: Positive: Atraumatic, Mucous membr. moist/pink Chest Exam: Positive: Clear to auscultation, Normal air movement; Negative: Wheezing Heart Exam: Positive: Tachycardic, Regular Rhythm; Negative: Murmurs Abdomen Exam: Positive: Normal bowel sounds, Soft; Negative: Tenderness Extremity Exam: Negative: Edema, Swelling Skin Exam: Positive: Nl turgor and temperature Neuro Exam: Negative: Normal Speech (incoherent speech at times/tangential thought process vs disorientation) Psych Exam: Negative: Anxiety, Oriented x 3 (A&O to name and place only) Assessment /Plan Assessment 1. Moderate hypercalcemia 2/2 lung adenocarcinoma, improving. In setting of lung adenocarcinoma. Current Ca level 11.2 this morning with corrected Ca 12.3. Ca initial was noted to be 14.8 with increased lethargy. Currently A&OX2 with mild disorientation. s/p 2L IVF bolus, IV NS 200cc/hr, zoledronic acid. On Calcitonin. Per group discussion pt will be on IV NS at rate of 150ml/hr. Cont to monitor BMP 2. Adenocarcinoma of the lung with metastasis. Pt follows with Dr. Yudy Bonilla outpt and undergoing treatment. Repeating CTs for staging per Oncology's request showed stable adenopathy in the left mediastinal region and superior mediastinum 3. LLE DVT. Cont home dose Xarelto 4. PVD. Continue with statin 5. Chronic adrenal insufficiency. Received stress dose steroids in ER. Continue daily home dose 10mg daily from here on. 6. Anemia, macrocytic, likely 2/2 hemodilution vs B12/folate deficiency. Hg 9.6 compared to 12.3 on 11/28/2019. Cont to trend CBC. B12, folate level ordered. Pt did not report GI bleed but as pt only A&OX2 now will order occult blood. Cont home med folic acid. 7. Hypokalemia. K 3.0 this morning likely 2/2 hemodilution vs steroid use. total 60meq ordered for this morning. Mag level ordered. DVT ppx: JENNIFER and on Xarelto Code status: DNR/DNI Plan/VTE VTE Prophylaxis Ordered?: Yes VS, I&O, 24H, Fishbone Vital Signs/I&O Vital Signs Date Time Temp Pulse Resp B/P (MAP) Pulse Ox O2 Delivery O2 Flow Rate FiO2 11/29/19 06:00 99.8 106 20 124/66 (85) 97 Room Air I&O- Last 24 Hours up to 6 AM 11/29/19 05:59 Intake Total 5570 ml Output Total 1650 ml Balance 3920 ml Laboratory Data 24H LABS Laboratory Tests 2 11/28/19 11:58: Urine Color STRAW, Urine Appearance CLEAR, Urine pH 6.0, Urine Specific Crowder 1.019, Urine Protein NEGATIVE, Urine Glucose (UA) NEGATIVE, Urine Ketones NEGATIVE, Urine Blood NEGATIVE, Urine Nitrite NEGATIVE, Urine Bilirubin NEGATIVE, Urine Urobilinogen 0.2, Urine Leukocyte Esterase NEGATIVE, Urine WBC (Auto) 1, Urine RBC (Auto) 1, Urine Hyaline Casts (Auto) 2, Urine Bacteria (Auto) NEGATIVE, Urine Squamous Epithelial Cells 0, Urine Mucus (Auto) SMALL, Urine Sperm (Auto) 11/28/19 13:01: Anion Gap 9, Glomerular Filtration Rate > 60.0, Calcium Level 13.2H, Total Bilirubin 1.1H, Aspartate Amino Transf (AST/SGOT) 55H, Alanine Aminotransferase (ALT/SGPT) 28, Alkaline Phosphatase 79, Total Protein 7.2, Albumin 2.9L, Albumin/Globulin Ratio 0.7 11/28/19 16:41: Anion Gap 6L, Glomerular Filtration Rate > 60.0, Calcium Level 12.4H, Total Bilirubin 1.0, Aspartate Amino Transf (AST/SGOT) 56H, Alanine Aminotransferase (ALT/SGPT) 28, Alkaline Phosphatase 73, Total Protein 6.2L, Albumin 2.8L, Albumin/Globulin Ratio 0.8 11/28/19 21:07: Anion Gap 9, Glomerular Filtration Rate > 60.0, Calcium Level 11.3H, Total Bilirubin 0.8, Aspartate Amino Transf (AST/SGOT) 49H, Alanine Aminotransferase (ALT/SGPT) 26, Alkaline Phosphatase 68, Total Protein 5.9L, Albumin 2.6L, Albumin/Globulin Ratio 0.8 11/29/19 05:51: Nucleated Red Blood Cells % (auto) 0.3H, Immature Platelet Fraction 1.8, Anion Gap 9, Glomerular Filtration Rate > 60.0, Calcium Level 11.2H, Total Bilirubin 0.9, Aspartate Amino Transf (AST/SGOT) 48H, Alanine Aminotransferase (ALT/SGPT) 26, Alkaline Phosphatase 72, Total Protein 6.4, Albumin 2.6L, Albumin/Globulin Ratio 0.7 CBC/BMP Laboratory Tests 11/28/19 13:01 11/28/19 16:41 11/28/19 21:07 11/29/19 05:51 BHAVIN NG DO Nov 29, 2019 07:34
[2019-11-29] MEDS ORDERED: POTASSIUM CHLORIDE 10 MEQ SR TABLET PO ONE ×3 (08:00→17:00)
[2019-11-29] MEDS: predniSONE 5 MG TAB PO SCH (08:51)
[2019-11-29] MEDS: PANTOPRAZOLE 40MG TAB (PROTONIX) PO SCH (08:51)
[2019-11-29] MEDS: CALCITONIN SALMON (MIACALCIN) 400INTERNATIONAL UNITS/2ML INJ (J0630) SQ SCH ×2 (08:51→20:01)
[2019-11-29] MEDS: NS 1,000 ML IV SCH ×3 (08:52→19:52)
[2019-11-29 14:00] VITALS: BP 124/69
[2019-11-29 15:23] LABS: BLOOD UREA NITROGEN 14 MG/DL (7-18); CALCIUM LEVEL 11.1 MG/DL (8.5-10.1); CARBON DIOXIDE LEVEL 21 MEQ/L (21-32); CHLORIDE LEVEL 107 MEQ/L (98-107); CREATININE FOR GFR 0.56 MG/DL (0.70-1.30); GLOMERULAR FILTRATION RATE > 60.0 (>56); GLUCOSE, FASTING 118 MG/DL (70-100); POTASSIUM SERUM 3.4 MEQ/L (3.5-5.1); SODIUM LEVEL 134 MEQ/L (136-145)
[2019-11-29] MEDS: RIVAROXABAN 20 MG TAB (XARELTO) PO SCH (17:22)
[2019-11-29 17:52] LABS: MAGNESIUM LEVEL 1.1 MG/DL (1.8-2.4)
[2019-11-29] MEDS ORDERED: MAGNESIUM OXIDE 400 MG TAB (MAG-OX) PO ONE (18:30)
[2019-11-29] MEDS: MAG SULF 1GM/100ML (MAG RUN) 1 GM in IV 1 EA IV SCH ×2 (18:51→19:52)
[2019-11-29 19:07] LABS: PHOSPHORUS LEVEL 1.3 MG/DL (2.5-4.9)
[2019-11-29] MEDS: ATORVASTATIN 20 MG TAB PO SCH (20:00)
[2019-11-29] MEDS: amLODIPine 10 MG TAB PO SCH (20:00)
[2019-11-29] MEDS: FOLIC ACID 1 MG TAB PO SCH (20:00)
[2019-11-29] MEDS ORDERED: POTASSIUM PHOSPHATE INJ 30 MMOL in D5W 500 ML IV ONE (21:00)
[2019-11-29 22:00] VITALS: BP 119/69
[2019-11-29 22:45] LABS: HEMOGLOBIN 9.2 g/dl (13.5-17.5); MEAN CORPUSCULAR HEMOGLOBIN 33.7 pg (27.0-33.0); MEAN CORPUSCULAR HGB CONC 32.9 g/dl (32.0-36.5); MEAN CORPUSCULAR VOLUME 102.6 fl (80.0-96.0); RED BLOOD COUNT 2.73 10^6/uL (4.30-6.10); WHITE BLOOD COUNT 6.4 10^3/uL (4.0-10.0)
[2019-11-29 22:53] LABS: PLATELET COUNT, AUTOMATED 83 10^3/uL (150-450)
[2019-11-29 23:20] LABS: BLOOD UREA NITROGEN 12 MG/DL (7-18); CALCIUM LEVEL 10.1 MG/DL (8.5-10.1); CARBON DIOXIDE LEVEL 22 MEQ/L (21-32); CHLORIDE LEVEL 106 MEQ/L (98-107); GLOMERULAR FILTRATION RATE > 60.0 (>56); GLUCOSE, FASTING 103 MG/DL (70-100); MAGNESIUM LEVEL 1.6 MG/DL (1.8-2.4); PHOSPHORUS LEVEL 2.2 MG/DL (2.5-4.9); POTASSIUM SERUM 3.6 MEQ/L (3.5-5.1); SODIUM LEVEL 138 MEQ/L (136-145)
[2019-11-30] MEDS: NS 1,000 ML IV SCH ×3 (04:11→23:12)
[2019-11-30 06:00] VITALS: BP 112/71
[2019-11-30 06:26] LABS: HEMATOCRIT 27.7 % (42.0-52.0); HEMOGLOBIN 9.3 g/dl (13.5-17.5); MEAN CORPUSCULAR HEMOGLOBIN 34.3 pg (27.0-33.0); MEAN CORPUSCULAR HGB CONC 33.6 g/dl (32.0-36.5); MEAN CORPUSCULAR VOLUME 102.2 fl (80.0-96.0); RED BLOOD COUNT 2.71 10^6/uL (4.30-6.10); WHITE BLOOD COUNT 6.3 10^3/uL (4.0-10.0)
[2019-11-30 06:28] LABS: PLATELET COUNT, AUTOMATED 97 10^3/uL (150-450)
[2019-11-30 06:47] LABS: ALBUMIN 2.7 GM/DL (3.2-5.2); ALT/SGPT 25 U/L (12-78); BLOOD UREA NITROGEN 11 MG/DL (7-18); CALCIUM LEVEL 10.3 MG/DL (8.5-10.1); CARBON DIOXIDE LEVEL 22 MEQ/L (21-32); CHLORIDE LEVEL 105 MEQ/L (98-107); CREATININE FOR GFR 0.46 MG/DL (0.70-1.30); GLOMERULAR FILTRATION RATE > 60.0 (>56); GLUCOSE, FASTING 88 MG/DL (70-100); POTASSIUM SERUM 3.3 MEQ/L (3.5-5.1); SODIUM LEVEL 134 MEQ/L (136-145)
[2019-11-30] MEDS ORDERED: POTASSIUM CHLORIDE 10 MEQ SR TABLET PO ONE (07:30)
[2019-11-30] MEDS ORDERED: MAGNESIUM OXIDE 400 MG TAB (MAG-OX) PO ONE ×2 (07:30→15:15)
[2019-11-30 07:35] LABS: MAGNESIUM LEVEL 1.3 MG/DL (1.8-2.4); PHOSPHORUS LEVEL 2.1 MG/DL (2.5-4.9)
[2019-11-30] MEDS ORDERED: K-PHOS NEUTRAL 250MG TABLET (SOD.PHOSPHATE/POT.PHOSPHATE) PO SCH (09:00)
[2019-11-30 09:45] LABS: VITAMIN B12 LEVEL > 2000 PG/ML (247-911)
[2019-11-30 09:47] LABS: FOLATE 10.2 NG/ML (>5.4)
[2019-11-30] MEDS: predniSONE 5 MG TAB PO SCH (10:07)
[2019-11-30] MEDS: MAG SULF 1GM/100ML (MAG RUN) 1 GM in IV 1 EA IV SCH ×3 (10:07→16:05)
[2019-11-30] MEDS: PANTOPRAZOLE 40MG TAB (PROTONIX) PO SCH (10:08)
[2019-11-30] MEDS: ACETAMINOPHEN TAB 650MG DOSE (2X325MG) PO PRN (10:09)
--- NOTE | 2019-11-30 11:10 | IPNPDOC ---
Subjective Date Seen The patient was seen on 11/30/19. Subjective Chief Complaint/HPI Patient was noted to be confused by nursing staff as he was agitated toward the aid, and said that he finished the whole meal when the meal is on the table. Pt examined on the bedside today, he denies any chest pain, palpitation, dyspnea, nausea, or vomiting. Reported b/l lower quadrant abdominal pain/suprapubic pain but is unable to give further detail regarding the onset or quality of the pain. He was noted to have 1 mod amount stool and 2 small amount of stool today. Limited ROS was able to be obtained d/t patient clinical condition/mental status. Patient is A&OX3 but does seems mildly disoriented with intermittent incoherent speech General: Denies: Chills, Normal Appetite (decreased oral intake noted) Constitutional: Denies: Chills, Fever Pulmonary: Denies: Dyspnea Cardiovascular: Denies: Chest Pain, Palpitations Gastrointestinal: Reports: Abdominal Pain (in suprapubic region/bilateral lower abd); Denies: Nausea, Vomiting, Constipation Neurological: Reports: Change in speech, Confusion Objective Physical Examination General Exam: Positive: Alert, No Acute Distress, Other (chronically ill looking, tired) Eye Exam: Positive: Conjunctiva & lids normal ENT Exam: Positive: Atraumatic, Mucous membr. moist/pink Chest Exam: Positive: Clear to auscultation, Normal air movement; Negative: Wheezing Heart Exam: Positive: Tachycardic, Regular Rhythm; Negative: Murmurs Abdomen Exam: Positive: Normal bowel sounds, Soft; Negative: Tenderness Extremity Exam: Negative: Edema, Swelling Skin Exam: Positive: Nl turgor and temperature Neuro Exam: Positive: Strength at 5/5 X4 ext, Normal Tone; Negative: Normal Speech (incoherent speech at times vs disorientation) Psych Exam: Positive: Oriented x 3, Other (garbled speech); Negative: Mental status NL, Anxiety Assessment /Plan Assessment 1. Moderate hypercalcemia 2/2 lung adenocarcinoma, improving. Current Ca level 10.3 this morning with corrected Ca 11.3. Ca initial was noted to be 14.8 with increased lethargy. Currently A&OX3 with mild disorientation. s/p 2L IVF bolus, IV NS 200cc/hr, zoledronic acid. D/C calcitonin. Decrease IV NS from 150ml to 100ml/hr. Cont to monitor BMP 2. Adenocarcinoma of the lung with metastasis. Pt follows with Dr. Yudy Bonilla outpt and undergoing treatment. Repeating CTs for staging per Oncology's request showed stable adenopathy in the left mediastinal region and superior mediastinum. Last chemo with immunotherapy October 2019, held as there was a concern for GI bleed. 3. LLE DVT. Cont home dose Xarelto 4. PVD. Continue with statin 5. Chronic adrenal insufficiency. Received stress dose steroids in ER. Continue daily home dose 10mg daily from here on. 6. Anemia, macrocytic, likely 2/2 hemodilution vs B12/folate deficiency. Hg 9.2- 9.6 compared to 12.3 on 11/28/2019. Cont to trend CBC. B12 elevated with folate level wnl. Pt did not report GI bleed but as pt only A&OX2 now will order occult blood. Cont home med folic acid. 7. Hypokalemia, likely 2/2 hypomagnesemia. K 3.3 this morning. 20meq KCl ordered. Recheck BMP in the afternoon 8. Hypomagnesemia. 1.1 yesterday afternoon, 2 Mg run and 1 mag oxide ordered with recheck 1.6 yesterday evening. Another Mag ox ordered. Recheck in the afternoon. 9. Hypophophostemia, likely 2/2 high PTH-rp from lung malignancy. PTH-rp level ordered. Phos level 1.3, and 1 k phos was ordered was recheck 2.2 yesterday afternoon. Recheck Phos level and replete if needed 10. Urinary retention. Pt indicated suprapubic pain/bilateral lower quadrant pain with 600ml urine oupput 11/29/2019. Physical exam revealed bladder fullness, postvoid residual scan showed 1106ml, and 740ml output after straight cath. Start flomax, bladder scan Q6H PRN if >250ml straight cath. 11. Questionable altered mental status. Patient is A&OX3 but is observed to be disoriented; reported confusion by staff. Questionable chemobrain(last tx October 2019) vs hypercalcemia vs other electrolyte disturbances. UA showed no signs of UTI. CT head 11/18/2019 showed no signs of brain mets. Will continue to monitor. Fall precaution. Dr. Manning will speak with patient's this afternoon for patient clinical condition updates and obtain info regarding patient's baseline DVT ppx: JENNIFER and on Xarelto Code status: DNR/DNI Plan/VTE VTE Prophylaxis Ordered?: Yes Plan IVF: Decrease Diet: Continue Current Activity: Continue Current Therapy: PT, OT Diagnostics: Check Labs, Repeat Labs in AM Anticipated Discharge: Home With Services VS, I&O, 24H, Fishbone Vital Signs/I&O Vital Signs Date Time Temp Pulse Resp B/P (MAP) Pulse Ox O2 Delivery O2 Flow Rate FiO2 11/30/19 06:00 98.7 107 20 112/71 (85) 95 Room Air I&O- Last 24 Hours up to 6 AM 11/30/19 06:00 Intake Total 3140 ml Output Total 650 ml Balance 2490 ml Laboratory Data 24H LABS Laboratory Tests 2 11/29/19 14:44: Anion Gap 6L, Glomerular Filtration Rate > 60.0, Calcium Level 11.1H, Phosphorus Level 1.3L, Magnesium Level 1.1L 11/29/19 22:34: Anion Gap 10, Glomerular Filtration Rate > 60.0, Calcium Level 10.1, Phosphorus Level 2.2#L, Magnesium Level 1.6L, Nucleated Red Blood Cells % (auto) 0.0 11/30/19 05:46: Anion Gap 7L, Glomerular Filtration Rate > 60.0, Calcium Level 10.3H, Nucleated Red Blood Cells % (auto) 0.3H, Total Bilirubin 1.0, Aspartate Amino Transf ( T/SGOT) 59H, Alanine Aminotransferase (ALT/SGPT) 25, Alkaline Phosphatase 70, Total Protein 6.0L, Albumin 2.7L, Albumin/Globulin Ratio 0.8 CBC/BMP Laboratory Tests 11/29/19 14:44 11/29/19 22:34 11/30/19 05:46 BHAVIN NG DO Nov 30, 2019 07:27
[2019-11-30] MEDS: TAMSULOSIN 0.4 MG CAP PO SCH (13:56)
[2019-11-30 14:00] VITALS: BP 129/68
[2019-11-30 15:13] LABS: BLOOD UREA NITROGEN 9 MG/DL (7-18); CALCIUM LEVEL 10.6 MG/DL (8.5-10.1); CARBON DIOXIDE LEVEL 21 MEQ/L (21-32); CHLORIDE LEVEL 105 MEQ/L (98-107); GLOMERULAR FILTRATION RATE > 60.0 (>56); GLUCOSE, FASTING 116 MG/DL (70-100); MAGNESIUM LEVEL 1.7 MG/DL (1.8-2.4); PHOSPHORUS LEVEL 2.2 MG/DL (2.5-4.9); POTASSIUM SERUM 3.6 MEQ/L (3.5-5.1); SODIUM LEVEL 133 MEQ/L (136-145)
[2019-11-30] MEDS ORDERED: MAG SULF 1GM/100ML (MAG RUN) 1 GM in IV 1 EA IV SCH (16:00)
[2019-11-30] MEDS: RIVAROXABAN 20 MG TAB (XARELTO) PO SCH (18:10)
[2019-11-30] MEDS: ATORVASTATIN 20 MG TAB PO SCH (20:40)
[2019-11-30] MEDS: FOLIC ACID 1 MG TAB PO SCH (20:40)
[2019-11-30] MEDS: amLODIPine 10 MG TAB PO SCH (20:41)
[2019-11-30 22:00] VITALS: BP 108/63
[2019-11-30 23:06] LABS: BLOOD UREA NITROGEN 8 MG/DL (7-18); CALCIUM LEVEL 9.7 MG/DL (8.5-10.1); CARBON DIOXIDE LEVEL 20 MEQ/L (21-32); CHLORIDE LEVEL 103 MEQ/L (98-107); CREATININE FOR GFR 0.52 MG/DL (0.70-1.30); GLOMERULAR FILTRATION RATE > 60.0 (>56); GLUCOSE, FASTING 110 MG/DL (70-100); MAGNESIUM LEVEL 1.5 MG/DL (1.8-2.4); PHOSPHORUS LEVEL 2.5 MG/DL (2.5-4.9); POTASSIUM SERUM 3.6 MEQ/L (3.5-5.1); SODIUM LEVEL 132 MEQ/L (136-145)
[2019-12-01 06:00] VITALS: BP 106/68
[2019-12-01 06:11] LABS: HEMATOCRIT 27.6 % (42.0-52.0); HEMOGLOBIN 9.2 g/dl (13.5-17.5); MEAN CORPUSCULAR HEMOGLOBIN 33.9 pg (27.0-33.0); MEAN CORPUSCULAR HGB CONC 33.3 g/dl (32.0-36.5); MEAN CORPUSCULAR VOLUME 101.8 fl (80.0-96.0); RED BLOOD COUNT 2.71 10^6/uL (4.30-6.10); WHITE BLOOD COUNT 6.1 10^3/uL (4.0-10.0)
[2019-12-01 06:15] LABS: PLATELET COUNT, AUTOMATED 92 10^3/uL (150-450)
[2019-12-01 06:36] LABS: ALBUMIN 2.7 GM/DL (3.2-5.2); ALT/SGPT 29 U/L (12-78); BILIRUBIN,TOTAL 0.8 MG/DL (0.2-1.0); BLOOD UREA NITROGEN 7 MG/DL (7-18); CALCIUM LEVEL 9.5 MG/DL (8.5-10.1); CARBON DIOXIDE LEVEL 23 MEQ/L (21-32); CHLORIDE LEVEL 102 MEQ/L (98-107); GLOMERULAR FILTRATION RATE > 60.0 (>56); GLUCOSE, FASTING 89 MG/DL (70-100); MAGNESIUM LEVEL 1.2 MG/DL (1.8-2.4); PHOSPHORUS LEVEL 1.7 MG/DL (2.5-4.9); POTASSIUM SERUM 3.3 MEQ/L (3.5-5.1); SODIUM LEVEL 134 MEQ/L (136-145)
[2019-12-01] MEDS: NS 1,000 ML IV SCH ×3 (07:00→21:35)
[2019-12-01] MEDS ORDERED: POTASSIUM CHLORIDE 10 MEQ SR TABLET PO ONE (09:00)
[2019-12-01] MEDS: TAMSULOSIN 0.4 MG CAP PO SCH (09:43)
[2019-12-01] MEDS: MAG SULF 1GM/100ML (MAG RUN) 1 GM in IV 1 EA IV SCH ×3 (09:43→12:16)
[2019-12-01] MEDS: PANTOPRAZOLE 40MG TAB (PROTONIX) PO SCH (09:43)
[2019-12-01] MEDS: predniSONE 5 MG TAB PO SCH (09:43)
[2019-12-01] MEDS: K-PHOS NEUTRAL 250MG TABLET (SOD.PHOSPHATE/POT.PHOSPHATE) PO SCH ×2 (09:52→21:08)
[2019-12-01] MEDS ORDERED: MORPHINE 2 MG/ML 1ML VIAL (J2270) IV PRN (10:15)
[2019-12-01] MEDS: PERCOCET 5MG/325MG TAB PO PRN (10:24)
[2019-12-01 10:39] LABS: LIPASE 86 U/L (73-393)
--- NOTE | 2019-12-01 11:38 | IPNPDOC ---
Subjective Date Seen The patient was seen on 12/01/19. Subjective Chief Complaint/HPI Patient is examined at bedside. He reported that he is very tired. He is A&O to name and place but thought it was in the 1900s. His speech is still incoherent at times. He reported bilateral lower quadrant abdominal pain that feels like some one is stabbing, reported nausea and vomiting prior but not at this time. When being asked if he has any suprapubic pain, patient indicated that he has hip pain at bilateral aspect with bilateral hip pain that extend up to his abdomen. Denies any chest pain, palpitation. Pt is unable to answer if he feels dyspneic. Nursing reported she was reported that patient was noted to be confused. Limited ROS was able to be obtained d/t clinical condition General: Reports: Fatigue Cardiovascular: Denies: Chest Pain, Palpitations Gastrointestinal: Reports: Abdominal Pain; Denies: Nausea, Vomiting Musculoskeletal: Reports: Other Symptoms (bilateral hip pain with pelvic pain at bilateral aspect) Neurological: Reports: Confusion Objective Physical Examination General Exam: Positive: Alert, Mild Distress, Moderate Distress, Other (chronically ill looking, tired, appeared to be in pain starting in the middle of physical exam) Eye Exam: Positive: Conjunctiva & lids normal, Sclera icteric (mild) ENT Exam: Positive: Atraumatic, Mucous membr. moist/pink Chest Exam: Positive: Clear to auscultation, Other (mild scalene use with breathing); Negative: Wheezing Heart Exam: Positive: Tachycardic, Regular Rhythm; Negative: Murmurs Abdomen Exam: Positive: Normal bowel sounds, Soft, Tenderness (in all 4 quadrants worse in b/l lower quadrants, mildly to moderately out of proportion) Extremity Exam: Positive: Other (bilateral pelvic region tenderness and b/l hip tenderness) Skin Exam: Positive: Nl turgor and temperature Neuro Exam: Positive: Normal Tone, Other (strength +3-4/5 in all 4 extremities); Negative: Normal Speech (incoherent speech at times vs disorientation) Psych Exam: Positive: Other (garbled speech. A&O to name and place); Negative: Mood NL, Anxiety, Memory Intact Assessment /Plan Assessment 1. Moderate hypercalcemia 2/2 lung adenocarcinoma, improving. Current Ca level 9.5 this morning with corrected Ca 10.5. Ca initial was noted to be 14.8 with increased lethargy. Currently A&OX2 with mild disorientation. s/p 2L IVF bolus, IV NS 200cc/hr, zoledronic acid. D/C calcitonin. Decrease IV NS from 150ml to 100ml/hr 12/01/2019 but as pt is NPO d/t ileus, IV NS increased to 105ml/hr based on weight. Cont to monitor BMP. PTH-rp pending 2. Metastatic PD-L1 high adenocarcinoma with skeletal involvement mediastinal thoracic involvement. Prior diagnosis per oncology, pt follows Dr. Yudy Bonilla outpt. Repeating CTs for staging per Oncology's request showed stable adenopathy in the left mediastinal region and superior mediastinum. Last chemo with immunotherapy October 2019, held as there was a concern for GI bleed. -Oncology noted pt current therapy" maintenance pemetrexed/bevacizumab to begin. On hold pending GI workup of GI bleeding. S/p Pembrolizumab single agent 10/2017 - 07/2019 stopped for left hilar/mediastinal disease progression. Carboplatin/pemetrexed/bevacizumab four cycles 08/15/2019 - 10/17/2019." 3. LLE DVT. 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 Cont home dose Xarelto. Occult blood ordered, if pos occult blood consider dc xarelto 4. PVD. Continue with statin 5. Chronic adrenal insufficiency questionable masked adrenal crisis. Received stress dose steroids 100mg hydrocortisone in ER. Disorientation, shakiness, fatigue, with nausea/vomiting/diarrhea noted prior to admission. Mild hyponatremia while already on IV NS; Pt reported abdominal pain, bilateral pelvic pain, and bilateral hip pain however no major abnormality noted on KUB, bilateral hip x ray, or pelvic x ray except for ileus, questionable adrenal crisis masked under the condition patient already on prednisone 10mg daily with IV NS 100ml/hr. Continue daily home dose 10mg daily from here on. Received 100mg hydrocortisone IV in ER upon admission, will give 60mg hydrocortisone IV 12/01/2019 in addition to the 10mg prednisone(equivalent to 40mg hydrocortisone) received today. Baseline cortisol level ordered however as pt had received hydrocortisone upon admission and has been on prednisone daily may not indicate endogenous cortisol level; ACTH level pending. FSBS Q4H with hypoglycemia protocol given pt is made NPO for questionable ileus. Bilateral hip X ray and hip X ray showed no acute changes except for nonspecific gas pattern 6. Anemia, macrocytic, likely 2/2 hemodilution vs less likely GI bleed, stable. Hg 9.2-9.6 compared to 12.3 on 11/28/2019. Cont to trend CBC. Folate wnl, B12 elevated. Pt did not report GI bleed but as pt only A&OX2 now will order occult blood. Cont home med folic acid. Consider d/c xarelto if occult blood pos. 7. Hypokalemia, likely 2/2 hypomagnesemia vs renal loss d/t diuresis from steroid use for adrenal insufficiency. K 3.3 this morning. 20meq KCl ordered. Recheck BMP in the afternoon 8. Hypomagnesemia likely 2/2 renal loss d/t diuresis from steroid use. 1.2 this morning and 1.8 last evening. 3 Mg run ordered; recheck Mg level this afternoon, evening, and tomorrow AM. 9. Hypophophostemia, likely 2/2 high PTH-rp from lung malignancy vs renal loss. PTH-rp level ordered. Phos level 1.7 this morning. Increase neutro-phos from QD to BID. Recheck phosphorous level in the afternoon, evening, and tmrw morning. 10. Urinary retention. Physical exam revealed bladder fullness, postvoid residual scan showed 1106ml, and 740ml output after straight cath 11/30/2019 AM. Cont flomax, D/c mc catheter with voiding trial 11. Altered mental status 2/2 adrenal insufficiency vs masked adrenal crisis vs chemo brain vs electrolyte disturbances. Patient is A&OX2 now mildly disoriented/incoherent speech. Questionable chemobrain(last tx October 2019). CT head 11/18/2019 showed no signs of brain mets. Will continue to monitor. Fall p recaution. Dr. Manning will discuss with patient's this afternoon again. 12. B/l lower quadrant abdominal pain questionable d/t adrenal insufficiency vs masked adrenal crisis vs ileus vs r/o infectious colitis/gastroenteritis vs less likely ischemic colitis. Per oncology note for 2 weeks prior to admission, pt has suffered severe anorexia, fatigue, nausea, vomiting; intermittent diarrhea not daily but at time up to two times a day. It was noted that pt received pulse of steroids, felt better for a day or two, then relapsed with similar symptoms. Pt already received 10mg prednisone which is equivalent to 40mg hydrocortisone. Will give another 60mg hydrocortisone to make it stress dose. Although less likely, GI panel to r/o infectious etiology and occult blood to r/o ischemic colitis -CT abd/pelvis 11/28/2019 showed mildly distended urinary bladder otherwise no acute changes, no change in the cyst in the left lobe of the liver or bilateral renal cysts. No new adenopathy in abd/pelvis. -EGD and colonoscopy 11/09/2019 showed normal EGG with small hemorrhoids 13. Possible ileus. KUB showed mildly prominent air filled loops of small large bowel suggesting ileus. Pt reported b/l LQ pain and diffuse tenderness. He was noted to have 1 mod BM with 2 small BM 11/30/2019 AM. Pt will be made NPO except for meds. IV NS increased from 100ml/hr to 105ml/hr for maintenance fluid based on weight. DVT ppx: JENNIFER and on Xarelto Code status: DNR/DNI Plan/VTE VTE Prophylaxis Ordered?: Yes Plan IVF: Discontinue Diet: Make NPO Activity: Continue Current Therapy: PT, OT Diagnostics: Check Labs, Repeat Labs in AM Anticipated Discharge: Home With Services VS, I&O, 24H, [facility] Vital Signs/I&O Vital Signs Date Time Temp Pulse Resp B/P (MAP) Pulse Ox O2 Delivery O2 Flow Rate FiO2 12/01/19 10:54 17 12/01/19 06:00 99.2 99 106/68 (81) 98 11/30/19 22:00 Room Air I&O- Last 24 Hours up to 6 AM 12/01/19 06:00 Intake Total 3717 ml Output Total 4860 ml Balance -1143 ml Laboratory Data 24H LABS Laboratory Tests 2 11/30/19 14:25: Anion Gap 7L, Glomerular Filtration Rate > 60.0, Calcium Level 10.6H, Phosphorus Level 2.2L, Magnesium Level 1.7L 11/30/19 21:48: Anion Gap 9, Glomerular Filtration Rate > 60.0, Calcium Level 9.7, Phosphorus Level 2.5, Magnesium Level 1.5L 12/01/19 05:35: Anion Gap 9, Glomerular Filtration Rate > 60.0, Calcium Level 9.5, Phosphorus Level 1.7#L, Magnesium Level 1.2L, Nucleated Red Blood Cells % (auto) 0.3H, Immature Platelet Fraction 2.1, Total Bilirubin 0.8, Aspartate Amino Transf (AST/SGOT) 66H, Alanine Aminotransferase (ALT/SGPT) 29, Alkaline Phosphatase 78, Total Protein 6.0L, Albumin 2.7L, Albumin/Globulin Ratio 0.8, Lipase 86 CBC/BMP Laboratory Tests 11/30/19 14:25 11/30/19 21:48 12/01/19 05:35 BHAVIN NG DO Dec 01, 2019 11:38
--- NOTE | 2019-12-01 11:51 | REP ---
Clinical: Bilateral pain. Technique: AP and frog lateral views of the right and left hip. Findings: Symmetric age-related changes include increased sclerosis to the acetabulum with minimal spurring and mild joint space narrowing. No acute fracture or dislocation. Impression: Mild relatively symmetric age-related degenerative changes. Electronically Signed by Clay Gómez MD 12/01/2019 11:43 A
--- NOTE | 2019-12-01 11:53 | REP ---
Clinical: Lower abdominal pain. Technique: Single supine view of the abdomen and pelvis. Findings: Mildly prominent air filled loops of small large bowel suggest ileus. Clinical correlation is recommended. No obstruction or obvious perforation. No organomegaly. Skeletal structures are stable. Impression: Possible ileus. Electronically Signed by Clay Gómez MD 12/01/2019 11:44 A
--- NOTE | 2019-12-01 11:54 | REP ---
Clinical: Lower abdominal pain. Technique: Single supine view of the pelvis. Findings: Bowel gas pattern is relatively nonspecific. Skeletal structures are intact. No abnormal calcifications or obvious foreign body. Impression: Unremarkable pelvic radiograph. Electronically Signed by Clay Gómez MD 12/01/2019 11:46 A
[2019-12-01] MEDS ORDERED: HYDROCORTISONE 100 MG/2 ML VIAL (J1720 PER 1) IV ONE (13:30)
[2019-12-01] MEDS ORDERED: GLUCAGON INJ 1MG VIAL SC PRN (14:00)
[2019-12-01] MEDS ORDERED: GLUCOSE 4GM CHEW TABLET PO PRN (14:00)
[2019-12-01] MEDS ORDERED: DEXTROSE 50% 50 ML SYRINGE IV PRN (14:00)
[2019-12-01 14:50] LABS: BLOOD UREA NITROGEN 9 MG/DL (7-18); CALCIUM LEVEL 9.8 MG/DL (8.5-10.1); CARBON DIOXIDE LEVEL 22 MEQ/L (21-32); CHLORIDE LEVEL 102 MEQ/L (98-107); CREATININE FOR GFR 0.58 MG/DL (0.70-1.30); GLOMERULAR FILTRATION RATE > 60.0 (>56); GLUCOSE, FASTING 123 MG/DL (70-100); MAGNESIUM LEVEL 2.1 MG/DL (1.8-2.4); PHOSPHORUS LEVEL 2.7 MG/DL (2.5-4.9); POTASSIUM SERUM 4.1 MEQ/L (3.5-5.1); SODIUM LEVEL 133 MEQ/L (136-145)
[2019-12-01] MEDS: RIVAROXABAN 20 MG TAB (XARELTO) PO SCH (18:13)
[2019-12-01] MEDS: ATORVASTATIN 20 MG TAB PO SCH (21:08)
[2019-12-01] MEDS: amLODIPine 10 MG TAB PO SCH (21:09)
[2019-12-01] MEDS: FOLIC ACID 1 MG TAB PO SCH (21:09)
[2019-12-01 22:00] VITALS: BP 119/71
[2019-12-01 23:09] LABS: BLOOD UREA NITROGEN 11 MG/DL (7-18); CALCIUM LEVEL 9.1 MG/DL (8.5-10.1); CARBON DIOXIDE LEVEL 21 MEQ/L (21-32); CHLORIDE LEVEL 105 MEQ/L (98-107); GLOMERULAR FILTRATION RATE > 60.0 (>56); GLUCOSE, FASTING 108 MG/DL (70-100); MAGNESIUM LEVEL 1.5 MG/DL (1.8-2.4); POTASSIUM SERUM 3.8 MEQ/L (3.5-5.1); SODIUM LEVEL 135 MEQ/L (136-145)
[2019-12-02] MEDS ORDERED: MAG SULF 1GM/100ML (MAG RUN) 1 GM in IV 1 EA IV ONE ×2 (00:45→17:00)
[2019-12-02 06:00] VITALS: BP 133/69
[2019-12-02 06:34] LABS: HEMATOCRIT 28.4 % (42.0-52.0); HEMOGLOBIN 9.5 g/dl (13.5-17.5); MEAN CORPUSCULAR HEMOGLOBIN 34.2 pg (27.0-33.0); MEAN CORPUSCULAR HGB CONC 33.5 g/dl (32.0-36.5); MEAN CORPUSCULAR VOLUME 102.2 fl (80.0-96.0); RED BLOOD COUNT 2.78 10^6/uL (4.30-6.10); WHITE BLOOD COUNT 6.3 10^3/uL (4.0-10.0)
[2019-12-02 06:38] LABS: PLATELET COUNT, AUTOMATED 92 10^3/uL (150-450)
[2019-12-02 06:58] LABS: BLOOD UREA NITROGEN 11 MG/DL (7-18); CALCIUM LEVEL 9.3 MG/DL (8.5-10.1); CARBON DIOXIDE LEVEL 20 MEQ/L (21-32); CHLORIDE LEVEL 102 MEQ/L (98-107); CREATININE FOR GFR 0.49 MG/DL (0.70-1.30); GLOMERULAR FILTRATION RATE > 60.0 (>56); GLUCOSE, FASTING 90 MG/DL (70-100); PHOSPHORUS LEVEL 2.1 MG/DL (2.5-4.9); POTASSIUM SERUM 3.2 MEQ/L (3.5-5.1); SODIUM LEVEL 132 MEQ/L (136-145)
[2019-12-02 06:59] LABS: ALBUMIN 2.8 GM/DL (3.2-5.2); ALT/SGPT 27 U/L (12-78); BILIRUBIN,TOTAL 1.1 MG/DL (0.2-1.0); MAGNESIUM LEVEL 1.6 MG/DL (1.8-2.4); TOTAL PROTEIN 6.3 GM/DL (6.4-8.2)
[2019-12-02] MEDS: K-PHOS NEUTRAL 250MG TABLET (SOD.PHOSPHATE/POT.PHOSPHATE) PO SCH ×2 (09:11→20:33)
[2019-12-02] MEDS: predniSONE 10 MG TAB PO SCH (09:11)
[2019-12-02] MEDS: TAMSULOSIN 0.4 MG CAP PO SCH (09:11)
[2019-12-02] MEDS: MAGNESIUM OXIDE 400 MG TAB (MAG-OX) PO SCH ×2 (09:12→20:33)
[2019-12-02] MEDS: PANTOPRAZOLE 40MG TAB (PROTONIX) PO SCH (09:12)
[2019-12-02] MEDS: PERCOCET 5MG/325MG TAB PO PRN (09:38)
[2019-12-02] MEDS: VANCOMYCIN ORAL SOL 250MG/5ML ORAL SYRINGE PO SCH ×2 (12:25→18:26)
[2019-12-02] MEDS: NS 1,000 ML IV SCH (12:25)
[2019-12-02 14:00] VITALS: BP 139/78
[2019-12-02] MEDS ORDERED: POTASSIUM CHLORIDE 10% LIQ 20 MEQ/15 ML UDC PO ONE (17:00)
[2019-12-02] MEDS: RIVAROXABAN 20 MG TAB (XARELTO) PO SCH (18:26)
[2019-12-02] MEDS: FOLIC ACID 1 MG TAB PO SCH (20:33)
[2019-12-02] MEDS: amLODIPine 10 MG TAB PO SCH (20:33)
[2019-12-02] MEDS: ATORVASTATIN 20 MG TAB PO SCH (20:34)
[2019-12-02 22:00] VITALS: BP 114/68
[2019-12-03] MEDS: VANCOMYCIN ORAL SOL 250MG/5ML ORAL SYRINGE PO SCH ×4 (00:25→17:57)
[2019-12-03] MEDS: NS 1,000 ML IV SCH ×3 (03:26→18:01)
[2019-12-03 06:00] VITALS: BP 111/70
[2019-12-03 06:07] LABS: HEMATOCRIT 27.3 % (42.0-52.0); HEMOGLOBIN 9.2 g/dl (13.5-17.5); MEAN CORPUSCULAR HEMOGLOBIN 33.7 pg (27.0-33.0); MEAN CORPUSCULAR HGB CONC 33.7 g/dl (32.0-36.5); RED BLOOD COUNT 2.73 10^6/uL (4.30-6.10); WHITE BLOOD COUNT 5.9 10^3/uL (4.0-10.0)
[2019-12-03 06:12] LABS: PLATELET COUNT, AUTOMATED 88 10^3/uL (150-450)
[2019-12-03 06:36] LABS: ALBUMIN 2.7 GM/DL (3.2-5.2); ALT/SGPT 34 U/L (12-78); BILIRUBIN,TOTAL 0.9 MG/DL (0.2-1.0); BLOOD UREA NITROGEN 7 MG/DL (7-18); CALCIUM LEVEL 9.2 MG/DL (8.5-10.1); CARBON DIOXIDE LEVEL 21 MEQ/L (21-32); CHLORIDE LEVEL 101 MEQ/L (98-107); CREATININE FOR GFR 0.49 MG/DL (0.70-1.30); GLOMERULAR FILTRATION RATE > 60.0 (>56); GLUCOSE, FASTING 91 MG/DL (70-100); MAGNESIUM LEVEL 1.2 MG/DL (1.8-2.4); PHOSPHORUS LEVEL 1.7 MG/DL (2.5-4.9); SODIUM LEVEL 132 MEQ/L (136-145); TOTAL PROTEIN 6.6 GM/DL (6.4-8.2)
[2019-12-03] MEDS: TAMSULOSIN 0.4 MG CAP PO SCH (09:04)
[2019-12-03] MEDS: MAGNESIUM OXIDE 400 MG TAB (MAG-OX) PO SCH ×2 (09:04→20:21)
--- NOTE | 2019-12-03 09:04 | REP ---
Clinical: Ileus. Technique: Two supine views of the abdomen and pelvis. Comparison: 12/01/2019. Findings: Bowel gas pattern again demonstrates diffusely distended air-filled loops of small and large bowel consistent with ileus and similar to prior examination. Clinical correlation is recommended. Impression: Findings compatible with ileus. Electronically Signed by Clay Gómez MD 12/03/2019 08:56 A
[2019-12-03] MEDS: PANTOPRAZOLE 40MG TAB (PROTONIX) PO SCH (09:05)
[2019-12-03] MEDS: K-PHOS NEUTRAL 250MG TABLET (SOD.PHOSPHATE/POT.PHOSPHATE) PO SCH ×2 (09:05→20:21)
[2019-12-03] MEDS: predniSONE 10 MG TAB PO SCH (09:05)
[2019-12-03] MEDS ORDERED: KCL 20MEQ IN 100ML SWI (KRUN) 20 MEQ in IV 1 EA IV ONE ×2 (09:15)
[2019-12-03] MEDS ORDERED: POTASSIUM CHLORIDE 10% LIQ 20 MEQ/15 ML UDC PO ONE (09:15)
[2019-12-03] MEDS: KCL 10MEQ/100ML SWI (KRUN) X 2 DOSES (20MEQ TOTAL) IV SCH ×4 (10:02→10:51)
[2019-12-03 10:14] LABS: CORTISOL BASELINE 2.5 UG/DL (4.3-22.4)
[2019-12-03] MEDS ORDERED: MORPHINE 2 MG/ML 1ML VIAL (J2270) IV PRN (10:15)
--- NOTE | 2019-12-03 11:55 | IPN ---
DATE OF SERVICE: 12/02/2019 He is a 59-year-old male with lung adenocarcinoma. He was admitted for hypercalcemia of malignancy. His initial calcium was 14. He had developed abdominal pain. X-rays had shown ileus. LABORATORY STUDIES: Today, white count 6.3, hemoglobin 9.5, hematocrit 28.4, platelets remain low at 92. Sodium 132, potassium 3.2 replacement ordered, chloride 102, CO2 20, BUN 11, creatinine 0.49, magnesium was low at 1.6 magnesium run was ordered. Clostridium (C) difficile. Added on vancomycin 125 by mouth every 6 hours. The patient was confused today. Pain is slightly improved. He remains afebrile. OBJECTIVE: Blood pressure 139/78, pulse 100, respirations 18, temperature 98.2. The patient is alert. Pupils are equal and react to light. Extraocular movements (EOMs) intact. Pharynx, tongue, gums pink and moist. Tongue is midline. NECK: Is supple without lymphadenopathy. CHEST: Decreased breath sounds. No wheeze or retraction. HEART: Is regular. ABDOMEN: Has generalized tenderness. No rebound or guarding. No masses, pulsations, or bruits. Bowel sounds are hypoactive. EXTREMITIES: No cyanosis, clubbing, or edema. IMPRESSION AND PLAN: 1. Moderate hypercalcemia secondary to lung adenocarcinoma, improving. Calcium today 9.3. Continue intravenous (IV) saline 100 an hour. Continue . 2. Metastatic PD-L1 high adenocarcinoma with skeletal involvement, mediastinal thoracic involvement. Continue followup with Dr. Yudy Bonilla. Current therapy on hold pending a gastrointestinal (GI) workup. 3. Left lower extremity deep venous thrombosis (DVT) in 2015. Continue on home dose of Xarelto. There is positive occult blood noted. May need to consider discontinuing Xarelto. 4. PVD. Continue with statin. 5. Chronic adrenal insufficiency. Continue fingerstick blood sugars with coverage. 6. Anemia. Continue folic acid. Monitor complete blood counts (CBCs). Hemoglobin and hematocrit improving. 7. Hypokalemia. Replacement ordered. 8. Hypomagnesemia. Magnesium run given. Recheck in the a.m. 9. Hypophosphatemia. Neutra-Phos was increased. 10. Urinary retention. Continue Flomax. Voiding trial failed today. Voided bladder scan for slightly over 900. He voided only 240. José had to be put back in. 11. Altered mental status. Continue to monitor. Fall precautions in place. 12. Bilateral lower quadrant abdominal pain. No acute changes. 13. Possible ileus. Will repeat abdomen x-ray. 14. Positive Clostridium (C) difficile. By mouth vancomycin.
--- NOTE | 2019-12-03 12:02 | IPNPDOC ---
Text Note Date of Service The patient was seen on 12/03/19. NOTE Patient is examined at bedside. No acute overnight events. States that he has been feeling okay. Had a bowel movement this morning Physical Examination General Exam:Alert, chronically ill looking, tired. ENT Exam: Atraumatic, Mucous membr. moist/pink Chest Exam:Clear to auscultation Heart Exam: Regular Rhythm; no Murmurs Abdomen Exam: Normal bowel sounds, Soft, no tenderness, no rebound, no guarding. Extremity Exam: No edema Skin Exam: Nl turgor and temperature Neuro Exam: Normal Tone, Other (strength +3-4/5 in all 4 extremities); Assessment and plan 1. Moderate hypercalcemia 2/2 lung adenocarcinoma, improving. Current Ca level are normal. Ca initial was noted to be 14.8 with increased lethargy. s/p 2L IVF bolus, he also caught his zelecdronic acid, and calcitonin which have been discontinued. He continues to be on IV fluids. IV NS 200cc/hr, zoledronic acid. Cont to monitor BMP. PTH-rp pending 2. Metastatic PD-L1 high adenocarcinoma with skeletal involvement mediastinal thoracic involvement. Prior diagnosis per oncology, pt follows Dr. Yudy Bonilla outpt. Repeating CTs for staging per Oncology's request showed stable adenopathy in the left mediastinal region and superior mediastinum. Last chemo with immunotherapy October 2019, held as there was a concern for GI bleed. Apparently oncology was planning maintenance pemetrexed/bevacizumab, which is on hold pending GI workup of GI bleeding. S/p Pembrolizumab single agent 10/2017 - 07/2019 stopped for left hilar/mediastinal disease progression. Carboplatin/pemetrexed/bevacizumab four cycles 08/15/2019 - 10/17/2019." 3. LLE DVT. 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 Cont home dose Xarelto. 4. PVD. Continue with statin 5. Chronic adrenal insufficiency questionable masked adrenal crisis. Received stress dose steroids 100mg hydrocortisone in ER. ACTH level pending. . He continues to be on his home dose of prednisone. We will continue to monitor. 5. Questionable ileus. X-ray reviewed. The patient does state that he has been passing gas and has a bowel movement this morning. He was on Percocet as well as morphine which has been discontinued. We will continue to monitor. We will repeat the abdominal x-ray in the morning. He has tolerated the diet and hasn't no distention on physical examination. 6. Anemia, macrocytic, likely 2/2 hemodilution vs less likely GI bleed. Currently stable. stool for occult blood also has been ordered. Cont home med folic acid., We'll decide about the Xarelto once a stool for occult blood is fact 7. Hypokalemia, and hypomagnesemia. Likely 2/2 hypomagnesemia vs renal loss d/t diuresis from steroid use for adrenal insufficiency.. We will replace both and monitor. 8. Urinary retention. Physical exam had repeatedly revealed bladder fullness, continue José catheter DVT ppx: JENNIFER and on Xarelto Code status: DNR/DNI Disposition. Likely home once patient's ileus is resolved. VS,Fishbone, I+O VS, Fishbone, I+O Laboratory Tests 12/03/19 05:50 Vital Signs Date Time Temp Pulse Resp B/P (MAP) Pulse Ox O2 Delivery O2 Flow Rate FiO2 12/03/19 06:00 98.9 84 18 111/70 (84) 96 12/02/19 14:00 Room Air I&O- Last 24 Hours up to 6 AM 12/03/19 06:00 Intake Total 3045 ml Output Total 2900 ml Balance 145 ml STEFANIE RAMOS MD Dec 03, 2019 12:02
[2019-12-03] MEDS: ACETAMINOPHEN TAB 650MG DOSE (2X325MG) PO PRN (12:26)
[2019-12-03 14:00] VITALS: BP 110/64
[2019-12-03] MEDS: RIVAROXABAN 20 MG TAB (XARELTO) PO SCH (17:57)
[2019-12-03] MEDS: amLODIPine 10 MG TAB PO SCH (20:21)
[2019-12-03] MEDS: ATORVASTATIN 20 MG TAB PO SCH (20:22)
[2019-12-03] MEDS: FOLIC ACID 1 MG TAB PO SCH (20:22)
[2019-12-03 22:00] VITALS: BP 112/73
[2019-12-04] MEDS: VANCOMYCIN ORAL SOL 250MG/5ML ORAL SYRINGE PO SCH ×5 (00:28→23:26)
[2019-12-04] MEDS: NS 1,000 ML IV SCH ×2 (01:51→11:10)
[2019-12-04 06:00] VITALS: BP 133/76
[2019-12-04] MEDS: ACETAMINOPHEN TAB 650MG DOSE (2X325MG) PO PRN (06:16)
[2019-12-04 06:34] LABS: MAGNESIUM LEVEL 1.3 MG/DL (1.8-2.4); PHOSPHORUS LEVEL 1.8 MG/DL (2.5-4.9)
[2019-12-04] MEDS: PANTOPRAZOLE 40MG TAB (PROTONIX) PO SCH (09:34)
[2019-12-04] MEDS: K-PHOS NEUTRAL 250MG TABLET (SOD.PHOSPHATE/POT.PHOSPHATE) PO SCH ×2 (09:34→20:21)
[2019-12-04] MEDS: predniSONE 10 MG TAB PO SCH (09:34)
[2019-12-04] MEDS: MAGNESIUM OXIDE 400 MG TAB (MAG-OX) PO SCH ×2 (09:34→20:20)
[2019-12-04] MEDS: TAMSULOSIN 0.4 MG CAP PO SCH (09:35)
[2019-12-04 10:03] LABS: BLOOD UREA NITROGEN 10 MG/DL (7-18); CALCIUM LEVEL 9.6 MG/DL (8.5-10.1); CARBON DIOXIDE LEVEL 20 MEQ/L (21-32); CHLORIDE LEVEL 102 MEQ/L (98-107); CREATININE FOR GFR 0.65 MG/DL (0.70-1.30); GLOMERULAR FILTRATION RATE > 60.0 (>56); GLUCOSE, FASTING 101 MG/DL (70-100); POTASSIUM SERUM 3.1 MEQ/L (3.5-5.1); SODIUM LEVEL 133 MEQ/L (136-145)
[2019-12-04] MEDS ORDERED: FIRV50SO PO (11:57)
--- NOTE | 2019-12-04 12:00 | DS.PDOC ---
Discharge Summary General Date of Admission Nov 28, 2019 at 11:23 Date of Discharge 12/04/19 Discharge Summary CHIEF COMPLAINT: WEAKNESS Final diagnosis Hypercalcemia of malignancy Ileus Adenocarcinoma of the lung with metastasis History of present illness and the hospital course Patient is 59 year old male with metastatic adenocarcinoma of the lung, LLE DVT on Xarelto, PVD, and chronic adrenal insufficiency and daily prednisone was sent in from Oncolgist Dr. Mack's office for persistent weakness and hypercalcemia of malignancy. He was reportedly quite lethargic when he came in but improved after receiving 2L IVF boluses. He states that he has not been able to keep anything down for the past one week and feels weak with lack of appetite. Otherwise denies any other complaints including any pain/discomfort, fever, chills, chest pain or SOB. This patient was admitted for Moderate hypercalcemia 2/2 lung adenocarcinoma, which resolved. Current Ca level are normal. Ca initial was noted to be 14.8 with increased lethargy. s/p 2L IVF bolus, he also caught his zelecdronic acid, and calcitonin which have been discontinued. PTH-rp was also done. He has to maintain good oral intake with fluids. He has a history of Metastatic PD-L1 high adenocarcinoma with skeletal involvement mediastinal thoracic involvement. Prior diagnosis per oncology, pt follows Dr. Yudy Bonilla outpt. Repeating CTs for staging per Oncology's request showed stable adenopathy in the left mediastinal region and superior mediastinum. Last chemo with immunotherapy October 2019, held as there was a concern for GI bleed. Apparently oncology was planning maintenance pemetrexed/bevacizumab, which is on hold pending GI workup of GI bleeding. S/p Pembrolizumab single agent 10/2017 - 07/2019 stopped for left hilar/mediastinal disease progression. Carboplatin/pemetrexed/bevacizumab four cycles 08/15/2019 - 10/17/2019." . He also has a history of LLE DVT in left lower extremity in 2014 in chronic anticoagulation. Cont home dose Xarelto. For his Chronic adrenal insufficiency , he Received stress dose steroids 100mg hydrocortisone in ER. ACTH level still pending pending. . He continues to be on his home dose of prednisone and has been maintaining good blood pressure.. He was also having Questionable ileus. X- ray reviewed. The patient does state that he has been passing gas and has a bowel movement this morning.. He also is tolerating the feeds normally with no nausea, no vomiting. His abdomen is completely benign. He was on Percocet as well as morphine which has been discontinued.. He also had Urinary retention. Physical exam had repeatedly revealed bladder fullness, continue José catheter, he was started on Flomax on discharge. Medical benefit from this inpatient stay has been obtained and he will be discharged home today.. He also was diagnosed with C. difficile colitis and for that reason, he has been oral vancomycin already received 6 doses and will require 8 more doses. He is on 125 every 6, vancomycin oral Physical Examination General Exam:Alert, chronically ill looking, tired. ENT Exam: Atraumatic, Mucous membr. moist/pink Chest Exam:Clear to auscultation Heart Exam: Regular Rhythm; no Murmurs Abdomen Exam: Normal bowel sounds, Soft, no tenderness, no rebound, no guarding. Extremity Exam: No edema Skin Exam: Nl turgor and temperature Neuro Exam: Normal Tone, Other (strength +3-4/5 in all 4 extremities); Medications. As per discharge reconciliation medication list Activity as tolerated Diet. 2 g sodium diet Follow-up appointments. PCP in 1 week, hematology oncology in 1 week Condition on discharge. Patient is medically optimized for discharge Discharge disposition: Home Total time spent on this discharge including coordination of care, review of chart documentation and actual contact is around 35 minutes Vital Signs/I&Os Vital Signs Date Time Temp Pulse Resp B/P (MAP) Pulse Ox O2 Delivery O2 Flow Rate FiO2 12/04/19 06:00 97.8 100 18 133/76 (95) 98 Room Air I&O- Last 24 Hours up to 6 AM 12/04/19 06:00 Intake Total 3270 ml Output Total 1650 ml Balance 1620 ml Laboratory Data Labs 24H Laboratory Tests 2 12/03/19 16:22: Bedside Glucose (Misc Panel) 124H 12/03/19 21:17: Bedside Glucose (Misc Panel) 104 12/04/19 05:43: Bedside Glucose (Misc Panel) 108H 12/04/19 06:04: Anion Gap 11, Glomerular Filtration Rate > 60.0, Calcium Level 9.6, Phosphorus Level 1.8L, Magnesium Level 1.3L 12/04/19 11:27: Bedside Glucose (Misc Panel) 104 CBC/BMP Laboratory Tests 12/04/19 06:04 FSBS Laboratory Tests Test 12/03/19 16:22 12/03/19 21:17 12/04/19 05:43 12/04/19 11:27 Range/Units Bedside Glucose (Misc Panel) 124 104 108 104 70-105 MG/DL Microbiology Microbiology 12/02/19 Gastrointestinal Tract Panel (PCR) - Final, Complete Clostridium Difficile A/B 12/02/19 Stool Occult Blood (ИВАН) - Final, Complete Discharge Medications Scheduled Amlodipine Besylate (Amlodipine Besylate) 10 Mg Tab, 10 MG PO QHS, (Reported) Atorvastatin Calcium (Atorvastatin Calcium) 80 Mg Tab, 80 MG PO QHS, (Reported) Cyanocobalamin (Vitamin B-12) (B-12) 1,000 Mcg Tablet, 1,000 MCG PO DAILY, (Reported) Folic Acid (Folic Acid) 1 Mg Tablet, 1 MG PO QHS, (Reported) Pantoprazole Sodium (Pantoprazole Sodium) 40 Mg Tab, 40 MG PO DAILY, (Reported) Prednisone (Prednisone) 5 Mg Tablet, 10 MG PO QAM, (Reported) FOR ADRENAL INSUFFICIENCY. MAY DOUBLE FOR ACUTE ILLNESS. Rivaroxaban (Xarelto) 20 Mg Tab, 20 MG PO QHS, (Reported) Vancomycin HCl (Firvanq) 50 Mg/1 Ml Soln.recon, 125 MG PO Q6H Scheduled PRN Ondansetron (Ondansetron Odt) 4 Mg Tab.rapdis, 4 MG PO Q6H PRN for NAUSEA OR VOMITING, (Reported) Allergies Coded Allergies: Penicillins (Verified Allergy, Intermediate, RASH, 11/02/19) aspirin (Verified Allergy, Intermediate, RASH, 11/02/19) STEFANIE RAMOS MD Dec 04, 2019 12:00
[2019-12-04] MEDS ORDERED: FLOM0.4C39 PO (12:03)
[2019-12-04 14:00] VITALS: BP 110/67
[2019-12-04] MEDS ORDERED: POTASSIUM CHL PWD 20 MEQ PACKET PO ONE (17:45)
[2019-12-04] MEDS ORDERED: MAGNESIUM OXIDE 400 MG TAB (MAG-OX) PO ONE (17:45)
[2019-12-04] MEDS: RIVAROXABAN 20 MG TAB (XARELTO) PO SCH (18:11)
[2019-12-04] MEDS: ATORVASTATIN 20 MG TAB PO SCH (20:19)
[2019-12-04 20:20] VITALS: BP 100/60
[2019-12-04] MEDS: amLODIPine 10 MG TAB PO SCH (20:20)
[2019-12-04] MEDS: FOLIC ACID 1 MG TAB PO SCH (20:20)
[2019-12-04 22:00] VITALS: BP 99/52
[2019-12-05 06:00] VITALS: BP 110/72
[2019-12-05] MEDS: VANCOMYCIN ORAL SOL 250MG/5ML ORAL SYRINGE PO SCH ×2 (06:10→11:11)
[2019-12-05] MEDS: MAGNESIUM OXIDE 400 MG TAB (MAG-OX) PO SCH (09:10)
[2019-12-05] MEDS: TAMSULOSIN 0.4 MG CAP PO SCH (09:10)
[2019-12-05] MEDS: K-PHOS NEUTRAL 250MG TABLET (SOD.PHOSPHATE/POT.PHOSPHATE) PO SCH (09:10)
[2019-12-05] MEDS: predniSONE 10 MG TAB PO SCH (09:10)
[2019-12-05] MEDS: PANTOPRAZOLE 40MG TAB (PROTONIX) PO SCH (09:10)
[2019-12-05] MEDS ORDERED: POTA20TA6 PO (10:39)
[2019-12-05] MEDS ORDERED: MAGN400T2 PO (10:40)
--- NOTE | 2019-12-05 10:41 | DS.PDOC ---
Discharge Summary General Date of Admission Nov 28, 2019 at 11:23 Date of Discharge 12/04/19 Discharge Summary CHIEF COMPLAINT: WEAKNESS Final diagnosis Hypercalcemia of malignancy Ileus Adenocarcinoma of the lung with metastasis History of present illness and the hospital course Patient is 59 year old male with metastatic adenocarcinoma of the lung, LLE DVT on Xarelto, PVD, and chronic adrenal insufficiency and daily prednisone was sent in from Oncolgist Dr. Mack's office for persistent weakness and hypercalcemia of malignancy. He was reportedly quite lethargic when he came in but improved after receiving 2L IVF boluses. He states that he has not been able to keep anything down for the past one week and feels weak with lack of appetite. Otherwise denies any other complaints including any pain/discomfort, fever, chills, chest pain or SOB. This patient was admitted for Moderate hypercalcemia 2/2 lung adenocarcinoma, which resolved. Current Ca level are normal. Ca initial was noted to be 14.8 with increased lethargy. s/p 2L IVF bolus, he also caught his zelecdronic acid, and calcitonin which have been discontinued. PTH-rp was also done. He has to maintain good oral intake with fluids. He has a history of Metastatic PD-L1 high adenocarcinoma with skeletal involvement mediastinal thoracic involvement. Prior diagnosis per oncology, pt follows Dr. Yudy Bonilla outpt. Repeating CTs for staging per Oncology's request showed stable adenopathy in the left mediastinal region and superior mediastinum. Last chemo with immunotherapy October 2019, held as there was a concern for GI bleed. Apparently oncology was planning maintenance pemetrexed/bevacizumab, which is on hold pending GI workup of GI bleeding. S/p Pembrolizumab single agent 10/2017 - 07/2019 stopped for left hilar/mediastinal disease progression. Ca rboplatin/pemetrexed/bevacizumab four cycles 08/15/2019 - 10/17/2019." . He also has a history of LLE DVT in left lower extremity in 2014 in chronic anticoagulation. Cont home dose Xarelto. For his Chronic adrenal insufficiency , he Received stress dose steroids 100mg hydrocortisone in ER. ACTH level still pending pending. . He continues to be on his home dose of prednisone and has been maintaining good blood pressure.. He was also having Questionable ileus. X- ray reviewed. The patient does state that he has been passing gas and has a bowel movement this morning.. He also is tolerating the feeds normally with no nausea, no vomiting. His abdomen is completely benign. He was on Percocet as well as morphine which has been discontinued.. He also had Urinary retention. Physical exam had repeatedly revealed bladder fullness, continue José catheter, he was started on Flomax on discharge. Medical benefit from this inpatient stay has been obtained and he will be discharged home today.. He also was diagnosed with C. difficile colitis and for that reason, he has been oral vancomycin already received 6 doses and will require 8 more doses. He is on 125 every 6, vancomycin oral Physical Examination General Exam:Alert, chronically ill looking, tired. ENT Exam: Atraumatic, Mucous membr. moist/pink Chest Exam:Clear to auscultation Heart Exam: Regular Rhythm; no Murmurs Abdomen Exam: Normal bowel sounds, Soft, no tenderness, no rebound, no guarding. Extremity Exam: No edema Skin Exam: Nl turgor and temperature Neuro Exam: Normal Tone, Other (strength +3-4/5 in all 4 extremities); Medications. As per discharge reconciliation medication list Activity as tolerated Diet. 2 g sodium diet Follow-up appointments. PCP in 1 week, hematology oncology in 1 week Condition on discharge. Patient is medically optimized for discharge Discharge disposition: Home Total time spent on this discharge including coordination of care, review of chart documentation and actual contact is around 35 minutes Vital Signs/I&Os Vital Signs Date Time Temp Pulse Resp B/P (MAP) Pulse Ox O2 Delivery O2 Flow Rate FiO2 12/05/19 06:00 99.8 126 19 110/72 (85) 95 Room Air I&O- Last 24 Hours up to 6 AM 12/05/19 06:00 Intake Total 3005 ml Output Total 0 ml Balance 3005 ml Laboratory Data Labs 24H Laboratory Tests 2 12/04/19 11:27: Bedside Glucose (Misc Panel) 104 12/04/19 16:18: Bedside Glucose (Misc Panel) 130H 12/05/19 01:20: Bedside Glucose (Misc Panel) 101 12/05/19 05:45: Bedside Glucose (Misc Panel) 92 FSBS Laboratory Tests Test 12/04/19 11:27 12/04/19 16:18 12/05/19 01:20 12/05/19 05:45 Range/Units Bedside Glucose (Misc Panel) 104 130 101 92 70-105 MG/DL Microbiology Microbiology 12/02/19 Gastrointestinal Tract Panel (PCR) - Final, Complete Clostridium Difficile A/B 12/02/19 Stool Occult Blood (ИВАН) - Final, Complete Discharge Medications Scheduled Amlodipine Besylate (Amlodipine Besylate) 10 Mg Tab, 10 MG PO QHS, (Reported) Atorvastatin Calcium (Atorvastatin Calcium) 80 Mg Tab, 80 MG PO QHS, (Reported) Cyanocobalamin (Vitamin B-12) (B-12) 1,000 Mcg Tablet, 1,000 MCG PO DAILY, (Reported) Folic Acid (Folic Acid) 1 Mg Tablet, 1 MG PO QHS, (Reported) Magnesium Oxide (Magnesium Oxide) 400 Mg Tablet, 1 TAB PO DAILY for constipation Pantoprazole Sodium (Pantoprazole Sodium) 40 Mg Tab, 40 MG PO DAILY, (Reported) Potassium Chloride (Potassium Chloride) 20 Meq Tab.er.prt, 1 TAB PO DAILY Prednisone (Prednisone) 5 Mg Tablet, 10 MG PO QAM, (Reported) FOR ADRENAL INSUFFICIENCY. MAY DOUBLE FOR ACUTE ILLNESS. Rivaroxaban (Xarelto) 20 Mg Tab, 20 MG PO QHS, (Reported) Tamsulosin HCl (Flomax) 0.4 Mg Capsule, 0.4 MG PO DAILY Vancomycin HCl (Firvanq) 50 Mg/1 Ml Soln.recon, 125 MG PO Q6H Scheduled PRN Ondansetron (Ondansetron Odt) 4 Mg Tab.rapdis, 4 MG PO Q6H PRN for NAUSEA OR VOMITING, (Reported) Allergies Coded Allergies: Penicillins (Verified Allergy, Intermediate, RASH, 11/02/19) aspirin (Verified Allergy, Intermediate, RASH, 11/02/19) GME ATTESTATION GME ATTESTATION My faculty preceptor for this patient encounter was physically present during the encounter and was fully available. All aspects of the patient interview, examination, medical decision making process, and medical care plan development were reviewed and approved by the faculty preceptor. The faculty preceptor is aware and concurs with the plan as stated in the body of this note and will attest to such by his/her cosignature. ATTENDING NOTE Patient was seen and examined by me. Agree with the above assessment and plan STEFANIE RAMOS MD Dec 05, 2019 10:41
[2019-12-05] MEDS ORDERED: POTASSIUM CHLORIDE 10 MEQ SR TABLET PO ONE (11:00)
[2019-12-05] MEDS ORDERED: MAGNESIUM OXIDE 400 MG TAB (MAG-OX) PO ONE (11:00)
== END 2019-12-05 14:19 | disposition home or self-care (01) | DRG 425 ==
LOC: M ED 09:15 → M ED INP 11:23 → ENRESERV 11:37 → M MSPAV 12:20 → UNDODISIN 12-04 17:37
PROVIDERS: ADMIT Student in an Organized Health Care Education/Training Program; ATTEND Internal Medicine
DX: E83.52 Hypercalcemia (principal); C79.51 Secondary malignant neoplasm of bone; C34.90 Malignant neoplasm of unspecified part of unspecified bronchus or lung; E27.40 Unspecified adrenocortical insufficiency; K56.7 Ileus, unspecified; Z79.01 Long term (current) use of anticoagulants; I73.9 Peripheral vascular disease, unspecified; Z79.52 Long term (current) use of systemic steroids; Z79.899 Other long term (current) drug therapy; Z88.0 Allergy status to penicillin; Z88.6 Allergy status to analgesic agent; Z87.891 Personal history of nicotine dependence; E87.6 Hypokalemia; R33.9 Retention of urine, unspecified; E83.42 Hypomagnesemia; E83.39 Other disorders of phosphorus metabolism